=== PATIENT | male | born 1960 | race Caucasian/White ===

== ENCOUNTER 2022-05-15 07:59 | Outpatient (CLI) | payer BC, SELFPAY | END 2022-05-15 08:00 | disposition home or self-care (01) | LOC: ANHSURGERY 08:04 | PROVIDERS: PCP Family Medicine; Visit Provider Surgery | DX: Z01.812 Encounter for preprocedural laboratory examination (principal); K43.2 Incisional hernia without obstruction or gangrene | CPT/HCPCS: 36415; 86850; 86900; 86901 ==

== ENCOUNTER 2022-05-15 08:04 | Outpatient (CLI) | payer BC, SELFPAY ==
[2022-05-15 10:12] LABS: Basophils Percent Auto 0.7 % (0.2-1.2); Eosinophils Absolute Auto 0.1 K/mm3 (0-0.3); Eosinophils Percent Auto 1.8 % (0-4.4); Hematocrit 44.8 % (42.0-52.0); Hemoglobin 15.1 g/dL (14.0-18.0); Immature Granulocyte Absolute 0.01 K/mm3 (0.00-0.031); Immature Granulocyte Percent A 0.2 % (0-0.5); Lymphocytes Absolute Auto 2.32 K/mm3 (0.9-3.2); Lymphocytes Percent Auto 40.8 % (18.3-44.2); Mean Corpuscular HGB Conc 33.7 g/dl (32-36); Mean Corpuscular Hemoglobin 29.8 pg (26-34); Mean Corpuscular Volume 88.4 fl (80-100); Mean Platelet Volume 9.5 fl (7.4-10.4); Monocytes Absolute Auto 0.4 K/mm3 (0.1-0.6); Monocytes Percent Auto 6.3 % (2.6-8.5); Neutrophils Absolute Auto 2.9 K/mm3 (1.3-6.7); Neutrophils Percent Auto 50.2 % (45.5-73.1); Platelet Count Result 233 k/mm3 (150-375); Red Blood Count 5.07 M/mm3 (4.6-6.20); Red Cell Distribution Width 13.8 % (11.5-14.5); White Blood Count 5.7 K/mm3 (4.5-10.0)
[2022-05-15 10:15] LABS: Alanine Aminotransferase 33 U/L (6-50); Albumin Level 4.5 g/dL (3.5-5.1); Alkaline Phosphatase 68 U/L (38-126); Anion Gap 9 mmol/L (8-16); Aspartate Amino Transferase 32 U/L (17-59); Bilirubin,Total 1.4 mg/dL (0.2-1.3); Blood Urea Nitrogen 17 mg/dL (9-20); Calcium 9.4 mg/dL (8.4-10.2); Carbon Dioxide 27 mmol/L (22-30); Chloride 105 mmol/L (98-107); Cholesterol 219 mg/dL (0-200); Estimated Glomerular Filt Rate > 60; Glucose 100 mg/dL (65-110); HDL Direct 34 mg/dL; Potassium 4.3 mmol/L (3.4-5.0); Sodium 141 mmol/L (137-145); Triglycerides 210 mg/dL (<150)
[2022-05-15 10:25] LABS: Hemoglobin A1C 5.4 % (<5.7); LDL Cholesterol Direct 137 mg/dL
[2022-05-15 10:44] LABS: Prostate Specific Antigen 1.4 ng/mL (< OR = 4.0)
[2022-05-23 15:46] LABS: Testosterone Free 63.9 pg/mL (35.0-155.0); Testosterone Total 463 ng/dL (250-1100)
== END 2022-05-15 08:05 | disposition home or self-care (01) ==
PROVIDERS: PCP Family Medicine; Visit Provider Family Medicine
DX: R53.83 Other fatigue (principal); Z13.228 Encounter for screening for other metabolic disorders; E66.9 Obesity, unspecified; R73.01 Impaired fasting glucose; Z13.220 Encounter for screening for lipoid disorders; Z12.5 Encounter for screening for malignant neoplasm of prostate
CPT/HCPCS: 36415; 80053; 80061; 83036; 84153; 84402; 84403; 85025; 86850; 86900; 86901; G0103

== ENCOUNTER 2022-05-19 00:22 | Day surgery (SDC) | payer BC, SELFPAY ==
[2022-05-09 10:53] VITALS: BMI 35.8
--- NOTE | 2022-05-09 10:56 | PC.NURSE ---
Report to the Outpatient Waiting Room, entrance under the green pavilion located off [facility], at time 10:30 on date 05/19/22. Planned Procedure Time: 12:30. Time changes happen often and if your time is changed the preop area will call you the afternoon before. - You and your visitor will be asked to self-screen and do not enter if you have any COVID symptoms. - Only one visitor is requested with a max of two and NO children visitors are allowed at this time. - The patient visitor may be requested to leave or wait in car when not with patient due to distancing restrictions. - A mask is optional within the hospital at this time. Patients may have clear liquids (water, carbonated beverages, clear teas, apple juice) until 3 hours prior to surgery (9:30) with a maximum of 20 ounces. - No food from midnight until time of surgery Take the following medications with a SIP of water the morning of surgery: NONE DO NOT STOP ANY OF YOUR OTHER PRESCRIPTION MEDICATIONS PRIOR TO SURGERY EXCEPT THE FOLLOWING Medications to discontinue per physician: VITAMINS/SUPPLEMENTS Date to take last dose: 05/15/22 Please no make-up, nail citizen of [place], hairspray, perfume, deodorant, or body powder the day of surgery. No jewelry (including any body piercings) or valuables the day of surgery, leave them at home. Please take a shower or bath the night before, or the morning of, surgery with an antibacterial soap (HIBICLENS). Wear comfortable, loose fitting clothing. - Jewelry must be removed prior to entering the operating room. Rings and piercings that are not removed may be cut off. - The hospital will not accept responsibility for valuables. - Please leave all valuables, including medications, at home the day of surgery. If you are going home after surgery, a licensed school bus driver/mechanic must drive you home. - NO public transportation without another adult if you receive anesthesia. - We recommend that an adult stay with you for 24 hours following discharge. - We also recommend that you do not drive, make important decision, drink alcoholic beverages, or take any drugs that were not prescribed by your health care provider for at least 24 hours after your discharge time. Follow any additional instructions given to you from your surgeon. If you or anyone in your household have experienced Covid symptoms in the past week, please notify your surgeon or the nurse liaison at the phone number below for possible testing. Telephone instructions given to MANUEL TRUJILLO and asked if any additional questions and then verbalized understanding. Patient advised to call surgeon office or pre surgery nurse liaison [phone] if any additional questions.
[2022-05-19] VITALS (9 sets, daily range): BP systolic 106–152; BP diastolic 62–90; PULSE 46–58; RESP 12–16; TEMP 36.1–36.4; O2SAT 92–100
--- NOTE | 2022-05-19 07:21 | PM.IMHP ---
H&P: HPI History of Present Illness Date/Time: 05/19/22 07:21 Chief Complaint: periumbilical incisional hernia Narrative: Darrel is a 61 y/o male who presents to the office at the request of Dr. Ordonez for evaluation of an umbilical bulge. He states he first noticed this several years ago. He states he does have occasional pain at his umbilicus after heavy lifting. He states the bulge is not reducible. He denies any problems with BM's. Review of Systems Review of Systems: All systems reviewed & are unremarkable except as noted in HPI and below PMFSH Past Medical History Medical History Cochlear implant in place (~2010) Cochlear implant in place (~2013) FH: cholecystectomy (~2017) Surgical History Surgical History History of cochlear implant 2012 and 2015 Hx laparoscopic cholecystectomy 2017 Family History Family History Father Hypertension Heart disease Mother Hypertension Social History Social History Social History: Caffeine- coffee/soda Smoking status: Never smoker Alcohol intake: current Drinks per week: 4 Alcohol use details: BEER Substance use: never Substance use type: does not use Living arrangements: alone Spiritual care concerns: No Meds Home Medications and Allergies Home Medications Medication Instructions Recorded Confirmed Type cholecalciferol (vitamin D3) 125 125 mcg PO DAILY 05/09/22 05/09/22 History mcg (5,000 unit) tablet (Vitamin D3) coenzyme Q10 100 mg capsule 100 mg PO DAILY 05/09/22 05/09/22 History (CoQ-10) multivitamin 1 tablet PO DAILY 05/09/22 05/09/22 History omega 6-ldn-rlo-fish oil 1,000 mg 1 cap PO DAILY 05/09/22 05/09/22 History (120 mg-180 mg) capsule (Fish Oil) zinc acetate 50 mg (zinc) capsule 50 mg PO DAILY 05/09/22 05/09/22 History Allergies Allergy/AdvReac Type Severity Reaction Status Date / Time No Known Allergies Allergy Verified 05/09/22 10:54 Exam Const: General: cooperative, comfortable and no acute distress Resp: Auscultation: clear to auscultation bilaterally Cardio: Rate: regular rate Rhythm: regular rhythm GI: Inspection: normal to inspection and non-distended GI Palp: Yes abdominal tenderness, Yes Tenderness to palpation present (GI) and Yes Hernia present (supraumbilical incisional hernia measuring approx 3 cm) Assessment and Plan Assessment and plan (1) Incisional hernia: Qualifiers: Obstruction and gangrene presence: without obstruction or gangrene Qualified Code(s): K43.2 - Incisional hernia without obstruction or gangrene Code(s): K43.2 - Incisional hernia without obstruction or gangrene Status: Acute Assessment and Plan: will setup for robotic assisted repair c mesh
--- NOTE | 2022-05-19 10:35 | WPDHPUPDATE1 ---
History and Physical Update Update Date/Time: 05/19/22 10:35 History and Physical has been reviewed, including an updated exam of the patient. There are NO changes in the patient's condition. Risks, benefits, and alternatives have been discussed and questions answered. Patient agrees to proceed with procedure.
--- NOTE | 2022-05-19 10:50 | WPDANESEPPF ---
Anes - Initial Pre Proc Eval Procedure: Operation Date: 05/19/22 12:30 Proposed Procedures p Robotic Assisted Incisional Hernia Repair - Mary Alice Mckeon MD Date/Time: 05/19/22 10:50 Surgeon: Mary Alice Mckeon MD Pre Op Diagnosis: incisional hernia Patient Data Age: 61 Gender: M Height: 1.83 m Weight: 121.8 kg Last Vital Signs Temp 97.6 F 05/19/22 10:15 Pulse 58 L 05/19/22 10:15 Resp 16 05/19/22 10:15 BP 152/82 H 05/19/22 10:15 Pulse Ox 100 05/19/22 10:15 O2 Del Method Room Air 05/19/22 10:15 Allergies Allergy/AdvReac Type Severity Reaction Status Date / Time No Known Allergies Allergy Verified 05/19/22 10:29 Home Medications Medication Instructions Recorded Confirmed Type cholecalciferol (vitamin D3) 125 125 mcg PO DAILY 05/09/22 05/19/22 History mcg (5,000 unit) tablet (Vitamin D3) coenzyme Q10 100 mg capsule 100 mg PO DAILY 05/09/22 05/19/22 History (CoQ-10) multivitamin 1 tablet PO DAILY 05/09/22 05/19/22 History omega 7-clf-ccw-fish oil 1,000 mg 1 cap PO DAILY 05/09/22 05/19/22 History (120 mg-180 mg) capsule (Fish Oil) zinc acetate 50 mg (zinc) capsule 50 mg PO DAILY 05/09/22 05/19/22 History Patient hx anesthesia problems: none Family hx anesthesia problems: none Results Review: All pre-operative results and documents have been reviewed as part of the pre-operative evaluation. [facility] Past Medical History Medical History Cochlear implant in place (~2010) Cochlear implant in place (~2013) FH: cholecystectomy (~2017) Surgical History Surgical History History of cochlear implant 2012 and 2016 Hx laparoscopic cholecystectomy 2018 Family History Family History Father Hypertension Heart disease Mother Hypertension Social History Social History Social History: Caffeine- coffee/soda Smoking status: Never smoker Alcohol intake: current Drinks per week: 4 Alcohol use details: BEER Substance use: never Substance use type: does not use Living arrangements: alone Spiritual care concerns: No Anes - Eval Final PreProcedure Day of Procedure 05/19/22 10:50 Patient weight: obese Heart: regular rate and rhythm Lungs: clear to auscultation Airway: Mallampati scale class III Neurological: alert and oriented Last oral intake: >/= 8 hours ASA classification: III Emergent: no Anesthetic plan: proceed Anesthesia type and monitoring: general ETT and standard monitoring Results Review: All pre-operative results and documents have been reviewed as part of the pre-operative evaluation. Informed Consent: The patient's anesthetic plan and its attendant risks and benefits were discussed with the patient/family/POA. Questions were solicited and answers provided to the satisfaction of the patient/family/POA.
[2022-05-19] MEDS: LACTATED RINGERS 1,000 ML 30 ML IV CONT ×2 (11:00→13:42)
[2022-05-19] MEDS: ACETAMINOPHEN 500 MG TABLET 1000 MG PO (11:00)
[2022-05-19] MEDS: KETOROLAC 15 MG/ML VIAL (*BKC) IV PUSH (11:01)
[2022-05-19] MEDS: ceFAZolin 3 GM/D5W 100 ML 100 ML IVPB (11:17)
[2022-05-19] MEDS: BUPIVACAINE/EPINEPHRINE 0.5% 50 ML VIAL 30 ML INFILTRATE (11:25)
--- NOTE | 2022-05-19 13:36 | W.PM.PROC2 ---
Procedure Note - Detailed Date of Procedure 05/19/22 Pre-op Diagnosis recurrent incisional hernia measuring approximately 3.5 cm Post-op Diagnosis Same Procedure Performed robotic assisted transabdominal preperitoneal repair recurrent incisional hernia measuring approximately 3.5 cm with mesh Surgeon Mary Alice Mckeon MD Anesthesia General Indications 61-year-old male presenting with supraumbilical bulging progressively worsening over the last few years. The patient reports he had previous cholecystectomy and subsequent hernia repair in the area. Findings Supraumbilical recurrent incisional hernia measuring 3.5 cm Description of Procedure The patient was taken the operating room placed in the supine position. After adequate induction of general anesthesia, the patient was prepped and draped in normal sterile fashion. A time-out was then done to verify the patient's identity as well as the procedure being performed. I began by making a 5 mm incision in the left upper quadrant. Through this, a Veress needle was placed into the peritoneal cavity and CO2 gas was insufflated. After adequate pneumoperitoneum was achieved, a 5 mm trocar was placed through this incision. I then placed the laparoscope through this trocar site and under direct visualization I placed a 8 mm port in the left mid abdomen as well as an additional 8 mm port in the left lower abdomen. I then moved the camera to the lower port and replaced the 5 mm port with a 12 mm airport. The robot was then docked to the 3 port sites. I then went to the robotic console. I began by identifying the hernia. A moderate-sized incarcerated supraumbilical hernia was noted. I created a preperitoneal flap approximately 3 cm lateral to the hernia. This flap was carried widely superior and inferior to the defect. I then was able to reduce this hernia. The hernia was noted to contain a large amount of preperitoneal fat. Once reduced, I also reduced and dissected out the hernia sac. There was noted to be permanent suture from previous repair. I then carried the flap distally past the hernia. I then closed the approximately 3.5 cm defect with 0 strata fix suture. I then placed a 4.[address] mesh into the abdominal cavity. The positional stitch was placed in the middle of the mesh and brought up centering the mesh over the defect. Once this was done, I used 2 O Vicryl suture in an interrupted fashion to secure the mesh to the abdominal wall in all 4 cardinal directions. Once the mesh was sutured in, I was happy with our tension-free repair. The mesh was noted to have good overlap of the defect. I then removed the positioning device. I then closed the flap with 2 0 V lock. At this point, the robot was undocked and all ports were removed. I then closed the 12 mm port site with an 0 Vicryl [id number]-[id number] suture at the fascial level. All port sites were then closed with 4 O Monocryl subcuticular suture. The patient tolerated the procedure well, is extubated in the operating room postoperative, and will be transferred to the recovery room in stable condition. Implants 11 cm Ventralight mesh placed in the preperitoneal position Estimated Blood Loss 5 Drains No Packing No Pathology None sent Complications No immediate complications Condition Stable Disposition PACU [facility] Billing Surgery - Charge Forward: Surgery Billing
[2022-05-19] MEDS: oxyCODONE HCL (*CRX) 5 MG TAB IR PO (15:12)
== END 2022-05-19 16:14 | disposition home or self-care (01) ==
PROVIDERS: PCP Family Medicine; Visit Provider Surgery
PROC: (CPT 49615; principal; 2022-05-19 12:30)
DX: K43.2 Incisional hernia without obstruction or gangrene (principal); E66.9 Obesity, unspecified; Z68.36 Body mass index [BMI] 36.0-36.9, adult
CPT/HCPCS: 49615; S2900; A9270; C1781; J0690; J1100; J1885; J2250; J2405; J2704; J3010; J7030; J7120

== ENCOUNTER 2022-06-10 20:31 | Inpatient (IN) | payer BC, SELFPAY ==
--- NOTE | ~2022-06-10 | XR_ITS ---
Portable upright view of the abdomen Clinical history: NG tube placement Findings: NG tube is in satisfactory position. Multiple dilated small bowel loops are compatible with obstruction. No free air evident. No abnormal mass lesion or calcification is seen. Osseous structur es are intact. Impression: NG tube in satisfactory position. Small bowel obstruction. Reviewed, dictated and finalized at location . Impression: NG tube in satisfactory position. Small bowel obstruction.
--- NOTE | ~2022-06-10 | CT_ITS ---
CT of the Abdomen and Pelvis: Indication: Abdominal pain, recent surgery Technique: 2.5 mm axial scans were obtained through the abdomen and pelvis following intravenous adm inistration of 100 cc of Omnipaque 350. Dose reduction technique was used on this scan by utilizing a utomated exposure control and iterative reconstruction technique. The dose-length product (DLP) was 1 168.30 mGy-cm. Findings: Scans through the lung bases are unremarkable. There is an 8 mm hypodense structure in the inferior right hepatic lobe, indeterminate (axial image 7 6). The spleen, pancreas, adrenals and kidneys are within normal limits. Cholecystectomy clips are pr esent. No evidence of aortic aneurysm. No lymphadenopathy. There are multiple dilated loops of small bowel, with abrupt transition point anteriorly just right o f midline at the level of the umbilicus (axial image 109). Distal small bowel loops and large bowel a re decompressed. There is mild inflammatory change about the region of the transition point, with pos sible focal herniation or adherence of small bowel loops anteriorly at the site of the transition poi nt. Images through the pelvis were performed. Urinary bladder unremarkable. Prostate gland is mildly enla rged. Trace pelvic ascites present. Bilateral L5 pars interarticularis defects are present. Impression: Small bowel obstruction, with transition point as detailed above. Possible focal herniation or adhere nce of small bowel loops anteriorly at the site of the transition point. Trace pelvic ascites. 8 mm indeterminate hypodense structure in the right hepatic lobe. Reviewed, dictated and finalized at [facility]. Impression: Small bowel obstruction, with transition point as detailed above. Possible foca l herniation or adherence of small bowel loops anteriorly at the site of the tr ansition point. Trace pelvic ascites. 8 mm indeterminate hypodense structure in the right hepatic lobe.
[2022-06-10 20:38] VITALS: BP 131/87; PULSE 84; RESP 17; TEMP 36.4; O2SAT 100
[2022-06-10 20:58] LABS: Basophils Percent Auto 0.2 % (0.2-1.2); Eosinophils Absolute Auto 0.1 K/mm3 (0-0.3); Eosinophils Percent Auto 0.4 % (0-4.4); Hematocrit 50.7 % (42.0-52.0); Immature Granulocyte Absolute 0.03 K/mm3 (0.00-0.031); Immature Granulocyte Percent A 0.2 % (0-0.5); Lymphocytes Absolute Auto 1.89 K/mm3 (0.9-3.2); Lymphocytes Percent Auto 14.3 % (18.3-44.2); Mean Corpuscular HGB Conc 33.5 g/dl (32-36); Mean Corpuscular Hemoglobin 29.9 pg (26-34); Mean Corpuscular Volume 89.1 fl (80-100); Monocytes Absolute Auto 0.8 K/mm3 (0.1-0.6); Monocytes Percent Auto 5.8 % (2.6-8.5); Neutrophils Absolute Auto 10.5 K/mm3 (1.3-6.7); Neutrophils Percent Auto 79.1 % (45.5-73.1); Platelet Count Result 289 k/mm3 (150-375); Red Blood Count 5.69 M/mm3 (4.6-6.20); Red Cell Distribution Width 13.5 % (11.5-14.5); White Blood Count 13.2 K/mm3 (4.5-10.0)
[2022-06-10 21:12] LABS: Alanine Aminotransferase 62 U/L (6-50); Albumin Level 5.2 g/dL (3.5-5.1); Alkaline Phosphatase 98 U/L (38-126); Anion Gap 16 mmol/L (8-16); Aspartate Amino Transferase 54 U/L (17-59); Bilirubin,Total 3.6 mg/dL (0.2-1.3); Blood Urea Nitrogen 34 mg/dL (9-20); Calcium 10.2 mg/dL (8.4-10.2); Carbon Dioxide 22 mmol/L (22-30); Chloride 96 mmol/L (98-107); Estimated CRCL calculation 65 ml/min; Estimated Glomerular Filt Rate 51; Glucose 120 mg/dL (65-110); Lipase 90 U/L (23-300); Potassium 4.4 mmol/L (3.4-5.0); Sodium 134 mmol/L (137-145)
[2022-06-10 22:37] LABS: Appearance Urine Cloudy (Clear); Bacteria Urine None Seen /hpf; Bilirubin Urine 2+ (Negative); Blood Urine Trace (Negative); Calcium Oxalate Crystals Urine Present /hpf; Color Urine Dark Yellow (Yellow); Glucose Urine UA Negative (Negative); Hyaline Casts Urine Present /lpf; Ketones Urine Trace mg/dL (Negative); Leukocyte Esterase Ur Trace LEU/UL (Negative); Mucus Urine Present /lpf; Nitrate Urine Negative (Negative); Protein Urine 2+ mg/dL (Negative); RBC Urine 21-50 /hpf (0-2); Squamous Epithelial Cell Urine Occasional /hpf (Few)
[2022-06-10 22:43] LABS: Specific Grav Ur 1.036 (1.001-1.035)
[2022-06-10 22:46] LABS: Add Urine Microscopic? YES
[2022-06-10] MEDS: SODIUM CHLORIDE 0.9% IV 1,000 ML 999 ML IV CONT (23:59)
[2022-06-11] VITALS (16 sets, daily range): BP systolic 122–151; BP diastolic 59–90; PULSE 50–67; RESP 10–20; TEMP 35.9–37.4; O2SAT 67–98; BMI 34.4
[2022-06-11] MEDS: ONDANSETRON INJ 4 MG/2 ML VIAL IV PUSH
--- NOTE | 2022-06-11 01:39 | ED.GENADULT ---
HPI - General Adult General Chief complaint: Abdominal Pain Stated complaint: abd pain Time Seen by Provider: 06/10/22 23:37 History of Present Illness HPI narrative: Patient is a 59-year-old gentleman who presents the emergency department with chief complaint of abdominal discomfort. Patient reports that he had a hernia surgery done by Dr. Courtney on the the patient reports that since Thursday he started having some discomfort in his abdomen some fullness and reports that he had some nausea and vomiting patient reports that he had a bowel movement on Thursday reports has not had a bowel movement since the patient does report that is not passing gas patient denies fever Related Data Home Medications Medication Instructions Recorded Confirmed cholecalciferol (vitamin D3) 125 125 mcg PO DAILY 05/09/22 06/03/22 mcg (5,000 unit) tablet (Vitamin D3) coenzyme Q10 100 mg capsule 100 mg PO DAILY 05/09/22 06/03/22 (CoQ-10) multivitamin 1 tablet PO DAILY 05/09/22 06/03/22 omega 4-dph-qyv-fish oil 1,000 mg 1 cap PO DAILY 05/09/22 06/03/22 (120 mg-180 mg) capsule (Fish Oil) zinc acetate 50 mg (zinc) capsule 50 mg PO DAILY 05/09/22 06/03/22 Allergies Allergy/AdvReac Type Severity Reaction Status Date / Time No Known Allergies Allergy Verified 06/03/22 10:09 Review of Systems Review of Systems: A 10 system review of systems was completed on the patient and is negative except for what is stated in the HPI. Nursing and ancillary documentation was reviewed. PMFSH Past Medical History Medical History Cochlear implant in place (~2010) Cochlear implant in place (~2013) FH: cholecystectomy (~2017) Surgical History Surgical History History of cochlear implant 2012 and 2015 Hx laparoscopic cholecystectomy 2018 S/P hernia repair robotic assisted transabdominal preperitoneal repair recurrent incisional hernia measuring approximately 3.5 cm with mesh 05/19/22 Family History Family History Father Hypertension Heart disease Mother Hypertension Social History Social History Social History: Caffeine- coffee/soda Smoking status: Never smoker Alcohol intake: current Drinks per week: 4 Alcohol use details: BEER Substance use: never Substance use type: does not use Living arrangements: alone Spiritual care concerns: No Exam Narrative: GENERAL: Well-appearing, well-nourished, and in no acute distress. HEAD: Normocephalic, atraumatic. EYES: PERRLA and EOMI. ENT: Nares clear, no rhinorrhea or epistaxis. Mucous membranes moist. NECK: Supple. CHEST: Clear to auscultation. No respiratory distress. HEART: Regular rate and rhythm. No murmur heard. Normal peripheral pulses. ABDOMEN: Soft, diffuse mild tenderness to palpation, nondistended, normal active bowel sounds. EXTREMITIES: Normal range of motion. No edema. SKIN: Warm, dry, no rash. NEURO: No focal deficits. Alert and oriented x3. PSYCH: Normal mood and affect. Course Vital Signs Vital signs: Vital Signs Temperature 36.4 C 06/10/22 20:38 Pulse Rate 84 06/10/22 20:38 Respiratory Rate 17 06/10/22 20:38 Blood Pressure 131/87 06/10/22 20:38 Pulse Oximetry 100 06/10/22 20:38 Oxygen Delivery Room Air 06/10/22 20:38 Temperature 36.4 C 06/10/22 20:38 Pulse Rate 57 L 06/11/22 01:31 Respiratory Rate 16 06/11/22 01:31 Blood Pressure 124/68 06/11/22 01:31 Pulse Oximetry 98 06/11/22 01:31 Oxygen Delivery Room Air 06/10/22 20:38 Medical Decision Making [facility] Narrative Medical decision making narrative: Differential diagnosis includes small bowel obstruction, intra-abdominal infection, perforation Laboratory studies were obtained which showed a white bloo
[2022-06-11] MEDS: SODIUM CHLORIDE 0.9% IV 1,000 ML 125 ML IV CONT ×2 (03:26→18:19)
--- NOTE | 2022-06-11 04:22 | ADMGEN ---
This patient, Darrel Montenegro, was admitted to 2 Medical Room 259-01. Patient/family oriented to hospital policies and general routines including ID bracelet, bed and alarms, visiting hours, pain management, procedures, bathroom and other care routines, personal items, smoking policy, room service/diet, and visiting hours. Information on how to activate the Rapid Response Team has been discussed. Patient/Family are encouraged to report perceived risks to care and to ask questions if they do not understand what they are told or what they should do.
--- NOTE | 2022-06-11 10:01 | PM.IMHP ---
H&P: HPI History of Present Illness Date/Time: 06/11/22 10:01 Chief Complaint: Abdominal pain Narrative: The patient is a 61-year-old male presenting to the emergency department complaining of progressively worsening, crampy abdominal pain. The patient reports that the pain has been progressively worsening over the last 3-4 days. The patient reports that the pain is diffuse in nature and crampy. The patient reports he had a normal bowel movement on Thursday, however has not really had any bowel function since. The patient reports he has been progressively more nauseous and has had multiple episodes of emesis over the last day or so. The patient reports poor appetite with the episode. Review of Systems Constitutional: Constitutional: Reports as per HPI, Reports anorexia, Denies chills, Reports fatigue, Denies fever(s), Denies increased appetite, Reports lethargy, Reports malaise, Denies night sweats, Reports poor appetite, Denies snoring, Reports weakness, Denies weight gain and Denies weight loss ENT: Reports system reviewed and no additional complaints, except as documented Cardiovascular: Cardiovascular: Reports no additional cardiovascular complaints Respiratory: Respiratory: Reports no additional respiratory complaints Gastrointestinal: Gastrointestinal: Reports as per HPI, Reports abdominal pain, Reports belching, Reports bloating, Reports change in bowel habits, Reports constipation, Reports GI cramping, Reports early satiety, Reports nausea, Reports vomiting and Denies hematemesis Genitourinary: Genitourinary: Reports no additional male genitourinary complaints Musculoskeletal: Musculoskeletal: Reports no additional musculoskeletal complaints Integumentary/Breasts: Skin/Breast: Reports system reviewed and no additional complaints, except as docu Neurologic: Reports system reviewed and no additional complaints, except as documented Psychiatric: Psychiatric: Reports no additional psychiatric complaints Endocrine: Endocrine: Reports no additional endocrine complaints Hematologic/Lymphatic: Hematologic/Lymphatic: Reports no additional hematologic/lymphatic complaints Allergic/Immunologic: Allergic/Immunologic: Reports no additional allergic/immunologic complaints PMFSH Past Medical History Medical History Cochlear implant in place (~2010) Cochlear implant in place (~2013) FH: cholecystectomy (~2018) Surgical History Surgical History History of cochlear implant 2012 and 2015 Hx laparoscopic cholecystectomy 2018 S/P hernia repair robotic assisted transabdominal preperitoneal repair recurrent incisional hernia measuring approximately 3.5 cm with mesh 05/19/22 Family History Family History Father Hypertension Heart disease Mother Hypertension Social History Social History Social History: Caffeine- coffee/soda Smoking status: Never smoker Alcohol intake: current Drinks per week: 3 Alcohol use details: BEER Substance use: never Substance use type: does not use Lack of Transportation: No Lack of Food: Never True Current Housing: I Have Housing Concerned About Future Housing: No Difficulty Paying Gas/Electric Bills: No Difficulty Paying for Meds: No Currently Unemployed: No Education: Bachelor's Degree Difficulty w/ Childcare or Family Care: No Living arrangements: alone Spiritual care concerns: No Meds Home Medications and Allergies Home Medications Medication Instructions Recorded Confirmed Type cholecalciferol (vitamin D3) 125 125 mcg PO DAILY 05/09/22 06/11/22 History mcg (5,000 unit) tablet (Vitamin D3) coenzyme Q10 100 mg capsule 100 mg PO DAILY 05/09/22 06/11/22 History (CoQ-10) multivitamin 1 tablet PO DAILY 05/09/22
--- NOTE | 2022-06-11 10:13 | WPDHPUPDATE1 ---
History and Physical Update Update Date/Time: 06/11/22 10:13 History and Physical has been reviewed, including an updated exam of the patient. There are NO changes in the patient's condition. Risks, benefits, and alternatives have been discussed and questions answered. Patient agrees to proceed with procedure. plan for diagnostic laparoscopy, possible bowel resection
--- NOTE | 2022-06-11 14:02 | WPDANESEPPF ---
Anes - Initial Pre Proc Eval Procedure: Operation Date: 06/11/22 15:00 Proposed Procedures p Exploratory Laparoscopy - Mary Alice Mckeon MD Date/Time: 06/11/22 14:02 Surgeon: Maximilian French DO Pre Op Diagnosis: Small Bowel Obstruction Patient Data Age: 61 Gender: M Height: 1.83 m Weight: 115.3 kg Last Vital Signs Temp 37.1 C 06/11/22 13:59 Pulse 62 06/11/22 13:59 Resp 16 06/11/22 13:59 BP 132/79 06/11/22 13:59 Pulse Ox 96 06/11/22 13:59 O2 Del Method Room Air 06/11/22 13:59 Allergies Allergy/AdvReac Type Severity Reaction Status Date / Time No Known Allergies Allergy Verified 06/03/22 10:09 Home Medications Medication Instructions Recorded Confirmed Type cholecalciferol (vitamin D3) 125 125 mcg PO DAILY 05/09/22 06/11/22 History mcg (5,000 unit) tablet (Vitamin D3) coenzyme Q10 100 mg capsule 100 mg PO DAILY 05/09/22 06/11/22 History (CoQ-10) multivitamin 1 tablet PO DAILY 05/09/22 06/11/22 History omega 9-ldy-gel-fish oil 1,000 mg 2 cap PO DAILY 05/09/22 06/11/22 History (120 mg-180 mg) capsule (Fish Oil) zinc acetate 50 mg (zinc) capsule 100 mg PO DAILY 05/09/22 06/11/22 History docusate sodium 100 mg capsule 100 mg PO BID #30 caps 05/19/22 06/11/22 Rx (Colace) Laboratory Tests 06/10/22 06/10/22 06/10/22 20:46 20:46 21:13 WBC 13.2 K/mm3 H K/mm3 (4.5-10.0) RBC 5.69 M/mm3 M/mm3 (4.6-6.20) Hgb 17.0 g/dL g/dL (14.0-18.0) Hct 50.7 % % (42.0-52.0) MCV 89.1 fl fl (80-100) MCH 29.9 pg pg (26-34) MCHC 33.5 g/dl g/dl (32-36) RDW 13.5 % % (11.5-14.5) Plt Count 289 k/mm3 k/mm3 (150-375) MPV 9.0 fl fl (7.4-10.4) Immature Gran % (Auto) 0.2 % % (0-0.5) Neut % (Auto) 79.1 % H % (45.5-73.1) Lymph % (Auto) 14.3 % L % (18.3-44.2) Glynn % (Auto) 5.8 % % (2.6-8.5) Eos % (Auto) 0.4 % % (0-4.4) Baso % (Auto) 0.2 % % (0.2-1.2) Lymph # (Auto) 1.89 K/mm3 K/mm3 (0.9-3.2) Glynn # (Auto) 0.8 K/mm3 H K/mm3 (0.1-0.6) Eos # (Auto) 0.1 K/mm3 K/mm3 (0-0.3) Baso # (Auto) 0.0 K/mm3 K/mm3 (0.0-0.1) Abs Immat Gran (auto) 0.03 K/mm3 K/mm3 (0.00-0.031) Absolute Neuts (auto) 10.5 K/mm3 H K/mm3 (1.3-6.7) Absolute Nucleated RBC 0.0 K/mm3 K/mm3 (0.0-0.012) Nucleated RBC % 0.0 % % (0.0-0.2) Sodium 134 mmol/L L mmol/L (137-145) Potassium 4.4 mmol/L mmol/L (3.4-5.0) Chloride 96 mmol/L L mmol/L (98-107) Carbon Dioxide 22 mmol/L mmol/L (22-30) Anion Gap 16 mmol/L mmol/L (8-16) BUN 34 mg/dL H D mg/dL (9-20) Creatinine 1.40 mg/dL H mg/dL (0.7-1.3) Estim Creat Clear Calc 65 ml/min ml/min Estimated GFR 51 L (59 - ) Glucose 120 mg/dL H mg/dL (65-110) Calcium 10.2 mg/dL mg/dL (8.4-10.2) Total Bilirubin 3.6 mg/dL H mg/dL (0.2-1.3) AST 54 U/L U/L (17-59) ALT 62 U/L H U/L (6-50) Alkaline Phosphatase 98 U/L U/L (38-126) Total Protein 9.0 g/dL H g/dL (6.3-8.2) Albumin 5.2 g/dL H g/dL (3.5-5.1) Lipase 90 U/L U/L (23-300) Urine Color Dark yellow (Yellow) Urine Appearance Cloudy H (Clear) Urine pH 5.0 (5.0-9.0) Ur Specific [place] 1.036 H (1.001-1.035) Urine Protein 2+ mg/dL H mg/dL (Negative) Urine Glucose (UA) Negative mg/dL mg/dL (Negative) Urine Ketones Trace mg/dL mg/dL (Negative) Ur Blood (Man) Trace (Negative) Urine Nitrate Negative (Negative) Urine Bilirubin 2+ H (Negative) Urine Urobilinogen 1.0 mg/dL mg/dL (<2.0) Leukocyte Esterase Rfl Trace DIANA/UL H DIANA/UL
--- NOTE | 2022-06-11 14:12 | PCCCNOTE ---
On 06/11/22, the student, [Herminia Armstrong ], provided care and completed [facility] documentation on this patient. I have reviewed the student's documentation and agree with the findings.
[2022-06-11] MEDS: LACTATED RINGERS 1,000 ML 30 ML IV CONT ×2 (14:13→15:50)
[2022-06-11] MEDS: ceFAZolin 2 GM/D5W 50 ML 2 GM/50 ML BAG IVPB (14:30)
[2022-06-11] MEDS: BUPIVACAINE/EPINEPHRINE 0.5% 50 ML VIAL INFILTRATE (14:58)
--- NOTE | 2022-06-11 15:42 | W.PM.PROC2 ---
Procedure Note - Detailed Date of Procedure 06/11/22 Pre-op Diagnosis Small Bowel Obstruction Post-op Diagnosis Other (Small bowel herniation through peritoneal flap dehiscence) Procedure Performed exploratory laparoscopy, reduction of herniated small bowel, repair of peritoneal flap dehiscence with absorbable tacks and omental patch Surgeon Mary Ailce Mckeon MD Anesthesia General Indications 61 year old male re-presented to the hospital with small-bowel obstruction after recurrent incisional hernia repair. Imaging consistent with herniation of small bowel through peritoneal defect Findings central peritoneal flap dehiscence measuring approximately 1 and half a cm Description of Procedure The patient was taken to the operating room placed in the supine position. After adequate induction of general anesthesia, the patient was prepped and draped in the normal sterile fashion. A time-out was then done to verify the patient's identity, as well as the procedure being performed. I began by localizing the previous port site in the left upper quadrant. I then made a 5 mm incision through this port site and a Veress needle was placed into the peritoneal cavity. CO2 gas was then insufflated through the Veress needle. After adequate pneumoperitoneum was achieved, the Veress needle was removed and placed a 5 mm Optiview under direct visualization into the peritoneal cavity. I then examined the abdominal cavity. There was noted to be some omental adhesions to the abdominal wall. There was noted to be a loop of small intestine herniated through a peritoneal defect. I then localized the area of the previously placed 5 mm left mid abdominal wall port site. An incision was made and under direct visualization a 5 mm port was placed into this site. I then took down the omental adhesions with the LigaSure device under direct visualization. I then used a nontraumatic grasper and gently reduced the loop of small intestine that was herniating into this peritoneal defect. I was able to reduce the small intestine back into the peritoneal cavity. Upon careful examination of the small intestine, it was noted to be friable and free of pathology. I then examined the defect in the peritoneum. The location of the defect was a central dehiscence of the previously made peritoneal flap. This defect was noted to measure approximately 1.5 cm. There was noted to be room around the defect to allow herniation. Given these findings, the decision was made to use a absorbable Tacker to tack the edges of the defect to the mesh. This was done with the absorbable Tacker under direct visualization. Once the edges were completely tacked circumferentially around the defect, placed an omental patch over the exposed mesh. The omentum was tacked to the mesh again using the absorbable Tacker. We then desufflated the abdomen, watching the repair come back into contact with the abdominal contents. No further area of possible future herniation was noted. Both port sites were then removed. Both port sites were closed with 4-0 Monocryl subcuticular suture and Dermabond was placed on these wounds. The patient tolerated the procedure well and will be transferred to the recovery room in stable condition. Estimated Blood Loss 10 Urine Output 0 Drains No Packing No Pathology None sent Complications No immediate complications Condition Stable Disposition PACU [facility] Billing Surgery - Charge Forward: Surgery Billing
[2022-06-11] MEDS: MORPHINE SULFATE (*CRX) 2 MG/ML INJ IV PUSH ×2 (18:16→22:30)
[2022-06-12] VITALS (7 sets, daily range): BP systolic 112–131; BP diastolic 62–70; PULSE 58–62; RESP 17–20; TEMP 32.7–37.2; O2SAT 91–97
[2022-06-12] MEDS: SODIUM CHLORIDE 0.9% IV 1,000 ML 125 ML IV CONT ×4 (00:30→23:36)
[2022-06-12 05:17] LABS: Hemoglobin 13.6 g/dL (14.0-18.0); Mean Corpuscular HGB Conc 33.2 g/dl (32-36); Mean Corpuscular Hemoglobin 29.7 pg (26-34); Mean Corpuscular Volume 89.5 fl (80-100); Mean Platelet Volume 8.9 fl (7.4-10.4); Platelet Count Result 231 k/mm3 (150-375); Red Blood Count 4.58 M/mm3 (4.6-6.20); Red Cell Distribution Width 13.2 % (11.5-14.5); White Blood Count 5.5 K/mm3 (4.5-10.0)
[2022-06-12 05:28] LABS: Alanine Aminotransferase 56 U/L (6-50); Albumin Level 3.8 g/dL (3.5-5.1); Alkaline Phosphatase 71 U/L (38-126); Anion Gap 6 mmol/L (8-16); Aspartate Amino Transferase 42 U/L (17-59); Bilirubin,Total 2.9 mg/dL (0.2-1.3); Blood Urea Nitrogen 29 mg/dL (9-20); Calcium 8.4 mg/dL (8.4-10.2); Carbon Dioxide 27 mmol/L (22-30); Chloride 101 mmol/L (98-107); Estimated CRCL calculation 75 ml/min; Estimated Glomerular Filt Rate > 60; Glucose 109 mg/dL (65-110); Potassium 4.2 mmol/L (3.4-5.0); Sodium 134 mmol/L (137-145)
[2022-06-12] MEDS: ENOXAPARIN 40 MG/0.4 ML SYRINGE SUB-Q (08:12)
--- NOTE | 2022-06-12 09:44 | WPDANESPN ---
Anes - Prog Note Post-Op Date/Time: 06/12/22 09:44 Cardiovascular status: normal Respiratory status: normal Airway patency: baseline Mental status: baseline Post-Op hydration status: normal Vital Signs: Last Vital Signs Temp 37.2 C 06/12/22 08:37 Pulse 59 L 06/12/22 08:37 Resp 18 06/12/22 08:37 BP 121/68 06/12/22 08:37 Pulse Ox 93 06/12/22 08:37 O2 Del Method Room Air 06/12/22 08:00 O2 Flow Rate 8 06/11/22 16:40 Pain Score (VAS): 05/23 I/O: Intake & Output 06/11/22 06/12/22 06/12/22 23:59 07:59 15:59 Intake Total 500 1000 1000 Output Total 600 0 Balance -100 1000 1000 Laboratory Tests 06/12/22 05:11 06/12/22 05:10 06/12/22 06/12/22 05:10 05:11 WBC 5.5 RBC 4.58 L Hgb 13.6 L D Hct 41.0 L MCV 89.5 MCH 29.7 MCHC 33.2 RDW 13.2 Plt Count 231 MPV 8.9 Sodium 134 L Potassium 4.2 Chloride 101 Carbon Dioxide 27 Anion Gap 6 L BUN 29 H Creatinine 1.20 Estim Creat Clear Calc 75 Estimated GFR > 60 Glucose 109 Calcium 8.4 Total Bilirubin 2.9 H AST 42 ALT 56 H Alkaline Phosphatase 71 Total Protein 7.0 Albumin 3.8 Microbiology 06/10/22 21:13 Urine Clean Catch Urine Culture - Final Post-procedural complaints: none Patient Feedback: Patient satisfied with anesthetic care.
--- NOTE | 2022-06-12 10:16 | PM.PNGS ---
Progress Note: A&P Assessment and Plan (1) Small bowel obstruction: Code(s): K56.609 - Unspecified intestinal obstruction, unspecified as to partial versus complete obstruction Status: Acute Assessment and Plan: doing well, will clamp NG and poss dc later today, start clears if NG out, encourage OOB/IS Subjective Subjective Date/Time Seen: 06/12/22 10:16 feels better, pain, N/V improved Review of Systems Review of Systems: All systems reviewed & are unremarkable except as noted in HPI and below Exam Const: General: cooperative, comfortable and no acute distress Resp: Auscultation: clear to auscultation bilaterally Cardio: Rate: regular rate Rhythm: regular rhythm GI: Inspection: normal to inspection, distended and incision GI Palp: Yes abdominal tenderness, Yes Soft to palpation, Yes Tenderness to palpation present (GI), No Guarding due to palpation present (GI) and No Rigid due to palpation Objective Data Vital Signs Vital Signs: Vital Signs - 24 hr 06/11/22 13:59 06/11/22 15:55 06/11/22 16:10 Temperature 37.1 C 36.9 C Pulse Rate 62 55 L 52 L Respiratory Rate 16 18 19 Blood Pressure 132/79 144/82 H 145/85 H Pulse Oximetry 96 96 95 Oxygen Delivery Room Air Simple Face Mask Simple Face Mask Oxygen Flow Rate 8 8 06/11/22 16:25 06/11/22 16:40 06/11/22 16:55 Temperature Pulse Rate 60 60 50 L Respiratory Rate 10 L 16 13 Blood Pressure 149/83 H 144/85 H 151/81 H Pulse Oximetry 98 98 92 Oxygen Delivery Simple Face Mask Simple Face Mask Room Air Oxygen Flow Rate 8 8 06/11/22 17:10 06/11/22 17:25 06/11/22 17:35 Temperature 36.4 C L Pulse Rate 60 56 L 59 L Respiratory Rate 16 15 18 Blood Pressure 137/86 137/90 141/84 H Pulse Oximetry 94 93 92 Oxygen Delivery Room Air Room Air Oxygen Flow Rate 06/11/22 17:50 06/11/22 18:20 06/11/22 19:20 Temperature 36.3 C L 36.3 C L 36.7 C Pulse Rate 61 58 L 67 Respiratory Rate 20 18 18 Blood Pressure 138/74 135/72 134/65 Pulse Oximetry 93 92 67 L Oxygen Delivery Oxygen Flow Rate 06/11/22 20:00 06/11/22 23:18 06/12/22 03:20 Temperature 37.4 C 32.7 C L Pulse Rate 66 60 Respiratory Rate 18 18 Blood Pressure 129/59 L 131/66 Pulse Oximetry 95 91 Oxygen Delivery Room Air Oxygen Flow Rate 06/12/22 06:05 06/12/22 08:37 06/12/22 08:00 Temperature 36.9 C 37.2 C Pulse Rate 59 L 59 L Respiratory Rate 18 18 Blood Pressure 121/68 Pulse Oximetry 93 93 Oxygen Delivery Room Air Oxygen Flow Rate Intake/Output Intake/Output: Intake & Output 06/09/22 06/10/22 06/11/22 06/12/22 23:59 23:59 23:59 23:59 Intake Total 3550 1999 Output Total 1000 0 Balance 2550 1999 Meds/Results Medications: Active Medications Generic Name Dose Route Start Last Admin Trade Name Freq PRN Reason Stop Dose Admin Diphenhydramine HCl 25 mg 06/11/22 17:35 Diphenhydramine Hcl Inj 50 Mg/Ml Vial IV PUSH Q6H PRN Itching Enoxaparin Sodium 40 mg 06/12/22 09:00 06/12/22 08:12 Enoxaparin 40 Mg/0.4 Ml Syringe SUB-Q 40 mg DAILY LUISITO Administration Sodium Chloride 1,000 mls @ 125 mls/hr 06/11/22 01:45 06/12/22 08:11 Normal Saline Iv IV CONT 125 mls/hr .Q8H LUISITO Administration Morphine Sulfate 4 mg 06/11/22 01:44 Morphine Sulfate (*Crx) 4 Mg/Ml Inj IV PUSH Q2H PRN Pain Rated 7-10 Morphine Sulfate 2 mg 06/11/22 17:35 06/11/22 22:30 Morphine Sulfate (*Crx) 2 Mg/Ml Inj IV PUSH 2 mg Q2H PRN Administration Pain Rated 4-6 Morphine Sulfate 4 mg 06/11/22 17:35 Morphine Sulfate (*Crx) 4 Mg/Ml Inj IV PUSH Q2H PRN Pain Rated 7-10 Naloxone HCl 0.1 mg 06/11/22 17:35 Naloxone Hcl 0.4 Mg/Ml Vial IV PUSH Q2M PRN Opiate Reversal Ondansetron HCl 4 mg 06/11/22 17:35 Ondansetron Inj 4 Mg/2 Ml Vial IV PUSH Q4H PRN Nausea And Vomiting Radiology Results: ITS Impressions Abdomen/Pelvis CT 06/11/22 05:5
--- NOTE | 2022-06-12 13:52 | PC.NURSE ---
On 06/12/22, the student, [Val Baer], provided care and completed [facility] documentation on this patient. I have reviewed the student's documentation and agree with the findings.
[2022-06-13] MEDS: MORPHINE SULFATE (*CRX) 2 MG/ML INJ IV PUSH (02:45)
[2022-06-13 04:12] VITALS: BP 124/67; PULSE 57; RESP 20; TEMP 37; O2SAT 95
[2022-06-13] MEDS: SODIUM CHLORIDE 0.9% IV 1,000 ML 125 ML IV CONT ×2 (07:27→21:06)
[2022-06-13] MEDS: ENOXAPARIN 40 MG/0.4 ML SYRINGE SUB-Q (08:46)
--- NOTE | 2022-06-13 10:32 | PC.NURSE ---
On 06/13/22, the student, [Val Baer], provided care and completed [facility] documentation on this patient. I have reviewed the student's documentation and agree with the findings.
--- NOTE | 2022-06-13 11:15 | PM.PNGS ---
Progress Note: A&P Assessment and Plan (1) Small bowel obstruction: Code(s): K56.609 - Unspecified intestinal obstruction, unspecified as to partial versus complete obstruction Status: Acute Assessment and Plan: slowly resolving, cont clears for now, encourage OOB/IS Subjective Subjective Date/Time Seen: 06/13/22 11:15 feels ok, +bowel fxn, some emesis this am Review of Systems Review of Systems: All systems reviewed & are unremarkable except as noted in HPI and below Exam Const: General: cooperative, comfortable and no acute distress Resp: Auscultation: clear to auscultation bilaterally Cardio: Rate: regular rate Rhythm: regular rhythm GI: Inspection: distended and incision GI Palp: Yes abdominal tenderness, Yes Soft to palpation, Yes Tenderness to palpation present (GI), No Guarding due to palpation present (GI) and No Rigid due to palpation Objective Data Vital Signs Vital Signs: Vital Signs - 24 hr 06/12/22 12:34 06/12/22 16:40 06/12/22 19:20 Temperature 36.8 C 36.6 C 36.9 C Pulse Rate 58 L 62 58 L Respiratory Rate 17 17 20 Blood Pressure 121/70 112/62 122/70 Pulse Oximetry 95 97 94 Oxygen Delivery 06/12/22 20:00 06/13/22 04:12 Temperature 37.0 C Pulse Rate 57 L Respiratory Rate 20 Blood Pressure 124/67 Pulse Oximetry 95 Oxygen Delivery Room Air Intake/Output Intake/Output: Intake & Output 06/10/22 06/11/22 06/12/22 06/13/22 23:59 23:59 23:59 23:59 Intake Total 3550 5760 1050 Output Total 1000 0 Balance 2550 5760 1050 Meds/Results Medications: Active Medications Generic Name Dose Route Start Last Admin Trade Name Freq PRN Reason Stop Dose Admin Diphenhydramine HCl 25 mg 06/11/22 17:35 Diphenhydramine Hcl Inj 50 Mg/Ml Vial IV PUSH Q6H PRN Itching Enoxaparin Sodium 40 mg 06/12/22 09:00 06/13/22 08:46 Enoxaparin 40 Mg/0.4 Ml Syringe SUB-Q 40 mg DAILY LUISITO Administration Sodium Chloride 1,000 mls @ 125 mls/hr 06/11/22 01:45 06/13/22 07:27 Normal Saline Iv IV CONT 125 mls/hr .Q8H LUISITO Administration Morphine Sulfate 4 mg 06/11/22 01:44 Morphine Sulfate (*Crx) 4 Mg/Ml Inj IV PUSH Q2H PRN Pain Rated 7-10 Morphine Sulfate 2 mg 06/11/22 17:35 06/13/22 02:45 Morphine Sulfate (*Crx) 2 Mg/Ml Inj IV PUSH 2 mg Q2H PRN Administration Pain Rated 4-6 Morphine Sulfate 4 mg 06/11/22 17:35 Morphine Sulfate (*Crx) 4 Mg/Ml Inj IV PUSH Q2H PRN Pain Rated 7-10 Naloxone HCl 0.1 mg 06/11/22 17:35 Naloxone Hcl 0.4 Mg/Ml Vial IV PUSH Q2M PRN Opiate Reversal Ondansetron HCl 4 mg 06/11/22 17:35 Ondansetron Inj 4 Mg/2 Ml Vial IV PUSH Q4H PRN Nausea And Vomiting Radiology Results: ITS Impressions Abdomen/Pelvis CT 06/11/22 05:52 Impression: Small bowel obstruction, with transition point as detailed above. Possible focal herniation or adherence of small bowel loops anteriorly at the site of the transition point. Trace pelvic ascites. 8 mm indeterminate hypodense structure in the right hepatic lobe. Abdomen X-Ray 06/11/22 06:22 Impression: NG tube in satisfactory position. Small bowel obstruction.
[2022-06-13 13:43] VITALS: BP 132/77; PULSE 67; RESP 18; TEMP 36.7; O2SAT 98
--- NOTE | 2022-06-13 13:46 | PC.NURSE ---
On 06/13/22, the student, [Lamine Ramírez], provided care and completed [facility] documentation on this patient. I have reviewed the student's documentation and agree with the findings.
[2022-06-13 20:00] VITALS: PULSE 60; RESP 20; O2SAT 98
[2022-06-13 20:30] VITALS: BP 121/72; PULSE 60; RESP 20; TEMP 36.9; O2SAT 98
[2022-06-14 05:00] VITALS: BP 125/67; PULSE 61; RESP 20; TEMP 37; O2SAT 96
[2022-06-14] MEDS: SODIUM CHLORIDE 0.9% IV 1,000 ML 125 ML IV CONT (06:30)
[2022-06-14 08:51] VITALS: PULSE 62; O2SAT 95
[2022-06-14] MEDS: ENOXAPARIN 40 MG/0.4 ML SYRINGE SUB-Q (09:11)
[2022-06-14 09:16] VITALS: BP 130/65; PULSE 64; RESP 18; TEMP 36.6; O2SAT 95
--- NOTE | 2022-06-14 12:42 | PM.DS ---
DS: Admitting Diagnosis Discharge Date 06/14/2022 Admitting Diagnosis Small-bowel obstruction, status post recurrent incisional hernia repair DS: Discharge Diagnosis Discharge Diagnosis (1) Small bowel obstruction: Code(s): K56.609 - Unspecified intestinal obstruction, unspecified as to partial versus complete obstruction Status: Acute (2) H/O abdominal surgery: Code(s): Z98.890 - Other specified postprocedural states Status: Acute DS: Summary Hospital Course Reason for hospitalization: Small-bowel obstruction Hospital Course: This is a 61-year-old man who presented to the emergency department 06/11/2022 with abdominal pain with nausea and vomiting. He had recently undergone robotic assisted laparoscopic recurrent incisional hernia repair with mesh on 05/19/2022. He had been doing well postoperatively until just couple days before presenting to the emergency department. CT in the emergency department showed a high-grade small bowel obstruction near the site of the recent hernia repair. He was admitted for further treatment and NG tube was placed. He then underwent laparoscopic release of small bowel obstruction on 06/11/[address] Mckeon. He had signs of a postoperative ileus and diet was slowly advanced as tolerated. His NG tube was removed on 06/12 and he was started on clear liquids. He did have an episode emesis on 06/13, therefore his diet was not advanced initially. He was then able to advance his diet on 06/14/2022. His bowels were moving and he denied any further nausea. He was up ambulating and pain was well controlled. He was then discharged on 06/14/2022. Status at Discharge Functional status at discharge: independent ambulation Overall status at discharge: patient is progressing back to baseline Time Spent with Patient Time attestation: Total time spent providing and/or coordinating discharge services: Time spent: Less than 30 minutes Exam Const: General: no acute distress Orientation/consciousness: patient oriented x3 Resp: Effort & Inspection: normal respiratory effort Auscultation: clear to auscultation bilaterally Cardio: Rate: regular rate Rhythm: regular rhythm Heart sounds: S1 normal heart sound present and S2 normal heart sound present GI: Inspection: non-distended and incision (Intact with glue) GI Palp: Yes Soft to palpation and Yes Tenderness to palpation present (GI) (Incisional) Auscultation: normal bowel sounds Discharge Plan Discharge Attending physician on discharge: Mary Alice Mckeon Discharging Clinician: Maximilian French Patient Disposition: Home, Self-Care Activity: no shower and no straining Diet: as tolerated Wound Care Instructions: incision open to air Patient Instructions: Antibiotic Form Stand Alone Forms: General Discharge Information Follow-up/Referrals: Mary Alice Mckeon MD [Physician] - 2 Weeks Discharge Medications: Continued multivitamin Tablet 1 tablet PO DAILY zinc acetate 50 mg (zinc) Capsule 100 mg PO DAILY coenzyme Q10 [CoQ-10] 100 mg Capsule 100 mg PO DAILY cholecalciferol (vitamin D3) [Vitamin D3] 125 mcg (5,000 unit) Tablet 125 mcg PO DAILY omega 7-[id number]-[id number]-fish oil [Fish Oil] 1,000 mg (120 mg-180 mg) Capsule 2 cap PO DAILY docusate sodium [Colace] 100 mg capsule 100 mg PO BID Qty: 30 0RF Date of admission: 06/11/22 09:56 Primary Care Provider: Paras Ordonez Admitting Provider: Maximilian French Attending physician on admission: Maximilian French Condition: Improved
== END 2022-06-14 15:35 | disposition home or self-care (01) | DRG 336 ==
LOC: ANHED 06-11 01:44 → ANH2MED 06-11 03:56
PROVIDERS: Surgery; Admitting Provider Surgery; Emergency Provider Emergency Medicine; PCP Family Medicine; Visit Provider Surgery
PROC: 0DTF4ZZ Resection of Right Large Intestine, Percutaneous Endoscopic Approach (ICD-10-PCS; CPT 44204; principal; 2022-06-11 15:00)
DX: K56.609 Unspecified intestinal obstruction, unspecified as to partial versus complete obstruction (principal); T81.32XA Disruption of internal operation (surgical) wound, not elsewhere classified, initial encounter; Z98.890 Other specified postprocedural states
CPT/HCPCS: 36415; 74177; 80053; 81001; 83690; 85025; 85027; 87086; 96361; 96374; 96375; 99285; G0378; J0330; J0690; J1100; J1170; J1650; J2250; J2270; J2405; J2704; J2710; J3010; J7030; J7120; Q9967

== ENCOUNTER 2024-02-29 09:26 | Outpatient (CLI) | payer BC, SELFPAY ==
[2024-02-29 19:19] LABS: Basophils Absolute Auto 0.1 K/mm3 (0.0-0.1); Basophils Percent Auto 0.8 % (0.2-1.2); Eosinophils Absolute Auto 0.1 K/mm3 (0-0.3); Eosinophils Percent Auto 1.7 % (0-4.4); Hematocrit 50.1 % (42.0-52.0); Hemoglobin 16.3 g/dL (14.0-18.0); Immature Granulocyte Absolute 0.02 K/mm3 (0.00-0.031); Immature Granulocyte Percent A 0.3 % (0-0.5); Lymphocytes Absolute Auto 2.61 K/mm3 (0.9-3.2); Lymphocytes Percent Auto 39.5 % (18.3-44.2); Mean Corpuscular HGB Conc 32.5 g/dl (32-36); Mean Corpuscular Volume 92.1 fl (80-100); Mean Platelet Volume 9.6 fl (7.4-10.4); Monocytes Absolute Auto 0.5 K/mm3 (0.1-0.6); Neutrophils Absolute Auto 3.4 K/mm3 (1.3-6.7); Neutrophils Percent Auto 50.7 % (45.5-73.1); Platelet Count Result 232 k/mm3 (150-375); Red Blood Count 5.44 M/mm3 (4.6-6.20); Red Cell Distribution Width 13.5 % (11.5-14.5); White Blood Count 6.6 K/mm3 (4.5-10.0)
[2024-02-29 19:20] LABS: Alanine Aminotransferase 24 U/L (6-50); Albumin Level 4.7 g/dL (3.5-5.1); Alkaline Phosphatase 68 U/L (38-126); Anion Gap 7 mmol/L (4-12); Aspartate Amino Transferase 51 U/L (17-59); Bilirubin,Total 1.7 mg/dL (0.2-1.3); Blood Urea Nitrogen 14 mg/dL (9-20); Calcium 9.9 mg/dL (8.4-10.2); Carbon Dioxide 29 mmol/L (22-30); Chloride 104 mmol/L (98-107); Cholesterol 243 mg/dL (0-200); Estimated Glomerular Filt Rate > 60; Glucose 89 mg/dL (65-110); HDL Direct 41 mg/dL; Potassium 4.8 mmol/L (3.4-5.0); Sodium 140 mmol/L (137-145); Triglycerides 277 mg/dL (<150)
[2024-02-29 19:31] LABS: LDL Cholesterol Direct 151 mg/dL
[2024-02-29 19:52] LABS: Prostate Specific Antigen 1.7 ng/mL (< OR = 4.0)
[2024-02-29 20:13] LABS: Vitamin D 25 Hydroxy 41.6 ng/mL
--- OUTSIDE RECORDS SUMMARY | 2024-03-07 05:27 | XMS_ITS | Encounter Summary ---
Author Organization [employer] Address [address] [place] [address] Care Team Providers Care Shape Carver Name Role Phone Amrit Giang MD Primary Care Provider [phone] Reason for Visit * Auth/Cert Specialty Diagnoses / Procedures Referred By Contzaid t Referred To Contact Gastroenterology Diagnoses Colon cancer screening Colon cancer screening [Z12.11] Procedures COLONOSCOPY [facility] [address] [place] [address] Referral ID Status Reason Start Date Expiration Date Visits Re quested Visits Authorized [id number] 1 1 Encounter Details Date Type Department Care Team (Latest Contact Info) Description 11/20/2016 11:21 AM CDT - 11/20/2016 4:22 PM CDT Hospital Encounter [facility] [address] [place] [address] Cristian Lara MD NO ADDRESS ON FILE Colon cancer screening Discharge Disposition: Home or Self Care Social History Tobacco Use Types Packs/Day Years Used Date Smoking Tobacco: Never Smokeless Tobacco: Never Alcohol Use Standard Drinks/Week Comments Yes 1.7 (1 standard drink = 0.6 oz p ure alcohol) Sex and Gender Information Value Date Recorded Sex Assigned at Not on file Gender Identity Not on file Sexual Orientation Not on file documented as of this encounter Last Filed Vital Signs Vital Sign Reading Time Taken Comments Blood Pressure 101/70 11/20/2016 2:48 PM CDT Pulse 56 11/20/2016 2:48 PM CDT Temperature 36.3 ??C (97.3 ??F) 11/20/2016 2:30 PM CD T Respiratory Rate 16 11/20/2016 2:48 PM CDT Oxygen Saturation 98% 11/20/2016 2:48 PM CDT Inhaled Oxygen Concentration - - Weight 119.3 kg (263 lb) 11/20/2016 1:03 PM CDT Height 182.9 cm (6') 11/20/2016 1:03 PM CDT Body Mass Index 35.67 11/20/2016 1:03 PM CDT documented in this encounter Discharge Instructions * Discharge Instructions* Lu Patterson RN - 11/20/2016 2:32 PM CDT If you should experience: Severe abdominal pain, chest pain, fever, chills, shortness of breath, inability to swallow, abnormal bleeding or any other concerns following your procedure. Call your physician or come to the Emergency Department. Please follow these instructions: 1. During your procedure you may have received sedation. You should rest at home for the remainder of the day. You should NOT drive or perform any activities that require a completely alert mind during this recovery period. Alcohol should NOT be used for at least 24 hours. 2. Following your colonoscopy you may expect your bowel habits to return to normal in 2-3 days. Once you are fully alert you may have a light meal and can progress to your usual diet, unless otherwise instructed by your physician. 3. This includes your current and historical medications prescribed by your physician (s). Continue your current medications and any newly prescribed during this visit. If you have questions, please call the physician who prescribed the medication. documented in this encounter Medications at Time of Discharge Medication Sig Dispensed Refills Start Date End Date Znyzk-1-QHN-EPA-Fish Oil 300-1,000 mg Capsule Take 2 Caps by mouth daily. 30 Cap 3 04/13/2012 UBIDECARENONE (COQ-10 ORAL) Take by mouth daily. MULTIVITAMIN W-MINERALS/LUTEIN (CENTRUM SILVER ORAL) Take by mouth daily. documented as of this encounter H&P Notes * Cristian Lara MD - 11/20/2016 1:31 PM CDT PRE PROCEDURE EVALUATION - Colonoscopy DATE: 11/20/2016 HPI: This is a 55 y.o. male patient scheduled for Colonoscopy for screen.,initial Patient Active Problem List Diagnosis Date Noted ??? Hyperlipidemia 04/13/2012 Overview Note: Last lipids: total 240, TG 318, HDL 41, and LDL 135 - '08 ??? Obese 04/13/2012 Past Medical History: Diagnosis Date ??? Acute cholecystitis 01/20/2013 ??? Cancer skin ??? Hearing loss, sensorineural right cocjlear implant 09/2011 ??? Hemorrhoids since college ??? Hyperlipidemia 04/13/2012 Last lipids: total 240, TG 318, HDL 41, and LDL 135 - '08 ??? IBS (irritable bowel syndrome) ??? 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 Obese 04/13/2012 ??? Obstructive sleep apnea (adult) (pediatric) uses a mouthpiece Past Surgical History: Procedure Laterality Date ??? HX EAR SURGERY Right 09/2011 coclear implant ??? HX MALIGNANT SKIN LESION EXCISION Right 2006 ear lobe ??? HX TONSILLECTOMY high school ??? NM LAP,CHOLECYSTECTOMY 01/21/2013 CHOLECYSTECTOMY LAPAROSCOPIC performed by Corina Medina MD at [facility] OR [facility] ??? NM REPAIR UMBILICAL ROBEL,5+Y/O,REDUC 01/21/2013 HERNIA UMBILICAL REPAIR performed by Corina Medina MD at [facility] OR [facility] Prescriptions Prior to Admission Medication Sig Dispense Refill Last Dose ??? Jvhpe-0-JZB-EPA-Fish Oil 300-1,000 mg Capsule Take 2 Caps by mouth daily. 30 Cap 3 Past Week atUnknown time ??? UBIDECARENONE (COQ-10 ORAL) Take by mouth daily. Past Week at Unknown time ??? MULTIVITAMIN W-MINERALS/LUTEIN (CENTRUM SILVER ORAL) Take by mouth daily. Past Week at Unknown time No Known Allergies Social History Substance Use Topics ??? Smoking status: Never Smoker ??? Smokeless tobacco: Never Used ??? Alcohol use 1.0 oz/week 2 Cans of beer per week Family History Problem Relation Age of Onset ??? Heart Disease Father [place] ??? High Cholesterol Father ??? High Cholesterol Mother ??? Other Mother djd, bilateral TKR ??? Healthy Sister ??? Cancer Maternal Grandmother ??? Dementia Maternal Grandmother ??? Respiratory Disease Maternal Grandfather ??? Other Paternal Grandfather ??? Breast Cancer Paternal Grandfather ??? Healthy Sister ??? Other Sister ??? Colon Cancer Neg Hx ??? Lung Cancer Neg Hx ??? Melanoma Neg Hx ??? Ovarian Cancer Neg Hx Head: Normal Lungs:Clear Airway: Normal Heart:Regular rythem Abdomen: Soft Neurologic: unremarkable ASA Classification: per anesthesia eval Informed Consent: The patient was informed of the indications for the procedure, the risks/benefits and the alternatives, and agreed to proceed. In particular, the patient was informed of the risk of perforation/(1:1000), medication side effect, infection, a missed lesion, or incomplete examination. In the case of dilatation, the patient was informed of the risk of perforation (1 to 5%). There was nothing onhistory or physical examination precluding the procedure. IMPRESSION & PLAN: Indications for procedure as noted in HPI. Will proceed with the above mentioned procedure(s) as scheduled. Cristian Lara MD documented in this encounter Procedure Notes * Cristian Lara MD - 11/21/2016 1:21 AM CDTAssociated Order(s): GI REPORT [place], [place] [address] Gastroenterology CSN: [id number] DATE OF SERVICE: 11/20/2016 COLONOSCOPY REPORT DATE OF SERVICE 11/20/2016 Darrel is a 55-year-old male patient of Dr. José Miguel Giang, who undergoes his initial screening colonoscopy. His bowel motions are regular. He denies passing blood. Family history is negative for colonic neoplasm. PROCEDURE The patient on the left side, sedation was provided by Anesthesia. The Olympus colonoscope was introduced in the rectum and advanced ultimately to the level of cecum. The patient had a quite redundant colon requiring us to turn him on to his back and ultimately I am able to advance such that the cecum was identified by the ileocecal valve and appendiceal orifice. Preparation was satisfactory. In the proximal ascending colon, there is a 5 mm sessile polyp removed by cold snare polypectomy, retrieved with biopsy forceps. Remainder of the ascending, transverse, descending, sigmoid, and rectum shows normal mucosa. A minute rectal polyp was removed with cold biopsy forceps. Retroflex view ofthe perianal area shows prominent hemorrhoids. Overall, the patient tolerated the procedure well. DIAGNOSES 1. Small right colon polyp. 2. Minute rectal polyp. 3. Hemorrhoids. RECOMMENDATION The patient reassured. JSF:MEDByron DID: [id number] Dictated by: Cristian Lara MD * Cristian Lara MD - 11/20/2016 2:30 PM CDTAssociated Order(s): GI REPORT [facility] Endoscopy Patient Name: Darrel Montenegro Procedure Date No Time: 11/20/2016 Date of : 1960 Admit Type: Outpatient Attending MD: Cristian Lara MD Procedure: Images Only-Procedure Report in [facility] Providers: Cristian Lara MD Referring MD: Amrit Giang MD Procedure: The Colonoscope was introduced through the anus and advanced to. Submitted Cristian Lara MD Number of Addenda: [phone] ; [place] [address] documented in this encounter OR Notes * Queenie-OP - Nguyen Thibodeaux RN - 11/20/2016 12:55 PM CDT Routine Pre-Anesthesia Protocol for GI Lab Procedures [facility] ORDERS ARE ENTERED ???PER PROTOCOL?? NURSING ORDERS: Monitoring: o Obtain and record vital signs. o Continuous vital signs (Non-invasive blood pressure, pulse oximetry and ECG) for all inpatients and all patients currently taking beta-blockers. o Place #20 gauge IV in non-dominant, non-operative or otherwise excluded upper extremity o Contact responsible anesthesiologist if recommending use of a #22 gauge IV o See medication section for local Anesthetic for use to initiate IV Laboratory Orders: Screening Protocol o Urine bHCG (serum if necessary) for females of menses, or age greater than 12 years. ?? Point of Care Testing: FOR PATIENTS WITH A HISTORY OF DIABETES, RECEIVING INSULIN, OR EXHIBITINGSIGNS AND SYMPTOMS OF HYPOGLYCEMIA. o POC glucose on initial assessment o POC glucose every 4 hours if NPO o POC glucose within 30 minutes of discharge or transfer to another unit (the time based intra-procedure POC check may be deferred during short procedures at the discretion of the provider) o POC for any patient exhibiting signs and symptoms of hypoglycemia o If POC Glucose results are critical, do not delay treatment. If appropriate, may confirm POC with: Nursing Only [id number] (this lab can be obtained at no cost to the patient when confirming a criticalhigh or critical low POC glucose Medication Orders o Local Anesthetic for use to initiate IV line Lidocaine 2% 0.3ml intradermal ONE TIME to numb are IV catheter insertion PRN IV Fluid: Adult patients (age 18 years or greater) o Lactated Ringers solution to infuse at 125 mL/hour, may discontinue upon discharge from procedurearea. o Patient specific modification as indicated: - If patient is found to have serum creatinine > 2 or history of renal failure, RN may change fluid to NS at 10ml/hr Contact provider to consider dextrose containing fluids for: o NPO patients who have received PO or injectable antihyperglycemic agents and glucose is less [id number] mg/dl o NPO patients who have NOT received PO or injectable antiHYPERglycemic agents and POC glucose is less than 70 mg/dL. o When receiving report on an inpatient, confirm if patient is receiving dextrose containing fluidsto prevent hypoglycemia. Communicate with the anesthesiologist and request glucose containing fluids be continued or added to intraoperative fluids. o Any time a patient???s enteral or parenteral nutrition is interrupted for longer than four hours and POC glucose or serum glucose is less than 100 mg/dL contact provider for dextrose containing fluids o Notify provider for any POC glucose or serum glucose less than 70 mg/dL RESCUE MEDICATION ORDERS - entered by the Pharmacist procurement forester o Meter Glucose less than 70, patient CONSCIOUS, able to swallow and allowed oral intake: ??? Give carbohydrates orally, choose one: - Give 15 gram food choice such as: Regular soda (6 oz), Apple juice (4 oz), Sugar, 1 tablespoon (4packets or 5 cubes), or 1 container regular Jello. - Reminder: avoid mixing sugar into a drink such as soda or juice, as this will constitute 30 gramsof carbs with the sugar and drink. ??? Recheck POC Glucose: - Recheck POC Glucose every 15 minutes and re-treat with 15 grams of carbohydrates until blood glucose is 70 mg/dL or greater. Once POC glucose result is 70 mg/dL or greater after hypoglycemic episode, POC glucose to be checked every 30 minutes for 3 consecutive occurrences with results of 70 mg/dL or greater, then resume previous POC Glucose check orders. o Meter Glucose less than 70, IV Access, patient UNCONSCIOUS, unable to swallow and/or NPO ??? Give dextrose IV: - Dextrose 50%, give 12.5grams IV push ONE TIME ??? Recheck POC Glucose: - Recheck POC Glucose and re-treat every 15 minutes with 12.5 g of Dextrose 50%. Once POC Glucose 70 mg/dL or greater after hypoglycemic episode, POC glucose to be checked every 30 minutes for 3 occurrences, then resume previous POC Glucose check orders o Meter Glucose less than 70, NO IV Accessible, patient UNCONSCIOUS, unable to swallow and/or NPO ??? Give glucagon IM - Glucagon (GLUCAGEN) 1 mg IM ONE TIME - Recheck POC Glucose: o Recheck blood glucose 15 minutes after administration of glucagon and re-treat accordingly. Afteradministration of glucagon is complete insert peripheral IV and notify physician. o Once POC Glucose result is 70 mg/dL or greater after hypoglycemic episode, POC glucose to be checked every 30 minutes for 3 consecutive occurrences with results 70 mg/dL or greater, then resume previous POC orders After Hypoglycemic Symptoms Subside and NOT NPO, Give a Snack o SNACK CHOICES: Should include 1 carb and 1 fat servin saltine crackers and 2 teaspoons peanutbutter; or 1 slice of bread and 2 teaspoons peanut butter; or 1 oz cheese and 6 saltine crackers; or 1 cup 2% milk and 6 saltine crackers. Initiating Department(s): 12/2008 OR; Anesthesia; Nursing; GI Lab Reviewed: 02/14/2012, 09/2014 Revised: 02/14/2012, 10/2014 Approved by: Medical Executive Committee, Nursing and Pharmacy and Therapeutics Date: 05/2016 documented in this encounter Plan of Treatment Not on file documented as of this encounter Procedures Procedure Name Priority Date/Time Associated Diagnosis Comments GI REPORT 11/21/2016 8:57 PM CDT PATHOLOGY Pathology 11/20/2016 2:23 PM CDT Colon cancer screening COLONOSCOPY 11/20/2016 1:46 PM CDT Colon cancer screening documented in this encounter Results * GI REPORT (11/21/2016 8:57 PM CDT) Narrative Procedure Note Cristian Lara MD - 11/21/2016 1:21 AM CDT [place], [place] [address] Gastroenterology CSN: [id number] DATE OF SERVICE: 11/20/2016 COLONOSCOPY REPORT DATE OF SERVICE 11/20/2016 Darrel is a 55-year-old male patient of Dr. José Miguel Giang, who undergoeshis initial screening colonoscopy. His bowel motions are regular. Hedenies passing blood. Family history is negative for colonic neoplasm. PROCEDURE The patient on the left side, sedation was provided by Anesthesia. TheOlympus colonoscope was introduced in the rectum and advanced ultimatelyto the level of cecum. The patient had a quite redundant colon requiringus to turn him on to his back and ultimately I am able to advance suchthat the cecum was identified by the ileocecal valve and appendicealorifice. Preparation was satisfactory. In the proximal ascending colon, there is a 5 mm sessile polyp removed bycold snare polypectomy, retrieved with biopsy forceps. Remainder of theascending, transverse, descending, sigmoid, and rectum shows normalmucosa. A minute rectal polyp was removed with cold biopsy forceps.Retroflex view of the perianal area shows prominent hemorrhoids. Overall,the patient tolerated the procedure well. DIAGNOSES 1. Small right colon polyp. 2. Minute rectal polyp. 3. Hemorrhoids. RECOMMENDATION The patient reassured. ANTHONYF:ROM DID:[id number] Dictated by: Cristian Lara MD Transcriptions Cristian Lara MD - 11/20/2016 2:30 PM CDT [facility] Endoscopy Patient Name: Darrel Montenegro Procedure Date No Time: 11/20/2016 Date of : 1960 Admit Type: Outpatient Attending MD: Cristian Lara MD Procedure: Images Only-Procedure Report in [facility] Providers: Cristian Lara MD Referring MD: Amrit Giang MD Procedure: The Colonoscope was introduced through the anus and advanced to. Submitted Cristian Lara MD Number of Addenda: [phone]; [place] [address] Cristian Lraa MD GI [facility] * PATHOLOGY (11/20/2016 2:23 PM CDT) CASE REPORT Surgical Pathology Report ? Case: [id number] ? Authorizing Provider: ??Cristian Lara MD ?Collected: ? 11/20/2016 02:23 PM ? Ordering Location: ? [facility] [address] ??Received: ?11/20/2016 03:31 PM ? Pathologist: ? Emiliana Woods MD ? Specimens: ?? A) - Colon, cecal polyp ? B) - Colon, rectal polyp ? 11/21/2016 3:58 PM CDT [facility] FINAL DIAGNOSIS Cecum, polyp, biopsy: - Tubular adenoma. Rectum, polyp, biopsy: - Minute fragment of colonic mucosa. - No evidence of polyp or submucosal lesion. 11/21/2016 3:58 PM T [facility] IMEN DESCRIPTION (1) Colon cecal polyp; (2) rectal polyp. 11/21/2016 3:58 PM CDT [facility] OPERATIVE PROCEDURE Colonoscopy. 11/21/2016 3:58 PM CDT [facility] CLINICAL DIAGNOSIS Colon cancer screening (Z12.11). 11/21/2016 3:58 PM CDT [facility] GROSS DESCRIPTION The specimens are received in two containers, each labeled Darrel Montenegro. Received in the first container labeled colon cecal polyp are two pieces of erickson tissue measuring 0.1 and 0.2 cm in greatest dimension. Both are submitted in cassette A1. Received in the second container labeled rectal polyp is a 0.2-cm piece of polypoid, erickson-pink tissue which is submitted in toto labeled B1. RUBI/ines LUCERO/sergey 11/21/2016 3:58 PM CDT [facility] MICROSCOPIC DESCRIPTION The cecal polyp is a tubular adenoma with no high-grade dysplasia. Sections of the rectal polyp reveal a minute fragment of colonic mucosa with no evidence of polyp or submucosal lesion. Multiple deeper levels were examined and show the same. 11/21/2016 3:58 PM CDT [facility] COMMENT Special stain and/or immunohistochemical results are interpreted with controls that demonstrate appropriate staining reactions. Note on use of immunocytochemistry reagents: This test was developed and its performance characteristic determined by [facility], Department of Laboratory Medicine. It has not been cleared or approved by the U.S. Food and Drug Administration. The FDA has determined that such clearance or approval is not necessary. The test is used for clinical purpose. It should not be regarded as investigational or for research. This laboratory is certified to perform high complexity testing. Case types starting with WS, WF, WB and WH are performed by [address], [address]. All other case types are performed by [facility] [address] [facility] [address]. 11/21/2016 3:58 PM CDT [facility] Tissue SPECIMEN FROM COLON / Unknown 11/20/2016 2:23 PM CDT 11/20/2016 3:31 PM CDT Tissue specimen (specimen) SPECIMEN FROM COLON / Unknown 11/20/2016 3:52 PM CDT 11/20/2016 4:22 PM CDT Cristian Lara MD PATHOLOGY/CYTOLOGY [facility] CLIA# [id number] [address] [facility] [address] documented in this encounter Visit Diagnoses Diagnosis Colon cancer screening Special screening for malignant neoplasms, colon documented in this encounter Administered Medications Inactive Administered Medications - up to 3 most recent administrations Medication Order MAR Action Action Date Dose Rate Site lactated Ringers solution IV, at 125 mL/hr, PRE-PROCEDURE CONTINUOUS, Starting on Nikky 11/20/16 at 1300, Until Nikky 11/20/16 at 1827, Routine, Pre-Procedure New Bag 11/20/2016 1:07 PM CDT 125 mL/hr documented in this encounter Active and Recently Administered Medications Times are shown in CDT. Continuous Medication Order 11/18/2016 11/19/2016 11/20/2016 lactated Ringers solution IV, at 125 mL/hr, PRE-PROCEDURE CONTINUOUS, Starting on Nikky 11/20/16 at 1300, Until Nikky 11/20/16 at 1827, Routine, Pre-Procedure 1307 (New Bag - Prov ider: Nguyen Thibodeaux RN)1426 (Fluid Volume - Provider: ABDULLAHI Momin) documented in this encounter Care Teams Shape Carver Relationship Specialty Start Date End Date Amrit Giang MD PCP - General Family Practice 04/13/12 documented as of this encounter
--- OUTSIDE RECORDS SUMMARY | 2024-03-07 05:27 | XMS_ITS | Clinical Summary ---
Author Organization [facility] e Address [address] [place] [address] Care Team Providers Care [employer] English Teacher Name Role Phone Amrit Giang MD Primary Care Provider [phone] Allergies No known active allergies Medications Medication Sig Dispensed Refills Start Date End Date Status UBIDECARENONE (COQ-10 ORAL) Take by mouth daily. Active MULTIVITAMIN W-MINERALS/LUTEIN (CENTRUM SILVER ORAL) Take by mouth daily. Active Urdiu-6-ZCM-EPA-Fish Oil 300-1,000 mg Capsule Take 2 Caps by mouth daily. 30 Cap 3 04/13/2012 Active Active Problems Problem Noted Date Diagnosed Date Hyperlipidemia 04/13/2012 Overview (01/20/2013): Last lipids: total 240, TG 318, HDL 41, and LDL 135 - '08 Obese 04/13/2012 Resolved Problems Problem Noted Date Diagnosed Date Resolved Date Acute cholecystitis 01/20/2013 10/25/19 15 Immunizations Name Administration Dates Next Due (ADACEL/BOOSTRIX)(10 YR UP) TDAP VACCINE, 0.5ML, IM 04/13/2012 Family History Medical History Relation Name Comments Heart Disease Father [place] High Cholesterol Father Respiratory Disease Maternal Grandfather Cancer Maternal Grandmother Dementia Maternal Grandmother High Cholesterol Mother Other Mother djd, bilateral TKR Breast Cancer Paternal Grandfather Other Paternal Grandfather Healthy Sister 1 Healthy Sister 2 Other Sister 2 Colon Cancer Neg Hx Lung Cancer Neg Hx Melanoma Neg Hx Ovarian Cancer Neg Hx Relation Name Status Comments Father Alive Maternal Grandfather Maternal Grandmother Mother Alive Paternal Grandfather Paternal Grandmother Sister 1 Alive Sister 2 Alive Social History Tobacco Use Types Packs/Day Years Used Date Smoking Tobacco: Never Smokeless Tobacco: Never Tobacco Cessation:Counseling Given: Yes Alcohol Use Standard Drinks/Week Comments Yes 1.7 (1 standard drink = 0.6 oz p ure alcohol) Sex and Gender Information Value Date Recorded Sex Assigned at Not on file Gender Identity Not on file Sexual Orientation Not on file Last Filed Vital Signs Vital Sign Reading Time Taken Comments Blood Pressure 136/80 09/10/2017 6:10 PM CDT Pulse 76 09/10/2017 5:48 PM CDT Temperature 36.9 ??C (98.5 ??F) 09/10/2017 5:48 PM CD T Respiratory Rate 18 09/10/2017 5:48 PM CDT Oxygen Saturation 96% 03/19/2017 6:55 PM METER MAINTENANCE PERSON Inhaled Oxygen Concentration - - Weight 119.2 kg (262 lb 12.8 oz) 09/10/2017 5:48 PM CDT Height 182.9 cm (6') 09/10/2017 5:48 PM CDT Body Mass Index 35.64 09/10/2017 5:48 PM CDT Plan of Treatment Health Maintenance Due Date Last Done Comments FIT-DNA Q 3 years 12/25/2004 FIT/FOBT Q 1 year 12/25/2004 Flex Sig/CT Colonography Q 5 years 12/25/2004 ZOSTER VACCINE (1 of 2) 12/25/2009 DTAP/TDAP/TD VACCINES (2 - T d or Tdap) 04/13/2022 04/13/2012 INFLUENZA VACCINE (#1) 2023 COLORECTAL SCREENING 11/20/2026 11/20/2016 Colorectal Cancer Screening 11/20/2026 RSV VACCINE (60+ or ) (1 - 1-dose 75+ series) 12/25/2034 PNEUMOCOCCAL VACCINE 0-64 YEARS Aged Out No longer eligible based on patient's age to complete this topic Advance Directives For more information, please contact: [phone] * Full Code (Latest Code Status on File) Date Activated Date Inactivated Comments 11/20/2016 12:56 PM 11/20/2016 6:22 PM * Full Code Date Activated Date Inactivated Comments 01/21/2013 3:29 PM 01/22/2013 1:29 PM * Full Code Date Activated Date Inactivated Comments 01/21/2013 2:01 PM 01/21/2013 3:29 PM * Full Code Date Activated Date Inactivated Comments 01/20/2013 4:08 PM 01/21/2013 2:01 PM Care Teams [employer] English Teacher Relationship Specialty Start Date End Date Amrit Giang MD PCP - General Family Practice 04/13/12
--- OUTSIDE RECORDS SUMMARY | 2024-03-07 05:27 | XMS_ITS | Encounter Summary ---
Author Organization [facility] Address [address] [place] [address] Care Team Providers Care Brake Adjuster Name Role Phone Amrit Giang MD Primary Care Provider [phone] Reason for Visit * Reason Onset Date Comments Results 01/21/2013 Encounter Details Date Type Department Care Team (Late st Contact Info) Description 01/21/2013 Telephone [facility] [address] [facility] [address] [place] [address] Amrit Giang MD [address] [facility] [address] [place] [address] Results Social History Tobacco Use Types Packs/Day Years Used Date Smoking Tobacco: Never Smokeless Tobacco: Never Alcohol Use Standard Drinks/Week Comments Yes 1.7 (1 standard drink = 0.6 oz p ure alcohol) Sex and Gender Information Value Date Recorded Sex Assigned at Not on file Gender Identity Not on file Sexual Orientation Not on file documented as of this encounter Miscellaneous Notes * Telephone Encounter - Cece Shankar - 01/21/2013 4:20 PM CST The patient was hospitalized at [facility]. R SCOOTER MECHANIC * Telephone Encounter - Cece Shankar - 01/21/2013 4:19 PM CST Message copied by CECE SHANKAR on ThuJan 21, 2013 4:19 PM ------ Message from: TANJA CALABRESE Created: ThuJan 19, 2013 10:15 AM Please call patient and notify him/her that their lab results are back and overall are reassuring. His electrolytes and kidney function were normal. His white blood cell count is normal. His urine is normal. His pancreas enzymes are normal. However, one of his inflammatory markers and his total bilirubin is elevated. Your total bilirubin is elevated. Bilirubin is the by-product that is produced from red blood cell breakdown, which is normal. Elevated levels can occur from excess production or impaired uptake of bilirubin. Some possible causes of this being elevated include an acute infection, gallstones, liver disease, hepatitis, or hereditary conditions such as Gilbert's disease or Carine Prieto syndrome. To determine the cause of your elevated bilirubin, I recommend proceeding with the CT scan as scheduled.. Thanks. HARMONY ------ R SCOOTER MECHANIC documented in this encounter Plan of Treatment Not on file documented as of this encounter Visit Diagnoses Not on filedocumented in this encounter Care Teams Brake Adjuster Relationship Specialty Start Date End Date Amrit Giang MD PCP - General Family Practice 04/13/12 documented as of this encounter
--- OUTSIDE RECORDS SUMMARY | 2024-03-07 05:27 | XMS_ITS | Clinical Summary ---
Author Organization [facility] Address [address] [place] [address]. [place], [place] [id number] [place] [address] Care Team Providers Care Boat Tester Name Role Phone Paras Ordonez DO Primary Care Provider [phone] Social History Tobacco Use Types Packs/Day Years Used Date Smoking Tobacco: Never Assessed Sex and Gender Information Value Date Recorded Sex Assigned at Not on file Legal Sex Male 9:31 AM SENIOR ASSET MANAGER Gender Identity Not on file Sexual Orientation Not on file Plan of Treatment Upcoming Encounters Date Type Department Care Team (Late st Contact Info) Description 03/07/2024 11:15 AM SENIOR ASSET MANAGER Appointment [facility] [address] [place] [address] Paras Ordonez DO [address] [facility] [address] [place] [address] Health Maintenance Due Date Last Done Comments Colorectal Cancer Screening Colonoscopy (10 Years) 1960 Annual Physical 12/25/1962 Hepatitis C 12/25/1977 DTaP, Tdap and Td Vaccines ( 1 - Tdap) 12/25/1978 Zoster Vaccines (1 of 2) 12/25/2009 COVID-19 Vaccine ( - 2023-2 5 season) 2023 Influenza Adult (#1) 2023 RSV Immunization or 60+ Years (1 - 1-dose 75+ series) 12/25/2034 Meningococcal Vaccine Aged Out No johnna audie eligible based on patient's age to complete this topic Pneumococcal Vaccine: Pediat rics (0 to 5 Years) and At-Risk Patients (6 to 64 Years) Aged Out No longer eligible b ased on patient's age to complete this topic RSV Immunizations Under 20 Months Aged Out No longer eligible based on patient's age to complete this topic Care Teams Boat Tester Relationship Specialty Start Date End Date Paras Ordonez DO [address] [facility] [address] [place], [place] [id number] PCP - General FAMILY PRACTICE 03/03/24
--- OUTSIDE RECORDS SUMMARY | 2024-03-07 05:27 | XMS_ITS | Encounter Summary ---
Author Organization [facility] Address [address] [place] [address] Care Team Providers Care Senior Ui Software Engineer Name Role Phone Amrit Giang MD Primary Care Provider [phone] Reason for Visit * Reason Comments Post-op Visit g b Encounter Details Date Type Department Care Team (Late st Contact Info) Description 02/17/2013 10:45 AM COLORED LIQUID PLASTIC APPLIER Office Visit [facility] [place] [address] [facility] [address] [place] [address] [place] [address] [facility] [address] [place] [address] Postop check (Primary Dx) Social History Tobacco Use Types Packs/Day Years [...] Sign Reading Time Taken Comments Blood Pressure 126/81 02/17/2013 10:54 AM COLORED LIQUID PLASTIC APPLIER Pulse 54 02/17/2013 10:54 AM COLORED LIQUID PLASTIC APPLIER Temperature - - Respiratory Rate - - Oxygen Saturation - - Inhaled Oxygen Concentration - - Weight 117.9 kg (260 lb) 02/17/2013 10:54 AM COLORED LIQUID PLASTIC APPLIER Height 182.9 cm (6') 02/17/2013 10:54 AM COLORED LIQUID PLASTIC APPLIER Body Mass Index 35.26 02/17/2013 10:54 AM COLORED LIQUID PLASTIC APPLIER documented in this encounter Progress Notes * Corina Medina MD - 02/17/2013 11:38 AM CST Patient: Darrel Montenegro / 52 y.o. / male : 1960 Darrel is here for their follow up visit after lap sarah for gangrenous cholecystitis. Doing well.No F/C. No N/V. No D/C. BP 126/81 Pulse 54 Ht 6' (1.829 m) Wt 260 lb (117.935 kg) BMI 35.25 kg/m2 General appearance: Well developed, well nourished male in no acute distress. Incisions healing well. No evidence of infection. Plan: RTO PRN Signed: Corina Medina MD 02/17/2013, 11:38 AM RED LIQUID PLASTIC APPLIER documented in this encounter Plan of Treatment Not on file documented as of this encounter Visit Diagnoses Diagnosis Postop check- Primary Follow-up examination, following unspecified surgery documented in this encounter Care Teams Senior Ui Software Engineer Relationship Specialty Start Date End Date Amrit Giang MD PCP - General Family Practice 04/13/12 documented as of this encounter
--- OUTSIDE RECORDS SUMMARY | 2024-03-07 05:27 | XMS_ITS | Encounter Summary ---
Author Organization [facility] Address [address] [place] [address] Care Team Providers Care International Sales Manager Name Role Phone Amrit Giang MD Primary Care Provider [phone] Reason for Visit * Auth/Cert Specialty Diagnoses / Procedures Referred By Contac t Referred To Contact Gastroenterology Diagnoses Colon cancer screening Colon cancer screening [Z12.11] Procedures COLONOSCOPY [facility] [address] [place] [address] Referral ID Status Reason Start Date Expiration Date Visits Re quested Visits Authorized [id number] 1 1 Encounter Details Date Type Department Care Team (Late st Contact Info) Description 11/20/2016 12:45 PM CDT - 11/20/2016 1:15 PM CDT Surgery [facility] [address] [employer] [address] [place] [address] Cristian Lara MD NO ADDRESS ON FILE COLONOSCOPY Surgery Details Date/Time Status Location OR Service Patient Class Case Class Case Type Trauma Case? 11/20/2016 12:[address] [facility] GI 06 Gastroenterology Outpatient Elective No Panel 1 Procedure LRB Anes Op Region Wound Class Comments COLONOSCOPY N/A General Anus AMRIT GIANG [[id number]] Surgeon Surgeon Role Service Panel Cristian Lara MD Primary Gastroenterology 1 documented in this encounter Social History Tobacco Use Types Packs/Day Years [...] Sign Reading Time Taken Comments Blood Pressure 165/85 11/20/2016 1:03 PM CDT Pulse 59 11/20/2016 1:03 PM CDT Temperature 36.3 ??C (97.3 ??F) 11/20/2016 1:03 PM CD T Respiratory Rate 18 11/20/2016 1:03 PM CDT Oxygen Saturation 99% 11/20/2016 1:03 PM CDT Inhaled Oxygen Concentration - - [...] Sig Dispensed Refills Start Date End Date Ttlue-9-ZHF-EPA-Fish Oil 300-1,000 mg Capsule Take 2 Caps [...] ??? 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 Obese 04/13/2012 ??? Obstructive sleep apnea (adult) (pediatric) uses a mouthpiece Past Surgical History: Procedure Laterality Date ??? HX EAR SURGERY Right 09/2011 coclear implant ??? HX MALIGNANT SKIN LESION EXCISION Right 2006 ear lobe ??? HX TONSILLECTOMY high school ??? [place] LAP,CHOLECYSTECTOMY 01/21/2013 CHOLECYSTECTOMY LAPAROSCOPIC performed by Corina Medina MD at [facility] OR [facility] ??? WA REPAIR UMBILICAL ROBEL,5+Y/O,REDUC 01/21/2013 HERNIA UMBILICAL REPAIR performed by Corina Medina MD at [facility] OR [facility] Prescriptions Prior to Admission Medication Sig Dispense Refill Last Dose ??? Xgavh-4-DCP-EPA-Fish Oil 300-1,000 mg Capsule Take 2 Caps [...] Age of Onset ??? Heart Disease Father [place] ??? High Cholesterol Father ??? High Cholesterol [...] 11/21/2016 1:21 AM CDTAssociated Order(s): GI REPORT [place], [place] [address] Gastroenterology CSN: [id number] DATE OF SERVICE: 11/20/2016 COLONOSCOPY REPORT DATE [...] polyp. 3. Hemorrhoids. RECOMMENDATION The patient reassured. JSF:MEDQ DID: [id number] Dictated by: Cristian Lara MD * Cristian Lara MD - 11/20/2016 2:30 PM CDTAssociated Order(s): GI REPORT [facility] Endoscopy Patient Name: Darrel Montenegro Procedure Date No Time: 11/20/2016 Date of : 1960 Admit Type: Outpatient Attending MD: Cristian Lara MD Procedure: Images Only-Procedure Report in [facility] Providers: Cristian Lara MD Referring MD: Amrit Giang MD Procedure: The Colonoscope was introduced through the anus and advanced to. Submitted Cristian Lara MD Number of Addenda: [address]; [place] [address] documented in this encounter OR Notes * Queenie-OP - Nguyen Thibodeaux RN - 11/20/2016 12:55 PM CDT Routine Pre-Anesthesia Protocol for GI Lab Procedures [facility] ORDERS ARE ENTERED ???PER PROTOCOL?? NURSING [...] appropriate, may confirm POC with: Nursing Only [id number] (this lab can be obtained at no [...] injectable antihyperglycemic agents and glucose is less [id number] mg/dl o NPO patients who have NOT [...] MEDICATION ORDERS - entered by the Pharmacist driver education instructor o Meter Glucose less than 70, patient [...] Lara MD - 11/21/2016 1:21 AM CDT [place], [place] [address] Gastroenterology CSN: [id number] DATE OF SERVICE: 11/20/2016 COLONOSCOPY REPORT DATE [...] polyp. 3. Hemorrhoids. RECOMMENDATION The patient reassured. JSF:MEDQ DID:[id number] Dictated by: Cristian Lara MD Transcriptions Cristian Lara MD - 11/20/2016 2:30 PM CDT [facility] Endoscopy Patient Name: Darrel Montenegro Procedure Date No Time: 11/20/2016 Date of : 1960 Admit Type: Outpatient Attending MD: Cristian Lara MD Procedure: Images Only-Procedure Report in [facility] Providers: Cristian Lara MD Referring MD: Amrit Giang MD Procedure: The Colonoscope was introduced through the anus and advanced to. Submitted Cristian Lara MD Number of Addenda: [address]; [place] [address] Cristian Lara MD GI PROCEDURE [facility] * PATHOLOGY (11/20/2016 2:23 PM CDT) CASE REPORT Surgical Pathology Report ? Case: [id number] ? Authorizing Provider: ??Cristian Lara MD ?Collected: ? 11/20/2016 02:23 PM ? Ordering Location: ? [facility] GI Lab [address] ??Received: ?11/20/2016 03:31 PM ? Pathologist: ? Emiliana Woods MD ? Specimens: ?? A) - Colon, cecal polyp ? B) - Colon, rectal polyp ? 11/21/2016 3:58 PM [facility] FINAL DIAGNOSIS Cecum, polyp, biopsy: - Tubular adenoma. Rectum, polyp, biopsy: - Minute fragment of colonic mucosa. - No evidence of polyp or submucosal lesion. 11/21/2016 3:58 PM [facility] IMEN DESCRIPTION (1) Colon cecal polyp; (2) rectal polyp. 11/21/2016 3:58 PM [facility] OPERATIVE PROCEDURE Colonoscopy. 11/21/2016 3:58 PM [facility] CLINICAL DIAGNOSIS Colon cancer screening (Z12.11). 11/21/2016 3:58 PM [facility] GROSS DESCRIPTION The specimens are received in [...] labeled B1. RUBI/ines LUCERO/sergey 11/21/2016 3:58 PM [facility] MICROSCOPIC DESCRIPTION The cecal polyp is a tubular adenoma with no high-grade dysplasia. Sections of the rectal polyp reveal a minute fragment of colonic mucosa with no evidence of polyp or submucosal lesion. Multiple deeper levels were examined and show the same. 11/21/2016 3:[address] [facility] COMMENT Special stain and/or immunohistochemical results are interpreted with controls that demonstrate appropriate staining reactions. Note on use of immunocytochemistry reagents: This test was developed and its performance characteristic determined by [facility], Department of Laboratory Medicine. It has [...] WF, WB and WH are performed by [address], [address]. All other case types are performed by [facility] [address] [facility], [address]. 11/21/2016 3:[address] [facility] Tissue SPECIMEN FROM COLON / Unknown 11/20/2016 2:23 PM CDT 11/20/2016 3:31 PM CDT Tissue specimen (specimen) SPECIMEN FROM COLON / Unknown 11/20/2016 3:52 PM CDT 11/20/2016 4:22 PM CDT Cristian Lara MD PATHOLOGY/CYTOLOGY O RDERABLES [facility] CLIA# [id number] [address] [facility] [place] [address] documented in this encounter Visit Diagnoses Diagnosis Colon cancer screening Special screening for malignant neoplasms, colon Colon cancer screening Special screening for malignant [...] Momin) documented in this encounter Care Teams International Sales Manager Relationship Specialty Start Date End Date Amrit Giang MD PCP - General Family Practice 04/13/12 documented as of this encounter
--- OUTSIDE RECORDS SUMMARY | 2024-03-07 05:27 | XMS_ITS | Encounter Summary ---
Author Organization [facility] Address [address] [place] [address] Care Team Providers Care Rehabilitation Services Director Name Role Phone Amrit Giang MD Primary Care Provider [phone] Encounter Details Date Type Department Care Team (Late st Contact Info) Description 06/19/2020 Orders Only [facility] [address] [facility] [address] [place] [address] Provider, Abstract NO ADDRESS ON FILE Social History Tobacco Use Types Packs/Day Years Used Date Smoking Tobacco: Never Smokeless Tobacco: Never Alcohol Use Standard Drinks/Week Comments Yes 1.7 (1 standard drink = 0.6 oz p ure alcohol) Sex and Gender Information Value Date Recorded Sex Assigned at Not on file Gender Identity Not on file Sexual Orientation Not on file documented as of this encounter Plan of Treatment Not on file documented as of this encounter Procedures Procedure Name Priority Date/Time Associated Diagnosis Comments EYE EXAM Routine 04/30/2020 documented in this encounter Results * EYE EXAM (04/30/2020) Abstract Provider OPHTH OTHER [facility] CLIA# [id number] [facility] [place] [address] [place] [address] documented in this encounter Visit Diagnoses Not on filedocumented in this encounter Care Teams Rehabilitation Services Director Relationship Specialty Start Date End Date Amrit Giang MD PCP - General Family Practice 04/13/12 documented as of this encounter
--- OUTSIDE RECORDS SUMMARY | 2024-03-07 05:27 | XMS_ITS | Encounter Summary ---
Author Organization [facility] Address [address] [place] [address] Care Team Providers Care Vocational Adviser Name Role Phone Amrit Giang MD Primary Care Provider [phone] Reason for Visit * Reason Comments Physical Encounter Details Date Type Department Care Team (Late st Contact Info) Description 10/24/2014 2:40 PM CDT Office Visit [facility] [address] [facility] [address] [place] [address] Amrit Giang MD [address] [facility] [address] [place] [address] Well adult exam (Primary Dx); Hyperlipidemia; Obese Social History Tobacco Use Types Packs/Day Years [...] Sign Reading Time Taken Comments Blood Pressure 130/80 10/24/2014 3:04 PM CDT Pulse 55 10/24/2014 3:04 PM CDT Temperature 36.6 ??C (97.9 ??F) 10/24/2014 3:04 PM CD T Respiratory Rate 18 10/24/2014 3:04 PM CDT Oxygen Saturation 98% 10/24/2014 3:04 PM CDT Inhaled Oxygen Concentration - - Weight 122.5 kg (270 lb) 10/24/2014 3:04 PM CDT Height 182.9 cm (6') 10/24/2014 3:04 PM CDT Body Mass Index 36.62 10/24/2014 3:04 PM CDT documented in this encounter Progress Notes * Amrit Giang MD - 10/25/2014 9:54 PM CDT 10/24/14 SUBJECTIVE: Darrel Montenegro is a 53 y.o. male presenting for his annual checkup. He is overweight and enjoys biking when he finds the time. He has general malaise and decreased stamina. He exercises but does not lose weight. He sweats a lot when eating spicy foods. Also when nervous. He drinks a lot of water and denies polyuria. No numbness of the feet or visual blurring. Thereis no family history of DM. No HTN or DM or CAD. He has hyperlipidemia and family history of same. He eats a lot of fruits and vegetables and has decreased fried foods. No fast foods. Cholesterol '04 was 195 with TG 156 and HDL37 and LDL 127. Most recent '08 was total 240, TG 318, HDL 41, and LDL 135. He takes [place] 3 Fish Oil supplement. There is family history of CAD (father over 50). He has intermittent blood in stools, on tissue. No weight loss. Onset was in college and occurs several times yearly. Stools tend to be loose. He has good response to Tucks pads and Cortisone cream. There is no family history of colon cancer. He has SN hearing loss, improved with right cochlear implant 18 months ago, still hearing loss at the left ear. He has skin cancer excised from right ear lobe area 6 years ago. He uses sun screen now. PSA '13 was 1.2. He denies nocturia. Patient Active Problem List Diagnosis Code ??? Hyperlipidemia 272.4 ??? Obese 278.00 Current Outpatient Prescriptions on File Prior to Visit Medication Sig Dispense Refill ??? Uvljo-7-PJQ-EPA-Fish Oil 300-1,000 mg Capsule Take 2 Caps by mouth daily. 30 Cap 3 ??? UBIDECARENONE (COQ-10 ORAL) Take by mouth daily. ??? MULTIVITAMIN W-MINERALS/LUTEIN (CENTRUM SILVER ORAL) Take by mouth daily. No current facility-administered medications on file prior to visit. No Known Allergies Past Medical History Diagnosis Date ??? Hyperlipidemia 04/13/2012 Last lipids: total 240, TG 318, HDL 41, and LDL 135 - '08 ??? Obese 04/13/2012 ??? Hemorrhoids since college ??? Hearing loss, sensorineural right cocjlear implant 09/2011 ??? IBS (irritable bowel syndrome) ??? 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 Acute cholecystitis 01/20/2013 Past Surgical History Procedure Laterality Date ??? Hx ear surgery Right 09/2011 coclear implant ??? Hx tonsillectomy high school ??? Hx malignant skin lesion excision Right 2006 ear lobe ??? Pr lap,cholecystectomy 01/21/2013 CHOLECYSTECTOMY LAPAROSCOPIC performed by Corina Medina MD at [facility] OR [facility] ??? Pr repair umbilical shana,5+y/o,reduc 01/21/2013 HERNIA UMBILICAL REPAIR performed by Corina Medina MD at [facility] OR [facility] Family History Problem Relation Age of Onset ??? Heart Disease Father [place] ??? High Cholesterol Father ??? High Cholesterol Mother ??? Other Mother djd, bilateral TKR ??? Healthy Sister ??? Cancer Maternal Grandmother ??? Respiratory Disease Maternal Grandfather ??? Other Paternal Grandfather ??? Breast Cancer Paternal Grandfather ??? Healthy Sister ??? Other Sister ??? Colon Cancer Neg Hx ??? Lung Cancer Neg Hx ??? Melanoma Neg Hx ??? Ovarian Cancer Neg Hx ??? Dementia Maternal Grandmother Parents live in [place]. Mom has DJD and had TKR last year. History Substance Use Topics ??? Smoking status: Never Smoker ??? Smokeless tobacco: Never Used ??? Alcohol Use: 1.0 oz/week 2 Cans of beer per week he is a few years ago and has no children. Enjoys bike riding, less recently due to work schedule. Constitutional: denies fevers, chills, sweats, anorexia, weight loss, he is obese, he has fatigue and malaise Ear, Nose, Mouth, Throat: denies nasal congestion, hoarse voice, swollen glands Respiratory: denies cough, wheeze, shortness of breath Cardiovascular: denies exertional chest pain/pressure, dyspnea on exertion, or edema Gastrointestinal: denies abdominal pain, dysphagia, acid reflux, has occasional blood in tissue after BM and hx of hemorrhoids. Genitourinary: denies dysuria, frequency, urgency Musculoskeletal: denies: myalgia, stiff joints, neck pain, back pain, muscle weakness Neurologic: denies history of stroke/TIA, seizures, head injury, or headache Endocrine: denies thyroid issues or diabetes Psychiatry: no depression or anxiety or psychosis Pertinent information contained in the HPI . OBJECTIVE: The patient appears well, alert, oriented x 3, in no distress. BP 130/80 mmHg Pulse 55 Temp(Src) 97.9 ??F (36.6 ??C) (Tympanic) Resp 18 Ht 6' (1.829 m) Wt 270 lb (122.471 kg) BMI 36.61 kg/m2 SpO2 98% Sinuses: nontender. TM's clear. PERRL, conjunctivae clear, fundi normal disc and vessels OU. Nose mild pale congestion with no mucus or polyps. Throat clear with no exudates. Neck supple. No adenopathy or thyromegaly. Lungs are clear, good air entry, no wheezes, rhonchi or rales. Heart S1 and S2 normal, no murmurs, regular rate and rhythm. Abdomen is obese, soft without tenderness, guarding, massor organomegaly. exam: no penile lesions or discharge, no testicular masses or tenderness, no hernias. Extremities show no edema, normal peripheral pulses. Neurological is normal without focal findings. Assessment/Plan: (V70.0) Well adult exam - Plan: LIPID PANEL COMPREHENSIVE METABOLIC PANEL PSA URINALYSIS WITH REFLEX CULTURE Reviewed diet and exercise. Discussed stress management and relaxation. He will call Dr. Lara's office to schedule colonoscopy ([phone]) Malaise and fatigue - Plan: COMPREHENSIVE METABOLIC PANEL TESTOSTERONE FREE AND TOTAL Resume regular exercise regimen (272.4) Hyperlipidemia - Plan: LIPID PANEL COMPREHENSIVE METABOLIC PANEL Reviewed low fat diet. Increase fruits and vegetables. Decrease fried foods, fast foods, and fatty foods Continue [place] 3 Fish Oil 2 grams daily (V76.44) Prostate cancer screening - Plan: PSA (278.00) Obese COMPREHENSIVE METABOLIC PANEL TESTOSTERONE FREE AND TOTAL Reviewed diet and exercise. Resume biking. Hyperhidrosis Avoid exacerbating foods Use ASA 81 mg And NSA 1/2 hour prior to eating it Appropriate medications prescribed. Appropriate patient instructions provided. Follow-up as I have indicated. Call if problems or questions. Medications and options explained to include common side effects. I have reviewed relevant labs and results. I have reviewed the patient's medical history in detail. I have updated the computerized patient record when indicated. documented in this encounter Plan of Treatment Scheduled Orders Name Type Priority Associated Diagnoses Orde r Schedule COMPREHENSIVE METABOLIC PANEL Lab Routine Well adult exam Hyperlipidemia Obese Ordered: 10/24/2014 LIPID PANEL Lab Routine Well adult exam Hyperlipidemia Ordered: 10/24/2014 PSA Lab Routine Well adult exam Ordered: 10/24/2014 URINALYSIS WITH REFLEX CULTURE Lab Routine Well adult exam Ordered: 10/24/2014 documented as of this encounter Visit Diagnoses Diagnosis Well adult exam- Primary Routine general medical examination at a health care facility Hyperlipidemia Other and unspecified hyperlipidemia Obese Obesity, unspecified documented in this encounter Care Teams Vocational Adviser Relationship Specialty Start Date End Date Amrit Giang MD PCP - General Family Practice 04/13/12 documented as of this encounter
--- OUTSIDE RECORDS SUMMARY | 2024-03-07 05:27 | XMS_ITS | Encounter Summary ---
Author Organization [facility] Address [address] [place] [address] Care Team Providers Care Lorry Weigher Name Role Phone Amrit Giang MD Primary Care Provider [phone] Reason for Visit * Reason Comments Flu symptoms symptom based Cough Nasal Congestion Hoarse Fever chills Encounter Details Date Type Department Care Team (Latest Contact Info) Description 03/19/2017 7:00 PM CONCRETE SMOOTHER Office Visit [facility] [address] [place] [address] [address] [place] [address] Amrit Giang MD [address] [facility] [address] [place] [address] Acute bronchitis, unspecified organism (Primary Dx); Hyperlipidemia, unspecified hyperlipidemia type; Obesity, unspecified classification, unspecified obesity type, unspecified whether serious comorbidity present; Prostate cancer screening Social History Tobacco Use Types Packs/Day Years [...] Sign Reading Time Taken Comments Blood Pressure 122/70 03/19/2017 6:55 PM CONCRETE SMOOTHER Pulse 54 03/19/2017 6:55 PM CONCRETE SMOOTHER Temperature 36.7 ??C (98.1 ??F) 03/19/2017 6:55 PM CS T Respiratory Rate 18 03/19/2017 6:55 PM CONCRETE SMOOTHER Oxygen Saturation 96% 03/19/2017 6:55 PM CONCRETE SMOOTHER Inhaled Oxygen Concentration - - Weight 121.1 kg (267 lb) 03/19/2017 6:55 PM CONCRETE SMOOTHER Height 182.9 cm (6') 03/19/2017 6:55 PM CONCRETE SMOOTHER Body Mass Index 36.21 03/19/2017 6:55 PM CONCRETE SMOOTHER documented in this encounter Progress Notes * Amrit Giang MD - 03/19/2017 7:34 PM CST 03/19/17 SUBJECTIVE: Darrel Montenegro is a 56 y.o. male presenting with fever 102 degrees onset 03/10/17. He had flu exposure with DEA's mother. He started Tamiflu right away. He had chills and sweats. Fever finally broke yesterday, but he still has loose cough and nasty thick green phlegm. No wheezes. No sore throat. onsmoker and no history of asthma. He is hoarse today. He has poor energy and aches all over. Sleep OK with Benadryl at HS. He is overweight and enjoys biking when [...] HDL 41, and LDL 135. He takes [place] 3 Fish Oil supplement. There is family [...] hearing loss, improved with right cochlear implant several years ago. He still has hearing loss at the left ear. . He has skin cancer excised from right ear lobe area 7 years ago. He uses sun screen now. PSA 2013 was 1.2. He denies nocturia. Patient Active Problem List Diagnosis Code ??? Hyperlipidemia E78.5 ??? Obese E66.9 Current Outpatient Prescriptions on File Prior to Visit Medication Sig Dispense Refill ??? Ufchx-9-DKM-EPA-Fish Oil 300-1,000 mg Capsule Take 2 Caps by mouth daily. 30 Cap 3 ??? UBIDECARENONE (COQ-10 ORAL) Take by mouth daily. ??? MULTIVITAMIN W-MINERALS/LUTEIN (CENTRUM SILVER ORAL) Take by mouth daily. ??? [] oseltamivir (TAMIFLU) 75 mg capsule Take 1 Capsule (75 mg) by mouth 2 times daily for5 days. 10 Capsule 0 No current facility-administered medications on file prior to visit. No Known Allergies Past Medical History: Diagnosis Date ??? Acute [...] lobe ??? HX TONSILLECTOMY high school ??? [place] COLONOSCOPY FLX DX W/COLLJ SPEC WHEN PFRMD N/A 11/20/2016 COLONOSCOPY performed by Cristian Lara MD at [facility] GI LAB ??? [place] LAP,CHOLECYSTECTOMY 01/21/2013 CHOLECYSTECTOMY LAPAROSCOPIC performed by Corina Medina MD at [facility] OR [facility] ??? [place] REPAIR UMBILICAL ROBEL,5+Y/O,REDUC 01/21/2013 HERNIA UMBILICAL REPAIR performed by Corina Medina MD at [facility] OR [facility] Family History Problem Relation Age of Onset ??? Heart Disease Father [place] ??? High Cholesterol Father ??? High Cholesterol [...] Neg Hx ??? Ovarian Cancer Neg Hx Parents live in [place]. Mom has DJD and had TKR last year. Social History Substance Use Topics ??? Smoking status: Never Smoker ??? Smokeless tobacco: Never Used ??? Alcohol use 1.0 oz/week 2 Cans of beer per week he is a few years ago and has no children. Enjoys bike riding, less recently due to work schedule. Constitutional: as noted Ear, Nose, Mouth, Throat: as noted Respiratory: as noted Cardiovascular: denies exertional chest pain/pressure, dyspnea on [...] information contained in the HPI . OBJECTIVE: BP 122/70 Pulse (!) 54 Temp 98.1 ??F (36.7 ??C) (Tympanic) Resp 18 Ht 6' (1.829 m) Wt 121.1 kg (267 lb) SpO2 96% BMI 36.21 kg/m?? General appearance: healthy appearing, alert, well nourished, and in no acute distress Sinuses: tender left cheek Eyes: conjunctivae clear. Lids appear normal. Fundi normal disc and vessels OU. Ears: normal TM's and external ear canals AU. No apparent lesions or masses. Nose: moderate congestion and erythema, no mucus or polyps, septum midline. Throat: moderate erythema posteriorly, no exudates, mucosa intact, tongue normal mucosa intact Neck: supple, nontender, no mass or lymphadenopathy; no JVD, thyromegaly, or bruits. Lungs: breath sounds equal, clear to auscultation bilaterally, normal effort, no dullness. Heart: regular rate and rhythm, S1, S2 normal, no murmur. Abdomen: soft, non-tender. Bowel sounds normal. No masses, no organomegaly. Extremities: no edema, intact pulses, calves supple. Skin: Skin color, texture, turgor normal. No rashes or lesions noted. Assessment/Plan: ICD-10-CM ICD-9-CM 1. Acute bronchitis, unspecified organism J20.9 466.0 Zithromax 250 mg Z-Rubens Benadryl 25 mg at HS Rest, fluids, and Tylenol, prn. Call if problems or persists. 2. Hyperlipidemia, unspecified hyperlipidemia type E78.5 272.4 COMPREHENSIVE METABOLIC PANEL LIPID PANEL Reviewed low fat diet 3. Obesity, unspecified classification, unspecified obesity type, unspecified whether serious comorbidity present E66.9 278.00 COMPREHENSIVE METABOLIC PANEL TSH TESTOSTERONE FREE AND TOTAL Normal BMI Range: 18 & older: > or = 18.5 and < 25 Body mass index is 36.21 kg/m??. Abnormal high BMI Reviewed diet and exercise. 4. Prostate cancer screening Z12.5 V76.44 PSA discussed recent concerns regarding PSA screening. He wishes to continue screening Schedule well exam soon. Pre-ordered labs Appropriate medications prescribed. Appropriate patient instructions provided. Follow-up as I have indicated. Call if problems or questions. Medications and options explained to include common side effects. I have reviewed relevant labs and results. I have reviewed the patient's medical history in detail. I have updated the computerized patient record when indicated. RETE SMOOTHER documented in this encounter Plan of Treatment Scheduled Orders Name Type Priority Associated Diagnoses Orde r Schedule COMPREHENSIVE METABOLIC PANEL Lab Routine Hyperlipidemia, unspecified hyperlipidemia type Obesity, Unspecified Classification, Unspecified Obesity Type, Unspecified Whether Serious Comorbidity Present Expected: 03/19/2017, Expires: 03/19/2018 LIPID PANEL Lab Routine Hyperlipidemia, unspecified hyperlipidemia type Expected: 03/19/2017, Expires: 03/19/2018 PSA Lab Routine Prostate cancer screening Expected: 03/19/2017, Expires: 03/19/2018 TSH Lab Routine Obesity, Unspecified Classification, Unspecified Obesity Type, Unspecified Whether Serious Comorbidity Present Expected: 03/19/2017, Expires: 03/19/2018 TESTOSTERONE FREE AND TOTAL Lab Routine Obesity, Unspecified Classification, Unspecified Obesity Type, Unspecified Whether Serious Comorbidity Present Expected: 03/19/2017, Expires: 03/19/2018 documented as of this encounter Visit Diagnoses Diagnosis Acute bronchitis, unspecified organism- Primary Hyperlipidemia, unspecified hyperlipidemia type Obesity, unspecified classification, unspecified obesity type, unspecified whether serious comorbidity present Prostate cancer screening Special screening for malignant neoplasm of prostate documented in this encounter Care Teams Lorry Weigher Relationship Specialty Start Date End Date Amrit Giang MD PCP - General Family Practice 04/13/12 documented as of this encounter
--- OUTSIDE RECORDS SUMMARY | 2024-03-07 05:27 | XMS_ITS | Encounter Summary ---
Author Organization [facility] Address [address] [place] [address] Care Team Providers Care Seasonal Recruiter Name Role Phone Amrit Giang MD Primary Care Provider [phone] Encounter Details Date Type Department Care Team (Late st Contact Info) Description 02/01/2013 Abstract [facility] [address] [facility] [address] [place] [address] Amrit Giang MD [address] [place] [place] [address] [address] [place] [address] Social History Tobacco Use Types Packs/Day Years [...] on filedocumented in this encounter Care Teams Seasonal Recruiter Relationship Specialty Start Date End Date Amrit Giang MD PCP - General Family Practice 04/13/12 documented as of this encounter
--- OUTSIDE RECORDS SUMMARY | 2024-03-07 05:27 | XMS_ITS | Encounter Summary ---
Author Organization [facility] Address [address] [place] [address] Care Team Providers Care Audio Video Tech Name Role Phone Amrit Giang MD Primary Care Provider [phone] Reason for Visit * Reason Comments Abdominal Pain Encounter Details Date Type Department Care Team (Latest Contact Info) Description 08/12/2017 3:40 PM CDT Office Visit [facility] [address] [facility] [address] [place] [address] Amrit Giang MD [address] [facility] [address] [place] [address] Abdominal wall strain, initial encounter (Primary Dx); Ventral hernia without obstruction or gangrene; Obesity, unspecified classification, unspecified obesity type, unspecified whether serious comorbidity present; Hyperlipidemia, unspecified hyperlipidemia type; Garden or yard of unspecified non-institutional (private) residence as the place of occurrence of the external cause Social History Tobacco Use Types Packs/Day Years [...] Sign Reading Time Taken Comments Blood Pressure 126/80 08/12/2017 4:33 PM CDT Pulse 50 08/12/2017 4:33 PM CDT Temperature 36.5 ??C (97.7 ??F) 08/12/2017 4:33 PM CD T Respiratory Rate 18 08/12/2017 4:33 PM CDT Oxygen Saturation - - Inhaled Oxygen Concentration - - Weight 121.6 kg (268 lb) 08/12/2017 4:33 PM CDT Height 182.9 cm (6') 08/12/2017 4:33 PM CDT Body Mass Index 36.35 08/12/2017 4:33 PM CDT documented in this encounter Progress Notes * Amrit Giang MD - 09/06/2017 6:32 PM CDT 08/12/17 SUBJECTIVE: Darrel Montenegro is a 56 y.o. male presenting with left lower abdominal pain. 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 Pain is associated with activity. There is no bruising or swelling or redness. No fever or chills and no nausea or vomiting. There is soreness at the umbilicus to the left, feels like he was punchedin the gut. No sharp pain. He is not bloated. Appetite is normal and his weight is stable. He has no history of PUD. He had lap cholecystectomy 01/2013. He is overweight and enjoys biking when [...] HDL 41, and LDL 135. He takes [place] 3 Fish Oil supplement. There is family [...] cancer excised from right ear lobe area 7-8 years ago. He uses sun screen now. PSA 2013 was 1.2. He denies nocturia. Labs ordered but not collected yet. Patient Active Problem List Diagnosis Code ??? Hyperlipidemia E78.5 ??? Obese E66.9 Current Outpatient Prescriptions on File Prior to Visit Medication Sig Dispense Refill ??? Cghdp-7-YKD-EPA-Fish Oil 300-1,000 mg Capsule Take 2 Caps [...] lobe ??? HX TONSILLECTOMY high school ??? [place] COLONOSCOPY FLX DX W/COLLJ SPEC WHEN PFRMD N/A 11/20/2016 COLONOSCOPY performed by Cristian Lara MD at [facility] ??? [place] LAP,CHOLECYSTECTOMY 01/21/2013 CHOLECYSTECTOMY LAPAROSCOPIC performed by Corina Medina MD at [facility] OR [facility] ??? [place] REPAIR UMBILICAL ROBEL,5+Y/O,REDUC 01/21/2013 HERNIA UMBILICAL REPAIR performed by Corina Medina MD at [facility] OR [facility] Family History Problem Relation Age of Onset ??? Heart Disease Father [place] ??? High Cholesterol Father ??? High Cholesterol [...] Ovarian Cancer Neg Hx Parents live in [place]. Mom has DJD and had TKR last year. Social History Substance Use Topics ??? Smoking status: Never Smoker ??? Smokeless tobacco: Never Used ??? Alcohol use 1.0 oz/week 2 Cans of beer per week he is a few years and has no children. He enjoys bike riding, less recently due to work schedule. OBJECTIVE: BP 126/80 (BP Location: Right arm, Patient Position (BP): Sitting, BP Cuff Size: Large Adult) Pulse (!) 50 Temp 97.7 ??F (36.5 ??C) (Temporal) Resp 18 Ht 6' (1.829 m) Wt 121.6 kg (268 lb) BMI 36.35 kg/m?? General appearance: healthy appearing, alert, well [...] S1, S2 normal, no murmur. Abdomen: soft, mild tenderness umbilical area with reducible hernia, tender 3 cm left and 2 cm inferior to umbilicus without mass or markings. Bowel sounds normal. Extremities: no edema, intact pulses, calves supple. Skin: Skin color, texture, turgor normal. No rashes or lesions noted. Musculoskeletal: low back mild diffuse tenderness upper levels, no spasm, no straight leg-raise pain, normal motion and curvature. Assessment/Plan: ICD-10-CM ICD-9-CM 1. Abdominal wall strain, initial encounter S39.011A 848.8 Observation Activity as tolerated Tylenol, prn 2. Ventral hernia without obstruction or gangrene K43.9 553.20 Observation eventually will need surgical repair Unpredictable if and when it will enlarge and become symptomatic 3. Obesity, unspecified classification, unspecified obesity type, unspecified whether serious comorbidity present E66.9 278.00 Normal BMI Range: 18 & older: > or = 18.5 and < 25 Body mass index is 36.35 kg/m??. Abnormal high BMI: Patient counseled on lifestyle modifications including weight loss and daily exercise. 4. Hyperlipidemia, unspecified hyperlipidemia type E78.5 272.4 Reviewed low fat diet. Increase fruits and vegetables. Decrease fried foods, fast foods, and fatty foods Schedule well exam soon. Pre-ordered labs Appropriate [...] as of this encounter Visit Diagnoses Diagnosis Abdominal wall strain, initial encounter- Primary Ventral hernia without obstruction or gangrene Ventral hernia, unspecified, without mention of obstruction or gangrene Obesity, unspecified classification, unspecified obesity type, unspecified whether serious comorbidity present Hyperlipidemia, unspecified hyperlipidemia type Garden or yard of unspecified non-institutional (private) residence as the place of occurrence of the external cause documented in this encounter Care Teams Audio Video Tech Relationship Specialty Start Date End Date Amrit Giang MD PCP - General Family Practice 04/13/12 documented as of this encounter
--- OUTSIDE RECORDS SUMMARY | 2024-03-07 05:27 | XMS_ITS | Encounter Summary ---
Author Organization [facility] Address [address] [place] [address] Care Team Providers Care Hydraulics Engineer Name Role Phone Amrit iGang MD Primary Care Provider [phone] Reason for Visit * Reason Onset Date Comments Flu symptoms symptom based 03/13/2017 Encounter Details Date Type Department Care Team (Late st Contact Info) Description 03/13/2017 Telephone [facility] [address] [place] [address] 100 [place] [address] Amrit Giang MD [address] [place] [address] [address] [place] [address] Flu symptoms symptom based Social History Tobacco Use Types Packs/Day Years [...] encounter Miscellaneous Notes * Telephone Encounter - Ivelisse Mckenzie - 03/13/2017 10:17 AM CST Pt notified. ATRIC NURSE * Telephone Encounter - Amrit Giang MD - 03/13/2017 10:07 AM PEDIATRIC NURSE Requested Prescriptions Pending Prescriptions Disp Refills ??? oseltamivir (TAMIFLU) 75 mg capsule 10 Capsule 0 Sig: Take 1 Capsule (75 mg) by mouth 2 times daily for 5 days. E-Rx'd. If requires PA or is too expensive, can change to Amantidine 100 mg bid x 10 days. ATRIC NURSE * Telephone Encounter - Nikki Daly - 03/13/2017 9:58 AM CST 102 fever. He was exposed to the flu mrs cedeño has a pos flu test , he has body aches coughing pt req tamaflu ATRIC NURSE documented in this encounter Plan of Treatment Not on file documented as of this encounter Visit Diagnoses Not on filedocumented in this encounter Care Teams Hydraulics Engineer Relationship Specialty Start Date End Date Amrit Giang MD PCP - General Family Practice 04/13/12 documented as of this encounter
--- OUTSIDE RECORDS SUMMARY | 2024-03-07 05:27 | XMS_ITS | Encounter Summary ---
Author Organization [facility] Address [address] [place] [address] Care Team Providers Care Account Support Rep Name Role Phone Amrit Giang MD Primary Care Provider [phone] Reason for Visit * Reason Onset Date Comments Results 09/15/2017 Encounter Details Date Type Department Care Team (Late st Contact Info) Description 09/15/2017 Telephone [facility] [address] [facility] 100 [place] [address] Amrit Giang MD [address] [facility] [address] [place] [address] Results Social History Tobacco Use [...] encounter Miscellaneous Notes * Telephone Encounter - Britney Issa - 09/15/2017 9:08 AM CDT Patient notified of results * Telephone Encounter - Britney Issa - 09/15/2017 9:08 AM CDT ----- Message from Amrit Giang MD sent at 09/11/2017 3:05 PM CDT ----- Screening tests negative. He will call for results. documented in this encounter Plan of Treatment Not on file documented as of this encounter Visit Diagnoses Not on filedocumented in this encounter Care Teams Account Support Rep Relationship Specialty Start Date End Date Amrit Giang MD PCP - General Family Practice 04/13/12 documented as of this encounter
--- OUTSIDE RECORDS SUMMARY | 2024-03-07 05:27 | XMS_ITS | Encounter Summary ---
Author Organization [facility] Address [address] [place] [address] Care Team Providers Care Capsule Machine Operator Name Role Phone Amrit Giang MD Primary Care Provider [phone] Reason for Visit * Reason Comments Abdominal Pain Physical Encounter Details Date Type Department Care Team (Latest Contact Info) Description 09/10/2017 5:40 PM CDT Office Visit [facility] [address] [facility] 100 [place] [address] Amrit Giang MD [address] [place] [address] [address] [place] [address] Well adult exam (Primary Dx); Obesity, unspecified classification, unspecified obesity type, unspecified whether serious comorbidity present; Hyperlipidemia, unspecified hyperlipidemia type Social History Tobacco Use Types Packs/Day Years [...] 18 09/10/2017 5:48 PM CDT Oxygen Saturation - - Inhaled Oxygen Concentration - - Weight 119.2 kg (262 lb 12.8 oz) 09/10/2017 5:48 PM CDT Height 182.9 cm (6') 09/10/2017 5:48 PM CDT Body Mass Index 35.64 09/10/2017 5:48 PM CDT documented in this encounter Progress Notes * Amrit Giang MD - 09/12/2017 12:24 PM CDT 09/10/17 SUBJECTIVE: Darrel Montenegro is a 56 y.o. male presenting for well exam. He was in traffic and anxious upon arrival. Now relaxed. Left lower abdominal Pain resolved after 2 days. Appetite is normal and his weight is stable. . He is overweight and enjoys biking. He exercises but does not lose weight. He sweats a lot when eating spicy foods. Also when nervous. He drinks a lot of water and denies polyuria. No numbness of thefeet or visual blurring. There is no family history of DM. No HTN or DM or CAD. He has hyperlipidemia and family history of same. He eats a lot of fruits and vegetables and has decreased fried foods. No fast foods. Cholesterol '04 was 195 with TG 156 and HDL37 and LDL 127. Most recent '08 was total 240, TG 318, HDL 41, and LDL 135. He takes [place] 3 Fish Oil supplement. There is family history of CAD (father over 50). He did not get labs drawn from 03/2017 yet. He has intermittent blood in stools, on [...] ago. He uses sun screen now. PSA 2012 was 1.2. He denies nocturia. Labs ordered but not collected yet. Patient Active Problem List Diagnosis Code ??? Hyperlipidemia E78.5 ??? Obese E66.9 Current Outpatient Prescriptions on File Prior to Visit Medication Sig Dispense Refill ??? Kngow-0-GYD-EPA-Fish Oil 300-1,000 mg Capsule Take 2 Caps [...] lobe ??? HX TONSILLECTOMY high school ??? NV COLONOSCOPY FLX DX W/COLLJ SPEC WHEN PFRMD N/A 11/20/2016 COLONOSCOPY performed by Cristian Lara MD at [facility] ??? NV LAP,CHOLECYSTECTOMY 01/21/2013 CHOLECYSTECTOMY LAPAROSCOPIC performed by Corina Medina MD at [facility] OR [facility] ??? NV REPAIR UMBILICAL ROBEL,5+Y/O,REDUC 01/21/2013 HERNIA UMBILICAL REPAIR performed by Corina Medina MD at [facility] OR [facility] Family History Problem Relation Age of Onset ??? Heart Disease Father [place] ??? High Cholesterol Father ??? High Cholesterol [...] Ovarian Cancer Neg Hx Parents live in [place]. Mom has DJD and had TKR last year. Social History Substance Use Topics ??? Smoking status: Never Smoker ??? Smokeless tobacco: Never Used ??? Alcohol use 1.0 oz/week 2 Cans of beer per week he is a few years and has no children. He enjoys bike riding, less recently due to work schedule. Constitutional: denies fevers, chills, sweats, fatigue, malaise, anorexia, weight loss Ear, Nose, Mouth, Throat: denies nasal congestion, hoarse voice, swollen glands Respiratory: denies cough, wheeze, shortness of breath Cardiovascular: denies exertional chest pain/pressure, dyspnea on exertion, or edema Gastrointestinal: denies abdominal pain, change in bowel habits, dysphagia, acid reflux Genitourinary: denies dysuria, frequency, urgency Musculoskeletal: denies: myalgia, stiff joints, neck pain, back pain, muscle weakness Neurologic: denies history of stroke/TIA, seizures, head injury, or headache Endocrine: denies thyroid issues or diabetes Psychiatry: no depression or anxiety or psychosis Pertinent information contained in the HPI OBJECTIVE: BP 136/80 Pulse 76 Temp 98.5 ??F (36.9 ??C) (Temporal) Resp 18 Ht 6' (1.829 m) Wt 119.2 kg (262 lb 12.8 oz) BMI 35.64 kg/m?? General appearance: healthy appearing, alert, well [...] S1, S2 normal, no murmur. Abdomen: soft, nontender. Bowel sounds normal. Genital: testes descended and no masses, no inguinal hernia or lymph nodes, no lesions on the penisand no urethral discharge Extremities: no edema, intact pulses, calves supple. Skin: Skin color, texture, turgor normal. No rashes or lesions noted. Musculoskeletal: no acute joint inflammation Assessment/Plan: ICD-10-CM ICD-9-CM 1. Well adult exam Z00.00 V70.0 GC/CHLAMYDIA, URINE HSV TYPE 1 AND 2 IGG ANTIBODY HIV DETECTION W/REFLX CONFIRMATION RPR Reviewed seat belts, smoke detectors, and accident prevention. Reviewed diet and exercise. Discussed stress management and relaxation. 2. Ventral hernia without obstruction or gangrene K43.9 553.20 Observation eventually will need surgical repair Unpredictable if and when it will enlarge and become symptomatic 3. Obesity, unspecified classification, unspecified obesity type, unspecified whether serious comorbidity present E66.9 278.00 Normal BMI Range: 18 & older: > or = 18.5 and < 25 Body mass index is 35.64 kg/m??. Abnormal high BMI: Patient counseled on lifestyle modifications including weight loss and daily exercise. 4. Hyperlipidemia, unspecified hyperlipidemia type E78.5 272.4 Reviewed low fat diet. Increase fruits and vegetables. Decrease fried foods, fast foods, and fatty foods Appropriate medications prescribed. Appropriate patient instructions provided. [...] Procedure Name Priority Date/Time Associated Diagnosis Comments HIV DETECTION W/REFLX CONFIRMATION Routine 09/10/2017 7:19 PM CDT Well adult exam GC/CHLAMYDIA, URINE Routine 09/10/2017 7 :19 PM CDT Well adult exam HSV TYPE 1 AND 2 IGG ANTIBODY Routine 09/10/2017 7:19 PM CDT Well adult exam RPR Routine 09/10/2017 7:19 PM CDT Well adult exam documented in this encounter Results * RPR (09/10/2017 7:19 PM CDT) RPR NON-REACTI VE Non-Reacti ve 09/11/2017 7:[address] [facility] Blood Venipuncture / Unknown 09/10/2017 7:19 PM CDT 09/10/2017 8:51 PM CDT Amrit Giang MD CHEMISTRY ORDERABLES Performing Organization Address [facility]/ZIP Co de Phone Number [facility] CLIA# [id number] [address] [place] [address] * HIV DETECTION W/REFLX CONFIRMATION (09/10/2017 7:19 PM CDT) Pathologist [facility] HIV-1 AND 2 ABS AND HIV-1 AG Non-reacti ve Non-reacti ve 09/10/2017 10:[address] [facility] Blood Venipuncture / Unknown 09/10/2017 7:19 PM CDT 09/10/2017 8:[address] [facility] - 09/10/2017 10:39 PM CDT Non-Reactive results does not rule out HIV infection. ??If acute HIV-1 infection is suspected, submit plasma specimen for HIV-1 RNA quantification test (HIVQU). Amrit Giang MD CHEMISTRY ORDERABLES [facility] CLIA# [id number] [address] [place] [address] * HSV TYPE 1 AND 2 IGG ANTIBODY (09/10/2017 7:19 PM CDT) Pathologist [facility] HSV TYPE 1 IGG Negative Negative 09/12/2017 10:40 AM CDT [facility] HSV TYPE 2 IGG Negative Negative 09/12/2017 10:40 AM CDT [facility] Comment: Test Performed by: [facility] [address] [place] [address] Blood Venipuncture / Unknown 09/10/2017 7:19 PM CDT 09/10/2017 8:51 PM CDT Amrit Giang MD CHEMISTRY ORDERABLES [facility] * GC/CHLAMYDIA, URINE (09/10/2017 7:19 PM CDT) CHLAMYDIA DNA AMPLIFICATION NOT DETECTED Not Detected 09/11/2017 4:35 AM CDT [facility] [employer] [facility] GC DNA AMPLIFICATION NOT DETECTED Not Detected 09/11/2017 4:35 AM CDT [facility] [employer] [facility] Urine URINE SPECIMEN / Unknown Collection / Unknown 09/10/2017 7:19 PM CDT 09/10/2017 8:51 PM CDT Narrative [facility] [employer] [facility] - 09/11/2017 4:35 AM CDT Results should not be used for the evaluation of suspected sexual abuse or for other medico-legal indications. The only legally accepted results are from culture. Results cannot be used to assess therapeutic success or failure since nucleic acids may persist following antimicrobial therapy. Amrit Giang MD URINE ORDERABLES COM Performing Organization Address [facility]/ZIP Co de Phone Number [facility] [employer] [facility]# [id number] [address] [place] [address] documented in this encounter Visit Diagnoses Diagnosis Well adult exam- Primary Routine general medical examination at a health care facility Obesity, unspecified classification, unspecified obesity type, unspecified whether serious comorbidity present Hyperlipidemia, unspecified hyperlipidemia type documented in this encounter Care Teams Capsule Machine Operator Relationship Specialty Start Date End Date Amrit Giang MD PCP - General Family Practice 04/13/12 documented as of this encounter
--- OUTSIDE RECORDS SUMMARY | 2024-03-07 05:27 | XMS_ITS | Encounter Summary ---
Author Organization [facility] Address [address] [place] [address] Care Team Providers Care Rad Tech Name Role Phone Amrit Giang MD Primary Care Provider [phone] Reason for Visit * Reason Onset Date Comments Results 10/17/2015 Encounter Details Date Type Department Care Team (Late st Contact Info) Description 10/17/2015 Telephone [facility] [address]A [address] [facility] 100 [place] [address] Amrit Giang MD [address] [place] [address] [address] [place] [address] Results Social History Tobacco Use [...] * Telephone Encounter - Ivelisse Mckenzie - 10/17/2015 2:56 PM CDT Left a detailed message for pt. * Telephone Encounter - Amrit Giang MD - 10/17/2015 2:21 PM CDT CMP WNL PSA 1.0 - WNL UA negative, no culture indicated. Lab Results Component Value Date/Time CHOLTOT 227* 10/15/2015 08:37 AM HDL 41 10/15/2015 08:37 AM LDLCALC 140* 10/15/2015 08:37 AM TRIGLYCERIDE 232* 10/15/2015 08:37 AM OK lipid profile. Increase fruits and vegetables. Decrease fried foods, fast foods, and fatty foods. Repeat 1 year. * Telephone Encounter - Charisse Ambrocio - 10/17/2015 12:15 PM CDT Patient is requesting lab results and he also asked that they be faxed to [phone]. documented in this encounter Plan of Treatment Not on file documented as of this encounter Visit Diagnoses Not on filedocumented in this encounter Care Teams Rad Tech Relationship Specialty Start Date End Date Amrit Giang MD PCP - General Family Practice 04/13/12 documented as of this encounter
--- OUTSIDE RECORDS SUMMARY | 2024-03-07 05:27 | XMS_ITS | Encounter Summary ---
Author Organization [facility] Address [address] [place] [address] Care Team Providers Care Allied Health Instructor Name Role Phone Amrit Giang MD Primary Care Provider [phone] Reason for Visit * Reason Onset Date Comments Results 11/24/2016 Encounter Details Date Type Department Care Team (Late st Contact Info) Description 11/24/2016 Telephone [facility] [address] [facility] [address] [place] [address] Cristian Lara MD NO ADDRESS ON FILE Results Social History Tobacco Use Types Packs/Day [...] encounter Miscellaneous Notes * Telephone Encounter - Dorie Kunz - 11/24/2016 8:32 AM CDT Patient informed labs/ pathology were OK. * Telephone Encounter - Dorie Kunz - 11/24/2016 8:31 AM CDT ----- Message from Cristian Lara MD sent at 11/21/2016 8:42 PM CDT ----- Call and tell lab/path ok documented in this encounter Plan of Treatment Not on file documented as of this encounter Visit Diagnoses Not on filedocumented in this encounter Care Teams Allied Health Instructor Relationship Specialty Start Date End Date Amrit Giang MD PCP - General Family Practice 04/13/12 documented as of this encounter
--- OUTSIDE RECORDS SUMMARY | 2024-03-07 05:27 | XMS_ITS | Encounter Summary ---
Author Organization [facility] Address [address] [facility] Attn: [place] [address] Care Team Providers Care Shredding Floor Equipment Operator Name Role Phone Amrit Giang MD Primary Care Provider [phone] Encounter Details Date Type Department Care Team (Late st Contact Info) Description 10/15/2015 Orders Only Initial Department [address] [facility] ATTN: [place] [address] Provider, Historical Social History Tobacco Use Types Packs/Day Years [...] Procedure Name Priority Date/Time Associated Diagnosis Comments TESTOSTERONE FREE AND TOTAL Routine 10/15/2015 8:37 AM CDT URINALYSIS WITH REFLEX CULTURE Routine 10/15/2015 8:37 AM CDT URINE CULTURE Routine 10/15/2015 8:37 AM CDT PSA Routine 10/15/2015 8:37 AM CDT LIPID PANEL Routine 10/15/2015 8:37 AM CDT COMPREHENSIVE METABOLIC PANEL Routine 10/15/2015 8:37 AM CDT documented in this encounter Results * TESTOSTERONE FREE AND TOTAL (10/15/2015 8:37 AM CDT) TESTOSTERONE 363 250 - 1100 ng/dL [facility] TESTOSTERONE FREE 62.1 35.0 - 155.0 pg/mL [facility] Comment: REPORT COMMENT: FASTING:YES Test Performed at: [facility] [address] ??[phone] JUNIE MUNOZ MD,FCAP 10/15/2015 8:37 AM CDT Amrit Giang MD CHEMISTRY ORDERABLES Performing Organization Address [facility] de Phone Number [employer] [facility] [address] [place] [address] * PSA (10/15/2015 8:37 AM CDT) PSA 1.0 < OR = 4.0 ng/mL [facility] Comment: This test was performed using the Siemens chemiluminescent method. Values obtained from different assay methods cannot be used interchangeably. PSA levels, regardless of value, should not be interpreted as absolute evidence of the presence or absence of disease. REPORT COMMENT: FASTING:YES Test Performed at: [facility] [place] [address] [place], [place] ??[phone] DARLENE CORONA DO,MPH 10/15/2015 8:37 AM CDT Amrit Giang MD CHEMISTRY ORDERABLES Performing Organization Address [facility] Co de Phone Number [facility] [address] [place] [address] * URINE CULTURE (10/15/2015 8:37 AM CDT) URINE CULTURE NO CULTURE INDICATED [facility] Comment: REPORT COMMENT: FASTING:YES Test Performed at: [facility] [place] [address] [place] ??[phone] DARLENE CORONA DO,MPH 10/15/2015 8:37 AM CDT Amrit Giang MD MICROBIOLOGY - GENER AL ORDERABLES Performing Organization Address [facility] Co de Phone Number [employer] [facility] [address] [place] [address] * (ABNORMAL) COMPREHENSIVE METABOLIC PANEL (10/15/2015 8:37 AM CDT) GLUCOSE 100(H) 65 - 99 mg/dL [facility] Comment:Fasting reference in terval BUN 17 7 - 25 mg/dL [facility]. [facility] CREATININE 1.30 0.70 - 1.33 mg/dL [facility] Comment: For patients >49 years of age, the reference limit for Creatinine is approximately 13% higher for people identified as -Italian. GFR 61 > OR = 60 mL/min/1 .73m2 [facility] GFR, 71 > OR = 60 mL/min/1 .73m2 [facility] BUN/CREAT RATIO NOT APPLICABLE 6 - 22 (calc) [facility] SODIUM 141 135 - 146 mmol/L [facility]. [facility] POTASSIUM 4.1 3.5 - 5.3 mmol/L [facility]. [facility] CHLORIDE 105 98 - 110 mmol/L [facility] . [facility] CO2 25 20 - 31 mmol/L [facility] . [facility] CALCIUM 9.8 8.6 - 10.3 mg/dL [facility]. [facility] TOTAL PROTEIN 7.1 6.1 - 8.1 g/dL [facility] ALBUMIN 4.5 3.6 - 5.1 g/dL [facility]. [facility] GLOBULIN 2.6 1.9 - 3.7 g/dL (calc) [facility] ALBUMIN/GLOBULIN RATIO 1.7 1.0 - 2.5 (calc) [facility] BILIRUBIN TOTAL 0.7 0.2 - 1.2 mg/dL [facility] ALKALINE PHOSPHATASE 63 40 - 115 U/L [facility] AST 32 10 - 35 U/L [facility] [employer] [facility] ALT 22 9 - 46 U/L [facility] Comment: Test Performed at: [facility] [place] [address] [place] ??[phone] DARLENE CORONA DO,MPH 10/15/2015 8:37 AM CDT Amrit Giang MD CHEMISTRY ORDERABLES Performing Organization Address City/State/[facility] Co de Phone Number [employer] [facility] [address] [place] [address] * (ABNORMAL) LIPID PANEL (10/15/2015 8:37 AM CDT) [facility] CHOLESTEROL 227(H) 125 - 200 mg/dL [facility] Comment: Test Performed at: [facility] [place] [address] [place], [place] ??[phone] DARLENE CORONA DO,MPH HDL 41 > OR = 40 mg/dL [facility] TRIGLYCERIDE 232(H) <150 mg/dL [facility] LDL CALCULATED 140(H) <130 mg/dL (calc) [facility] Comment: Desirable range <100 mg/dL for patients with CHD or diabetes and <70 mg/dL for diabetic patients with known heart disease. CHOL/HDL RATIO 5.5(H) < OR = 5.0 (calc) [facility] TOTAL NON-HDL CHOL(LDL+VLDL) 186(H) mg/dL (calc) [employer] [facility] Comment: Target for non-HDL cholesterol is 30 mg/dL higher than LDL cholesterol target. 10/15/2015 8:37 AM CDT Amrit Giang MD CHEMISTRY ORDERABLES Performing Organization Address [facility] Co de Phone Number [employer] [facility] [address] [place] [address] * URINALYSIS WITH REFLEX CULTURE (10/15/2015 8:37 AM CDT) COLOR UA YELLOW YELLOW [facility] CLARITY UA CLEAR CLEAR [facility] SPECIFIC GRAVITY UA 1.024 1.001 - 1.[address] [facility] PH UA 6.0 5.0 - 8.[address] [facility] GLUCOSE UA NEGATIVE NEGATIVE [facility] BILIRUBIN UA NEGATIVE NEGATIVE [facility] KETONES UA NEGATIVE NEGATIVE [facility] BLOOD UA NEGATIVE NEGATIVE [facility] PROTEIN UA NEGATIVE NEGATIVE [facility] NITRITE UA NEGATIVE NEGATIVE [facility] LEUKOCYTE ESTERASE UA NEGATIVE NEGATIVE [facility] WBC UA NONE SEEN < OR = 5 /HPF [facility] RBC UA 0-2 < OR = 2 /HPF [facility] EPITHELIAL CELLS, URINE NONE SEEN < OR = 5 /HPF [facility] BACTERIA UA NONE SEEN NONE SEEN /HPF [facility] HYALINE CAST NONE SEEN NONE SEEN /LPF [facility] Comment: REPORT COMMENT: FASTING:YES Test Performed at: [facility] [address] [place], [place] ??[phone] DARLENE COROAN DO,MPH 10/15/2015 8:37 AM CDT Amrit Giang MD URINE ORDERABLES [employer] [facility] [address] [place] [address] documented in this encounter Visit Diagnoses Not on filedocumented in this encounter Care Teams Shredding Floor Equipment Operator Relationship Specialty Start Date End Date Amrit Giang MD PCP - General Family Practice 04/13/12 documented as of this encounter
--- OUTSIDE RECORDS SUMMARY | 2024-03-07 05:27 | XMS_ITS | Encounter Summary ---
Author Organization [facility] Address [address] [place] [address] Care Team Providers Care Technology Training Associate Name Role Phone Amrit Giang MD Primary Care Provider [phone] Reason for Visit * Reason Onset Date Comments Results 10/24/2015 Encounter Details Date Type Department Care Team (Late st Contact Info) Description 10/24/2015 Telephone [facility] [address] [facility] [address] [place] [address] Amrit Giang MD [address] [facility] [address] [place] [address] Results Social History Tobacco Use [...] * Telephone Encounter - Ivelisse Mckenzie - 10/24/2015 3:04 PM CDT Patient was previously notified. * Telephone Encounter - Ivelisse Mckenzie - 10/24/2015 3:04 PM CDT ----- Message from Amrit Giang MD sent at 10/19/2015 6:18 PM CDT ----- UA negative, no culture indicated. CMP WNL PSA 1.0 WNL testosterone levels normal Lab Results Component Value Date/Time CHOLTOT 227# 10/15/2015 08:37 AM HDL 41 10/15/2015 08:37 AM LDLCALC 140# 10/15/2015 08:37 AM TRIGLYCERIDE 232# 10/15/2015 08:37 AM Improved LDL. Good job. Increase fruits and vegetables. Decrease fried foods, fast foods, and fattyfoods. documented in this encounter Plan of Treatment Not on file documented as of this encounter Visit Diagnoses Not on filedocumented in this encounter Care Teams Technology Training Associate Relationship Specialty Start Date End Date Amrit Giang MD PCP - General Family Practice 04/13/12 documented as of this encounter
--- OUTSIDE RECORDS SUMMARY | 2024-03-07 05:27 | XMS_ITS | Encounter Summary ---
Author Organization [facility] Address [address] [place] [address] Care Team Providers Care Liquid Flavor Compounder Name Role Phone Amrit Giang MD Primary Care Provider [phone] Reason for Visit * Reason Onset Date Comments Question 03/18/2017 Encounter Details Date Type Department Care Team (Late st Contact Info) Description 03/18/2017 Telephone [facility] [address] [facility] [address] [place] [address] Amrit Giang MD [address] [place] [address] [address] [place] [address] Question Social History Tobacco Use Types Packs/Day Years [...] encounter Miscellaneous Notes * Telephone Encounter - Niko Rojo RMA - 03/18/2017 5:06 PM CST appt scheduled for tomorrow. ISSION CLERK * Telephone Encounter - Amrit Giang MD - 03/18/2017 5:01 PM CST Appointment needed. ISSION CLERK * Telephone Encounter - Peggy Morgan - 03/18/2017 4:50 PM COMMISSION CLERK Pt called stating he is still not feeling well he did his course of Sal flu for a week and is not better he would like you to send something else ISSION CLERK documented in this encounter Plan of Treatment Not on file documented as of this encounter Visit Diagnoses Not on filedocumented in this encounter Care Teams Liquid Flavor Compounder Relationship Specialty Start Date End Date Amrit Giang MD PCP - General Family Practice 04/13/12 documented as of this encounter
--- OUTSIDE RECORDS SUMMARY | 2024-03-07 05:27 | XMS_ITS | Encounter Summary ---
Author Organization [facility] Address [address] [place] [address] Care Team Providers Care Family Service Worker Name Role Phone Amrit Giang MD Primary Care Provider [phone] Reason for Visit * Auth/Cert - Closed Specialty Diagnoses / Procedures Referred By Contac t Referred To Contact General Surgery Diagnoses choleycystitis Procedures CHOLECYSTECTOMY LAPAROSCOPIC [facility] [address] [place] [address] Referral ID Status Reason Start Date Expiration Date Visits Re quested Visits Authorized [id number] Closed 1 1 Encounter Details Date Type Department Care Team (Latest Contact Info) Description 01/20/2013 3:01 PM COMPRESSOR SERVICE TECHNICIAN - 01/22/2013 11:29 AM COMPRESSOR SERVICE TECHNICIAN Hospital Encounter [facility] [address] [place] [address] Amrit Giang MD [address] [place] [address] [address] [place] [address] Hyperlipidemia Discharge Disposition: Home or Self Care Social [...] Sign Reading Time Taken Comments Blood Pressure 115/70 01/22/2013 7:24 AM COMPRESSOR SERVICE TECHNICIAN Pulse 53 01/21/2013 7:40 PM COMPRESSOR SERVICE TECHNICIAN Temperature 36.6 ??C (97.9 ??F) 01/22/2013 7:24 AM CS T Respiratory Rate 16 01/22/2013 7:24 AM COMPRESSOR SERVICE TECHNICIAN Oxygen Saturation 94% 01/22/2013 7:24 AM COMPRESSOR SERVICE TECHNICIAN Inhaled Oxygen Concentration - - Weight 117.9 kg (260 lb) 01/20/2013 6:00 PM COMPRESSOR SERVICE TECHNICIAN Height 182.9 cm (6') 01/20/2013 6:00 PM COMPRESSOR SERVICE TECHNICIAN Body Mass Index 35.26 01/20/2013 6:00 PM COMPRESSOR SERVICE TECHNICIAN documented in this encounter Discharge Summaries * Amrit Giang MD - 01/22/2013 9:16 AM CST Physician Discharge Summary Patient: Andrew Montenegro / 52 y.o. / male : 1960 Admit date: 01/20/2013 Discharge date: 01/22/2013 Admitting Diagnoses: Diagnosis Code ??? Hyperlipidemia 272.4 ??? Obese 278.00 ??? Acute cholecystitis 575.0 Admission Condition: significantly deteriorating. Attending Physician: Amrit Giang MD Consults: general surgery. Emergency Department Diagnoses: Direct admission and not seen in ER \ Problem List: Patient Active Problem List Diagnosis Code ??? Hyperlipidemia 272.4 ??? Obese 278.00 ??? Acute cholecystitis 575.0 Treatments: IV hydration, antibiotics: piperacillin/tazobactam (ZOSYN) and surgery: lap cholecystectomy and umbilical hernia repair . Significant Diagnostic Studies: labs: WBC WNL, CRP 4, CMP with elevated bilirubin, amylase and lipase wnl and radiology: CT scan: ABDOMEN: DILATED AND INFLAMED GALLBLADDER WITH STONES . Indication for Admission: Abdominal pain and Gallbladder inflammation on CT scan Hospital Course: admitted, started IV Zosyn and given analgesics and anti- emetics as needed. Surgery consulted and performed lap cholecystectomy. Bilirubin improved and pain improved. DC'd home when stable with po Percocet for analgesic. Also found and repair incarcerated umbilical hernia. Discharge Exam: BP 115/70 Pulse 53 Temp(Src) 97.9 ??F (36.6 ??C) (Oral) Resp 16 Ht 6' (1.829 m) Wt 260 lb(117.935 kg) BMI 35.25 kg/m2 SpO2 94% General appearance: healthy appearing, alert, well nourished, and in no acute distress Eyes: conjunctivae clear. Lids appear normal. No icterus Neck: supple, nontender, no mass or lymphadenopathy; no JVD or bruits. Lungs: breath sounds equal, clear to auscultation bilaterally, normal effort. Heart: regular rate and rhythm, S1, S2 normal, no murmur. Abdomen: soft, mild diffuse tenderness, Bowel sounds normal. No masses Extremities: no edema, intact pulses, calves supple. Skin: Skin color, texture, turgor normal. Discharge Condition: stable. Discharging Physician: Amrit Giang MD Discharge Diagnoses: ??? Hyperlipidemia 272.4 ??? Obese 278.00 ??? Acute cholecystitis - removed. 575.0 ??? Umbilical hernia - repaired Disposition: home. MEDICATIONS Discharge medications and new prescriptions: Current Discharge Medication List START taking these medications oxyCODONE-acetaminophen 5-325 mg tablet Commonly known as: PERCOCET Take 1-2 Tabs by mouth every 4 hours as needed for Pain, Moderate (For Pain Scale 4-6). Provider: Denise Rowley Quantity: 50 Tab Refills: 0 CONTINUE taking these medications CENTRUM SILVER ORAL Take by mouth daily. Refills: 0 COQ-10 ORAL Take by mouth daily. Refills: 0 Insfu-0-IZJ-EPA-Fish Oil 300-1,000 mg Cap Take 2 Caps by mouth daily. Provider: Amrit Giang Quantity: 30 Cap Refills: 3 TUMS 500 ORAL Take by mouth. Refills: 0 Where to Get Your Medications Information on where to get these meds is not yet available. Ask your nurse or doctor. - oxyCODONE-acetaminophen 5-325 mg tablet Patient instructions: Activity: activity as tolerated. Diet: Regular Diet. Wound Care: Wound care per specialist. Follow-up with Amrit Giang MD in [address] Rowley in 1-2 weeks. . Signed: Amrit Giang MD 01/22/2013, 9:16 AM RESSOR SERVICE TECHNICIAN documented in this encounter Discharge Instructions * Discharge Instructions* Denise Rowley MD - 01/21/2013 1:34 PM COMPRESSOR SERVICE TECHNICIAN [place], [place] Discharge Instructions Laparoscopic Cholecystectomy ACTIVITY: ??? No strenuous activity such as sports or working out for 2 weeks. ??? Do not lift more than ten (10) pounds for 2 weeks. ??? Avoid excessive stooping, bending, or pulling for 2 weeks after surgery. ??? Climbing stairs is allowed. Walking is encouraged. ??? No driving while taking pain medicine, or until the surgeon releases you to do so. WOUND CARE: ??? OK to shower 24 hours after surgery. Leave steristrips intact (if present) until they fall off.Let warm soapy water wash over the incisions, then pat them dry. ??? Report ANY redness, drainage, or warmth at the incision site. Report any fever greater than 101.5 degrees F, or increased abdominal pain not controlled with pain medicine. ??? Ice can be applied to the incision sites as needed for pain, and is quite helpful in the first 24 - 72 hours after surgery. DIET: ??? Resume preoperative diet. Heart healthy diet advised. Avoid greasy and spicy foods for two weeks, as these may cause diarrhea. Small frequent meals seem to help as well if diarrhea is an issue. MEDICATIONS: ??? Refer to discharge medication list. Occasionally the pain medicine may cause constipation. Any OTC stool softener, such as colace, Senakot, or Milk of Magnesia can be used to help with constipation if necessary. FOLLOW-UP: ??? Denise Rowley MD, FACS in approximately 2 weeks. Call [phone] to schedule day and time of the appointment. ??? If you have any questions, please do not hesitate to call my office. [facility] [address] , [address] [place] [address] Denise Rowley MD, FACS [facility] Patient Instructions Cholecystectomy: What to Expect at Home Your Recovery After your surgery, it is normal to feel weak and tired for several days after you return home. Your belly may be swollen. If you had laparoscopic surgery, you may also have pain in your shoulder forabout 24 hours. You may have gas or need to burp a lot at first, and a few people get diarrhea. The diarrhea usually goes away in 2 to 4 weeks, but it may last longer. How quickly you recover depends on whether you had a laparoscopic or open surgery. For a laparoscopic surgery, most people can go back to work or their normal routine in 1 to 2 weeks, but it may take longer, depending on the type of work you do. For an open surgery, it will probably take 4 to 6 weeks before you get back to your normal routine. This care sheet gives you a general idea about how long it will take for you to recover. However, each person recovers at a different pace. Follow the steps below to get better as quickly as possible. How can you care for yourself at home? Activity Rest when you feel tired. Getting enough sleep will help you recover. Try to walk each day. Start out by walking a little more than you did the day before. Gradually increase the amount you walk. Walking boosts blood flow and helps prevent pneumonia and constipation. For about 2 to 4 weeks, avoid lifting anything that would make you strain. This may include heavy grocery bags and milk containers, a heavy briefcase or backpack, cat litter or dog food bags, a child, or a vacuum cleaner and presser. Avoid strenuous activities, such as biking, jogging, weightlifting, and aerobic exercise, until your doctor says it is okay. You may shower 24 to 48 hours after surgery, if your doctor okays it. Pat the cut (incision) dry. Do not take a bath for the first 2 weeks, or until your doctor tells you it is okay. You may drive when you are no longer taking pain medicine and can quickly move your foot from the gas pedal to the brake. You must also be able to sit comfortably for a long period of time, even if you do not plan to go far. You might get caught in traffic. For a laparoscopic surgery, most people can go back to work or their normal routine in 1 to 2 weeks, but it may take longer. For an open surgery, it will probably take 4 to 6 weeks before you get back to your normal routine. Diet Eat smaller meals more often instead of fewer larger meals. You can eat a normal diet, but avoid eating fatty foods for about 1 month. Fatty foods include hamburger, whole milk, cheese, and many snack foods. If your stomach is upset, try bland, low-fat foods like plain rice, broiled chicken, toast,and yogurt. Drink plenty of fluids (unless your doctor tells you not to). If you have diarrhea, try avoiding spicy foods, dairy products, fatty foods, and alcohol. You can also watch to see if specific foods cause it, and stop eating them. If the diarrhea continues for more than 2 weeks, talk to your doctor. You may notice that your bowel movements are not regular right after your surgery. This is common. Try to avoid constipation and straining with bowel movements. You may want to take a fiber supplement every day. If you have not had a bowel movement after a couple of days, ask your doctor about taking a mild laxative. Medicines Take pain medicines exactly as directed. If the doctor gave you a prescription medicine for pain, take it as prescribed. If you are not taking a prescription pain medicine, take an uqlw-kwj-yidemue medicine such as acetaminophen (Tylenol), ibuprofen (Advil, Motrin), or naproxen (Aleve). Read and follow all instructionson the label. Do not take two or more pain medicines at the same time unless the doctor told you to. Many pain medicines contain acetaminophen, which is Tylenol. Too much Tylenol can be harmful. If you think your pain medicine is making you sick to your stomach: Take your medicine after meals (unless your doctor tells you not to). Ask your doctor for a different pain medicine. If your doctor prescribed antibiotics, take them as directed. Do not stop taking them just because you feel better. You need to take the full course of antibiotics. Incision care If you have strips of tape on the incision, or cut, leave the tape on for a week or until it falls off. After 24 to 48 hours, wash the area daily with warm, soapy water, and pat it dry. You may have boy to hold the cut together. Keep them dry until your doctor takes them out. Thisis usually in 7 to 10 days. Keep the area clean and dry. You may cover it with a gauze bandage if it weeps or rubs against clothing. Change the bandage every day. Ice To reduce swelling and pain, put ice or a cold pack on your belly for 10 to 15 minutes at a time. Do this every 1 to 2 hours. Put a thin cloth between the ice and your skin. Follow-up care is a shannon part of your treatment and safety. Be sure to make and go to all appointments, and call your doctor if you are having problems. It?s also a good idea to know your test results and keep a list of the medicines you take. When should you call for help? Call 911 anytime you think you may need emergency care. For example, call if: You pass out (lose consciousness). You have severe trouble breathing. You have sudden chest pain and shortness of breath, or you cough up blood. Call your doctor now or seek immediate medical care if: You are sick to your stomach and cannot drink fluids. You have pain that does not get better when you take your pain medicine. You have signs of infection, such as: Increased pain, swelling, warmth, or redness. Red streaks leading from the incision. Pus draining from the incision. Swollen lymph nodes in your neck, armpits, or groin. A fever. Your urine turns dark brown or your stool is light-colored or queenie-colored. Your skin turns yellow. Bright red blood has soaked through a large bandage over your incision. You have signs of a blood clot, such as: Pain in your calf, back of knee, thigh, or groin. Redness and swelling in your leg or groin. You have trouble passing urine or stool, especially if you have mild pain or swelling in your lowerbelly. Watch closely for any changes in your health, and be sure to contact your doctor if: You had a laparoscopic surgery and your shoulder pain lasts more than 24 hours. You do not have a bowel movement after taking a laxative. Where can you learn more? Go to www.[employer].net Enter F357 in the search box to learn more about Cholecystectomy: What to Expect at Home . ?? 7334-2527 [employer]. Care instructions adapted under license by [employer] ([employer] disclaims any warranty or liability for your use of this information. This information is not intended to represent the ethical and anglican beliefs of [employer]. This care instruction is for use with your licensed healthcare professional. If you have questions about a medical condition or this instruction, always ask your healthcare professional. [facility] disclaims anywarranty or liability for your use of this information. RESSOR SERVICE TECHNICIAN documented in this encounter Medications at Time of Discharge Medication Sig Dispensed Refills Start Date End Date Vouqo-8-CRT-EPA-Fish Oil 300-1,000 mg Capsule Take 2 Caps by mouth daily. 30 Cap 3 04/13/2012 UBIDECARENONE (COQ-10 ORAL) Take by mouth daily. MULTIVITAMIN W-MINERALS/LUTEIN (CENTRUM SILVER ORAL) Take by mouth daily. documented as of this encounter Progress Notes * Amrit Giang MD - 01/22/2013 9:15 AM CST Admit Date: 01/20/2013 Date of Service: 01/22/2013 Subjective: He is awake and alert. No surgical complications. He feels better. POD #1 lap cholecystectomy with umbilical hernia repair. Jaundice resolved. No chest pain or acute shortness of breath. No fever or chills. Current Facility-Administered Medications Medication Dose Route Frequency Provider Last Rate Last Dose ??? sodium chloride 0.9% infusion IV Continuous Denise Rowley MD ??? acetaminophen (TYLENOL) tablet 325 mg 325 mg Oral q 4 hour PRN Denise Rowley MD ??? oxyCODONE-acetaminophen (PERCOCET) 5-325 mg per tablet 1 Tab 1 Tab Oral q 4 hour PRN Denise Rowley MD ??? oxyCODONE-acetaminophen (PERCOCET) 10-325 mg per tablet 1 Tab 1 Tab Oral q 4 hour PRN Denise Rowley MD ??? hydromorPHONE (DILAUDID) 1 mg/mL injection 0.3 mg 0.3 mg IV q 2 hour PRN Denise Rowley MD ??? hydromorPHONE (DILAUDID) 1 mg/mL injection 0.6 mg 0.6 mg IV q 2 hour PRN Denise Rowley MD ??? hydromorPHONE (DILAUDID) 1 mg/mL injection 1 mg 1 mg IV q 2 hour PRN Denise Rowley MD ??? nalOXone (NARCAN) 0.4 mg/mL injection 0.1 mg 0.1 mg IV See Admin Notes Denise Rowley MD ??? prochlorperazine (COMPAZINE) injection 5 mg 5 mg IV q 4 hour PRN Denise Rowley MD ??? ondansetron (ZOFRAN) 4 mg/2 mL injection 4 mg 4 mg IV q 6 hour PRN Denise Rowley MD ??? ondansetron (ZOFRAN) 4 mg/2 mL injection 4 mg 4 mg IV q 5 min PRN Denise Rowley MD ??? piperacillin-tazobactam (ZOSYN) IVPB 3.375 Gram 3.375 Gram IV q 6 hour Denise Rowley MD 3.375 Gram at 01/22/13 0820 ??? enoxaparin (LOVENOX) injection 40 mg 40 mg subCUT Daily Denise Rowley MD ??? [DISCONTINUED] fentaNYL PF (SUBLIMAZE) 50 mcg/mL injection 50 mcg 50 mcg IV Post-Proc q 3 min PRN Rodney Bah MD ??? [DISCONTINUED] ondansetron (ZOFRAN) 4 mg/2 mL injection 4 mg 4 mg IV Post- Proc q 5 min PRN Rodney Bah MD ??? [DISCONTINUED] hydromorPHONE (DILAUDID) 1 mg/mL injection 0.25 mg 0.25 mg IV Post-Proc q 5 min PRN Rodney Bah MD ??? [DISCONTINUED] ketorolac (TORADOL) injection 15 mg 15 mg IV q 6 hour PRN Denise Rowley MD ??? [DISCONTINUED] bupivacaine-EPINEPHrine (SENSORCAINE-EPINEPHRINE) 0.25 %- 1:200,000 injection Intra-Proc Once PRN Denise Rowley MD 50 mL at 01/21/13 1528 ??? [DISCONTINUED] sodium chloride 0.9 % irrigation irrigation Intra-Proc Once PRN Denise Rowley MD 3,000 mL at 01/21/13 1529 ??? HYDROcodone-acetaminophen (NORCO) 5-325 mg per tablet 1 Tab 1 Tab Oral q 4 hour PRN Amrit Giang MD ??? morphine 5 mg/mL injection 2 mg 2 mg IV q 2 hour PRN Amrit Giang MD ??? ondansetron (ZOFRAN ODT) tablet 4 mg 4 mg Oral q 6 hour PRN Amrit Giang MD ??? aluminum - magnesium - simethicone (MYLANTA) 200-200-20 mg/5 mL oral suspension 30 mL 30 mL Oral q 2 hour PRN Amrit Giang MD ??? acetaminophen (TYLENOL) tablet 650 mg 650 mg Oral q 4 hour PRN Amrit Giang MD ??? bisacodyl (DULCOLAX) rectal suppository 10 mg 10 mg Rectal Daily PRN Amrit Giang MD ??? magnesium hydroxide (MILK OF MAGNESIA) oral suspension 30 mL 30 mL Oral Daily PRN Amrit Giang MD ??? sodium chloride 0.9% infusion IV See Admin Notes Amrit Giang MD ??? sodium chloride 0.9 % flush injection 3 mL 3 mL IV q 8 hour Amrit Giang MD ??? sodium chloride 0.9 % flush injection 3 mL 3 mL IV See Admin Notes Amrit Giang MD ??? [DISCONTINUED] acetaminophen (TYLENOL) tablet 325 mg 325 mg Oral q 4 hour PRN Amrit Giang MD ??? [DISCONTINUED] nalOXone (NARCAN) 0.4 mg/mL injection 0.1 mg 0.1 mg IV See Admin Notes Amrit Giang MD ??? [DISCONTINUED] ondansetron (ZOFRAN) 4 mg/2 mL injection 4 mg 4 mg IV q 6 hour PRN Amrit Giang MD ??? [DISCONTINUED] sodium chloride 0.9% infusion IV Continuous HrDenise martinez MD 125 mL/hr at 01/21/13 0814 ??? [DISCONTINUED] piperacillin-tazobactam (ZOSYN) IVPB 3.375 Gram 3.375 Gram IV q 6 hour Denise Rowley MD 3.375 Gram at 01/21/13 1339 ??? [DISCONTINUED] hydromorPHONE (DILAUDID) 1 mg/mL injection 1 mg 1 mg IV q 2 hour PRN Denise Rowley MD ??? [DISCONTINUED] hydromorPHONE (DILAUDID) 1 mg/mL injection 0.5 mg 0.5 mg IV q 4 hour PRN Denise Rowley MD No Known Allergies Objective: Patient Vitals for the past 8 hrs: BP Temp Temp src Resp SpO2 01/22/13 0724 115/70 mmHg 97.9 ??F (36.6 ??C) Oral 16 94 % 01/22/13 0530 - - - - 98 % 01/22/13 0415 - - - - 95 % 01/22/13 0350 130/70 mmHg 98.3 ??F (36.8 ??C) Oral - 97 % Intake/Output Summary (Last 24 hours) at 01/22/13 0915 Last data filed at 01/22/13 0900 Gross per 24 hour Intake 3675 ml Output 3950 ml Net -275 ml OBJECTIVE: BP 115/70 Pulse 53 Temp(Src) 97.9 ??F (36.6 ??C) (Oral) Resp 16 Ht 6' (1.829 m) Wt 260 lb(117.935 kg) BMI 35.25 kg/m2 SpO2 94% General appearance: healthy appearing, alert, well nourished, and in no acute distress Eyes: conjunctivae clear. Lids appear normal. No icterus Neck: supple, nontender, no JVD or bruits. Lungs: breath sounds equal, clear to auscultation bilaterally, normal effort Heart: regular rate and rhythm, S1, S2 normal, no murmur. Abdomen: soft, mild diffuse tenderness, no rebound or guarding, Bowel sounds present. Extremities: no edema, intact pulses, calves supple. Skin: Skin color, texture, turgor normal. Assessment/Plan: Diagnosis ??? Acute cholecystitis - s/p lap Cholecystectomy, DAy #1 v ??? Hyperlipidemia - Last lipids: total 240, TG 318, HDL 41, and LDL 135 - '08 ??? Umbilical hernia - repaired ??? Hypoxia - resolved. O2 supplement, Consider sleep study See orders. Reviewed lab results, not limited to results noted above. Discussed with consultants karen. He agrees with present treatment plan. DC home. follow up in office per usual scheduleas this was surgical admission. RESSOR SERVICE TECHNICIAN * Denise Rowley MD - 01/22/2013 7:24 AM CST 01/22/2013 Progress Note, [place], [place] Impression: 1. Pt is POD# 1 s/p lap sarah and incarcerated umbilical hernia repair. Doing well. Bili trending down. Active Hospital Problems Diagnosis Date Noted ??? Acute cholecystitis 01/20/2013 ??? Hyperlipidemia 04/13/2012 Resolved Hospital Problems Diagnosis Date Noted Date Resolved No resolved problems to display. Plan: 1. OK to DC Home today, script for percocet on his chart. Subjective: Patient is resting, complains of soreness around umbilical incision Physical Exam: BP 130/70 Pulse 53 Temp(Src) 98.3 ??F (36.8 ??C) (Oral) Resp 19 Ht 6' (1.829 m) Wt 260 lb(117.935 kg) BMI 35.25 kg/m2 SpO2 98% General appearance: alert, in no distress Lungs: normal respiratory effort Heart: normal rate Abdomen: Soft, non-tender, non-distended. Dressings are clean, dry, intact. Lab Results Component Value Date/Time WBC 9.8 01/22/2013 4:15 AM WBC 5.5 04/13/2012 12:00 PM HEMOGLOBIN 13.8 01/22/2013 4:15 AM HEMATOCRIT 39.4* 01/22/2013 4:15 AM HEMATOCRIT 47.8 04/13/2012 12:00 PM PLATELETS 236 01/22/2013 4:15 AM MCV 87.9 01/22/2013 4:15 AM Lab Results Component Value Date/Time SODIUM 137 01/22/2013 4:15 AM POTASSIUM 4.2 01/22/2013 4:15 AM CHLORIDE 103 01/22/2013 4:15 AM CHLORIDE 103 04/13/2012 12:00 PM CO2 21* 01/22/2013 4:15 AM CALCIUM 9.3 01/22/2013 4:15 AM CALCIUM 10.0 04/13/2012 12:00 PM BUN 11 01/22/2013 4:15 AM CREATININE 1.03 01/22/2013 4:15 AM GLUCOSE 114* 01/22/2013 4:15 AM Intake/Output Summary (Last 24 hours) at 01/22/13 0725 Last data filed at 01/22/13 0700 Gross per 24 hour Intake 4025 ml Output 3750 ml Net 275 ml Denise Rowley MD, FACS RESSOR SERVICE TECHNICIAN * Amrit Giang MD - 01/21/2013 5:53 PM CST Admit Date: 01/20/2013 Date of Service: 01/21/2013 Subjective: He is sleepy post-anesthesia. S/P lap cholecystectomy with umbilical hernia repair. Jaundice resolved. No chest pain or acute shortness of breath. No fever or chills. desats with surgery and using O2PNP. Current Facility-Administered Medications Medication Dose Route Frequency Provider Last Rate Last Dose ??? fentaNYL PF (SUBLIMAZE) 50 mcg/mL injection 50 mcg 50 mcg IV Post-Proc q 3 min PRN Rodney Bah MD ??? ondansetron (ZOFRAN) 4 mg/2 mL injection 4 mg 4 mg IV Post-Proc q 5 min PRN Rodney Bah MD ??? hydromorPHONE (DILAUDID) 1 mg/mL injection 0.25 mg 0.25 mg IV Post-Proc q 5 min PRN Rodney Bah MD ??? sodium chloride 0.9% infusion IV Continuous Denise Rowley MD ??? acetaminophen (TYLENOL) tablet 325 mg 325 mg Oral q 4 hour PRN Denise Rowley MD ??? oxyCODONE-acetaminophen (PERCOCET) 5-325 mg per tablet 1 Tab 1 Tab Oral q 4 hour PRN Denise Rowley MD ??? oxyCODONE-acetaminophen (PERCOCET) 10-325 mg per tablet 1 Tab 1 Tab Oral q 4 hour PRN Denise Rowley MD ??? hydromorPHONE (DILAUDID) 1 mg/mL injection 0.3 mg 0.3 mg IV q 2 hour PRN Denise Rowley MD ??? hydromorPHONE (DILAUDID) 1 mg/mL injection 0.6 mg 0.6 mg IV q 2 hour PRN Denise Rowley MD ??? hydromorPHONE (DILAUDID) 1 mg/mL injection 1 mg 1 mg IV q 2 hour PRN Denise Rowley MD ??? ketorolac (TORADOL) injection 15 mg 15 mg IV q 6 hour PRN Denise Rowley MD ??? nalOXone (NARCAN) 0.4 mg/mL injection 0.1 mg 0.1 mg IV See Admin Notes Denise Rowley MD ??? prochlorperazine (COMPAZINE) injection 5 mg 5 mg IV q 4 hour PRN Denise Rowley MD ??? ondansetron (ZOFRAN) 4 mg/2 mL injection 4 mg 4 mg IV q 6 hour PRN Denise Rowley MD ??? ondansetron (ZOFRAN) 4 mg/2 mL injection 4 mg 4 mg IV q 5 min PRN Denise Rowley MD ??? [DISCONTINUED] bupivacaine-EPINEPHrine (SENSORCAINE-EPINEPHRINE) 0.25 %- 1:200,000 injection Intra-Proc Once PRN Denise Rowley MD 50 mL at 01/21/13 1528 ??? [DISCONTINUED] sodium chloride 0.9 % irrigation irrigation Intra-Proc Once PRN Denise Rowley MD 3,000 mL at 01/21/13 1529 ??? acetaminophen (TYLENOL) tablet 325 mg 325 mg Oral q 4 hour PRN Amrit Giang MD ??? HYDROcodone-acetaminophen (NORCO) 5-325 mg per tablet 1 Tab 1 Tab Oral q 4 hour PRN Amrit Giang MD ??? morphine 5 mg/mL injection 2 mg 2 mg IV q 2 hour PRN Amrit Giang MD ??? nalOXone (NARCAN) 0.4 mg/mL injection 0.1 mg 0.1 mg IV See Admin Notes Amrit Giang MD ??? ondansetron (ZOFRAN ODT) tablet 4 mg 4 mg Oral q 6 hour PRN Amrit Giang MD ??? ondansetron (ZOFRAN) 4 mg/2 mL injection 4 mg 4 mg IV q 6 hour PRN Amrit Giang MD ??? aluminum - magnesium - simethicone (MYLANTA) 200-200-20 mg/5 mL oral suspension 30 mL 30 mL Oral q 2 hour PRN Amrit Giang MD ??? acetaminophen (TYLENOL) tablet 650 mg 650 mg Oral q 4 hour PRN Amrit Giang MD ??? bisacodyl (DULCOLAX) rectal suppository 10 mg 10 mg Rectal Daily PRN Amrit Giang MD ??? magnesium hydroxide (MILK OF MAGNESIA) oral suspension 30 mL 30 mL Oral Daily PRN Amrit Giang MD ??? sodium chloride 0.9% infusion IV See Admin Notes Amrit Giang MD ??? sodium chloride 0.9 % flush injection 3 mL 3 mL IV q 8 hour Amrit Giang MD ??? sodium chloride 0.9 % flush injection 3 mL 3 mL IV See Admin Notes Amrit Giang MD ??? sodium chloride 0.9% infusion IV Continuous Denise Rowley MD 125 mL/hr at 01/21/13 0814 ??? piperacillin-tazobactam (ZOSYN) IVPB 3.375 Gram 3.375 Gram IV q 6 hour Denise Rowley MD 3.375 Gram at 01/21/13 1339 ??? hydromorPHONE (DILAUDID) 1 mg/mL injection 1 mg 1 mg IV q 2 hour PRN Denise Rowley MD ??? hydromorPHONE (DILAUDID) 1 mg/mL injection 0.5 mg 0.5 mg IV q 4 hour PRN Denise Rowley MD ??? [DISCONTINUED] dextrose 5% - sodium chloride 0.45% infusion IV Continuous Amrit Giang MD No Known Allergies Objective: Patient Vitals for the past 8 hrs: BP Temp Temp src Pulse Resp SpO2 01/21/13 1735 133/79 mmHg - - 59 18 95 % 01/21/13 1710 124/81 mmHg - - 66 20 95 % 01/21/13 1654 126/83 mmHg - - 66 16 - 01/21/13 1640 135/74 mmHg - - 64 16 - 01/21/13 1625 136/84 mmHg - - 59 18 - 01/21/13 1607 132/87 mmHg - - 60 18 94 % 01/21/13 1553 148/81 mmHg - - 61 20 97 % 01/21/13 1544 149/60 mmHg 98.3 ??F (36.8 ??C) Skin 68 24 96 % 01/21/13 1258 128/71 mmHg 97.8 ??F (36.6 ??C) Temporal 51 18 98 % 01/21/13 1200 122/71 mmHg 97.9 ??F (36.6 ??C) Oral 53 18 97 % Intake/Output Summary (Last 24 hours) at 01/21/13 1753 Last data filed at 01/21/13 1500 Gross per 24 hour Intake 2450 ml Output 951 ml Net 1499 ml OBJECTIVE: BP 133/79 Pulse 59 Temp(Src) 98.3 ??F (36.8 ??C) (Skin) Resp 18 Ht 6' (1.829 m) Wt 260 lb(117.935 kg) BMI 35.25 kg/m2 SpO2 95% General appearance: healthy appearing, sleepy, well nourished, and in no acute distress Eyes: conjunctivae clear. Lids appear normal. No icterus Neck: supple, nontender, no JVD or bruits. Lungs: breath sounds equal, clear to auscultation bilaterally, normal effort Heart: regular rate and rhythm, S1, S2 normal, no murmur. Abdomen: soft, diffusely tender, Bowel sounds present. Extremities: no edema, intact pulses, calves supple. Skin: Skin color, texture, turgor normal. Assessment/Plan: Diagnosis ??? Acute cholecystitis - s/p lap Ccy ??? Hyperlipidemia - Last lipids: total 240, TG 318, HDL 41, and LDL 135 - '08 ??? Umbilical hernia - repaired ??? Hypoxia - O2 supplement, Consider sleep study See orders. Reviewed lab results, not limited to results noted above. Discussed with consultants karen. He agrees with present treatment plan. Expect home in am. RESSOR SERVICE TECHNICIAN * Denise Rowley MD - 01/20/2013 5:35 PM CST Surgery consult requested this AM, but patient not admitted to [facility] until late this afternoon. Chart/CT reviewed on [facility]. Will need repeat labs, EKG, and GB us for further evaluation of biliary tree. (ordered) Start IVF and antibiotics (ordered) Bilirubin trending down, may have passed a common duct stone. willl see what his labs reveal in AM. He is tentatively on OR schedule for tomorrow afternoon if he has no evidence of choledocholithiasis. I have not personally seen or examined the patient today. I will see him in the AM after GB US is completed. If there are acute surgical issues, please contact our exchange to speak to the surgeon oncall. Denise Rowley MD, FACS RESSOR SERVICE TECHNICIAN documented in this encounter H&P Notes * Amrit Giang MD - 01/21/2013 4:32 AM CST Date of Service: 01/21/2013 Subjective: CC: abdominal pain, gallbladder problem HPI: Patient is a 52 y.o. male presents with 5 day history of RUQ abdominal pain that started with punched gut feeling and has progressed to intense crampy pain radiating to the back with nauseaand weakness. He has labs with increased bilirubin, normal amylase and lipase, and elevated CRP 4. CT abdomen shows acute swelling and distention of the gallbladder and possibly small stones. He feels feverish. No chills or rigors. He feels poorly. Admitted for surgical evaluation, started 8:30 am and late admission due to room availability. Bilirubin improved today. He had syncope with blood draw 2 days ago and also with haircut 2 days ago. He has cochlear implant and is concerned regarding cautery and meds. He eats a lot of fruits and vegetables and has decreased fried foods. No fast foods. He has hyperlipidemia. No CAD. No HTN or DM. Nonsmoker. No family history of anesthesia problems. No prior problems with anesthesia. Patient Active Problem List Diagnosis Date Noted ??? Acute cholecystitis 01/20/2013 ??? Hyperlipidemia 04/13/2012 Overview Note: Last lipids: total 240, TG 318, HDL 41, and LDL 135 - '08 ??? Obese 04/13/2012 Past Medical History Diagnosis Date ??? Hyperlipidemia [...] skin lesion excision Right 2006 ear lobe Prescriptions prior to admission Medication Sig Dispense Refill ??? Jzanp-7-WKS-EPA-Fish Oil 300-1,000 mg Capsule Take 2 Caps by mouth daily. 30 Cap 3 ??? CALCIUM CARBONATE (TUMS 500 ORAL) Take by mouth. ??? UBIDECARENONE (COQ-10 ORAL) Take by mouth daily. ??? MULTIVITAMIN W-MINERALS/LUTEIN (CENTRUM SILVER ORAL) Take by mouth daily. No prescriptions prior to admission No Known Allergies History Substance Use Topics ??? Smoking status: Never Smoker ??? Smokeless tobacco: Never Used ??? Alcohol Use: 1.0 oz/week 2 Cans of beer per week Family History Problem Relation Age of Onset ??? Heart Disease Father ME ??? High Cholesterol Father ??? High Cholesterol [...] Cancer Neg Hx ??? Dementia Maternal Grandmother Review of Systems Constitutional: has fatigue, malaise, anorexia Ear, Nose, Mouth, Throat: denies nasal congestion, hoarse voice, swollen glands Respiratory: denies cough, wheeze, shortness of breath Cardiovascular: denies exertional chest pain/pressure, dyspnea on exertion, or edema Gastrointestinal: as noted Genitourinary: denies dysuria, frequency, urgency Musculoskeletal: denies: myalgia, stiff joints, neck pain, back pain, muscle weakness Neurologic: denies history of stroke/TIA, seizures, head injury, or headache Endocrine: denies thyroid issues or diabetes Pertinent information contained in the HPI Objective: BP 118/74 Pulse 55 Temp(Src) 98 ??F (36.7 ??C) (Oral) Resp 16 Ht 6' (1.829 m) Wt 260 lb (117.935 kg) BMI 35.25 kg/m2 SpO2 97% General appearance: healthy appearing, alert, well nourished, and in no acute distress Sinuses: nontender Eyes: conjunctivae clear. Lids appear normal. Fundi normal disc and vessels OU. Ears: normal TM's and external ear canals AU. No apparent lesions or masses. Nose: Nares normal. Septum midline. Mucosa normal. No lesions or polyps. Throat: mucosa intact, tongue normal, no erythema or exudates. Neck: supple, nontender, no mass or lymphadenopathy; no JVD, thyromegaly, or bruits. Lungs: breath sounds equal, clear to auscultation bilaterally, normal effort, no dullness. Heart: regular rate and rhythm, S1, S2 normal, no murmur. Abdomen: soft, moderate tenderness RUQ, no rebound or guarding, Bowel sounds normal. No masses Extremities: no edema, intact pulses, calves supple. Skin: Skin color, texture, turgor normal. No rashes or lesions noted, no significant jaundice Neuro: Alert. Light touch intact throughout. Motor 5/5 with normal mass and tone. Normal deep tendon reflexes. Assessment/Plan: Patient Active Problem List Diagnosis Date Noted ??? Acute cholecystitis 01/20/2013 ??? Hyperlipidemia 04/13/2012 Overview Note: Last lipids: total 240, TG 318, HDL 41, and LDL 135 - '08 Admit, keep NPO, surgical consult. Analgesic and antiemetics as needed. Repeat CMP, CBC, and amylase. Start Zosyn IV. IVF. RESSOR SERVICE TECHNICIAN documented in this encounter Consult Notes * Denise Rowley MD - 01/21/2013 11:07 AM CSTAssociated Order(s): IP CONSULT TO GENERAL SURGERY [place], [place] General Surgery Consult Patient: Andrew Montenegro / 52 y.o. / male : 1960 Consult requested by Amrit Granados MD Primary Care Physician: Amrit Giang MD Date of admission: 01/20/2013 Date of Service: 01/21/2013 Assessment: Active Hospital Problems Diagnosis Date Noted ??? Acute cholecystitis 01/20/2013 ??? Hyperlipidemia 04/13/2012 Resolved Hospital Problems Diagnosis Date Noted Date Resolved No resolved problems to display. Acute cholecystitis Plan: Laparoscopic cholecystectomy, possible open. All risks including (but not limited to) bleeding, infection, bile duct injury, intestinal injury, retained stones, bile leak, pneumonia, post cholecystectomy diarrhea, and the potential that removing the gallbladder may not relieve all of their symptoms, etc were explained to the patient, and the patient freely consents. More than 20 minutes were spent in the care of this patient today. All radiologic studies and labs were reviewed by me personally. Chief Complaint: abdominal pain History of Present Illness: Andrew Montenegro is a 52 y.o. year-old male who presents with a 6 day history of epigastric/RUQ pain.No f/c. Some nausea. No d/c. No acholic stools or dark urine. CT consistent with acute cholecystitis. Labs look OK other than total bilirubin 1.7. Pain 3/10, dull, constant. Pain started after eatinga large meal last Thursday. Past Medical Hx: Past Medical History Diagnosis Date ??? Hyperlipidemia 04/13/2012 Last lipids: total 240, TG 318, HDL 41, and LDL 135 - '08 ??? Obese 04/13/2012 ??? Hemorrhoids since college ??? Hearing loss, sensorineural right cocjlear implant 09/2011 ??? IBS (irritable bowel syndrome) ??? 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 Acute cholecystitis 01/20/2013 Past Surgical Hx: Past Surgical History Procedure Laterality Date ??? Hx ear surgery Right 09/2011 coclear implant ??? Hx tonsillectomy high school ??? Hx malignant skin lesion excision Right 2006 ear lobe Home Medications: Prescriptions prior to admission Medication Sig Dispense Refill ??? Ltjgd-3-QJZ-EPA-Fish Oil 300-1,000 mg Capsule Take 2 Caps by mouth daily. 30 Cap 3 ??? CALCIUM CARBONATE (TUMS 500 ORAL) Take by mouth. ??? UBIDECARENONE (COQ-10 ORAL) Take by mouth daily. ??? MULTIVITAMIN W-MINERALS/LUTEIN (CENTRUM SILVER ORAL) Take by mouth daily. No prescriptions prior to admission Hospital Medications: Current Facility-Administered Medications Medication Dose Route Frequency Provider Last Rate Last Dose ??? acetaminophen (TYLENOL) tablet 325 mg 325 mg Oral q 4 hour PRN Amrit Giang MD ??? HYDROcodone-acetaminophen (NORCO) 5-325 mg per tablet 1 Tab 1 Tab Oral q 4 hour PRN Amrit Giang MD ??? morphine 5 mg/mL injection 2 mg 2 mg IV q 2 hour PRN Amrit Giang MD ??? nalOXone (NARCAN) 0.4 mg/mL injection 0.1 mg 0.1 mg IV See Admin Notes Amrit Giang MD ??? ondansetron (ZOFRAN ODT) tablet 4 mg 4 mg Oral q 6 hour PRN Amrit Giang MD ??? ondansetron (ZOFRAN) 4 mg/2 mL injection 4 mg 4 mg IV q 6 hour PRN Amrit Giang MD ??? aluminum - magnesium - simethicone (MYLANTA) 200-200-20 mg/5 mL oral suspension 30 mL 30 mL Oral q 2 hour PRN Amrit Giang MD ??? acetaminophen (TYLENOL) tablet 650 mg 650 mg Oral q 4 hour PRN Amrit Giang MD ??? bisacodyl (DULCOLAX) rectal suppository 10 mg 10 mg Rectal Daily PRN Amrit Giang MD ??? magnesium hydroxide (MILK OF MAGNESIA) oral suspension 30 mL 30 mL Oral Daily PRN Amrit Giang MD ??? sodium chloride 0.9% infusion IV See Admin Notes Amrit Giang MD ??? sodium chloride 0.9 % flush injection 3 mL 3 mL IV q 8 hour Amrit Giang MD ??? sodium chloride 0.9 % flush injection 3 mL 3 mL IV See Admin Notes Amrit Giang MD ??? sodium chloride 0.9% infusion IV Continuous Denise Rowley MD 125 mL/hr at 01/21/1314 ??? piperacillin-tazobactam (ZOSYN) IVPB 3.375 Gram 3.375 Gram IV q 6 hour Denise Rowley MD 3.375 Gram at 01/21/1311 ??? hydromorPHONE (DILAUDID) 1 mg/mL injection 1 mg 1 mg IV q 2 hour PRN Denise Rowley MD ??? hydromorPHONE (DILAUDID) 1 mg/mL injection 0.5 mg 0.5 mg IV q 4 hour PRN Denise Rowley MD ??? [DISCONTINUED] sodium chloride 0.9 % flush injection 3 mL 3 mL IV BID Amrit Giang MD ??? [DISCONTINUED] dextrose 5% - sodium chloride 0.45% infusion IV Continuous Amrit Giang MD Allergies: No Known Allergies Family Hx: Family History Problem Relation Age of Onset ??? Heart Disease Father ME ??? High Cholesterol Father ??? High Cholesterol [...] Cancer Neg Hx ??? Dementia Maternal Grandmother Social Hx: History Social History ??? Marital Status: Single Spouse Name: N/A Number of Children: N/A ??? Years of Education: N/A Occupational History ??? Social History Main Topics ??? Smoking status: Never Smoker ??? Smokeless tobacco: Never Used ??? Alcohol Use: 1.0 oz/week 2 Cans of beer per week ??? Drug Use: No ??? Sexually Active: Yes -- Female partner(s) Control/ Protection: None Other Topics Concern ??? Not on file Social History Narrative ??? No narrative on file Review of Systems: Constitutional: negative for fevers, chills, fatigue, anorexia, weight loss. Skin:no new rashes, no new lesions HEENT:negative for double vision, hearing loss, earaches, epistaxis, sore throat Respiratory: negative for cough, SOB, hemoptysis. Cardiovascular: negative for chest pain, SERRANO, orthopnea Gastrointestinal: negative for blood, constipation, diarrhea Genitourinary:negative for dysuria and hematuria. Musculoskeletal: negative for myalgias, arthralgias Hematologic/lymphatic: negative for easy bruising and bleeding Neurological: negative for tremor, TIA, headache Psychiatric: negative for anxiety and depression Immunological: Denies hx of TB, Hepatitis, HIV or other known infection. Endocrine: No heat or cold intolerance, no polyuria or polydipsia Physical Exam: BP 140/70 Pulse 50 Temp(Src) 97.8 ??F (36.6 ??C) (Oral) Resp 18 Ht 6' (1.829 m) Wt 260 lb(117.935 kg) BMI 35.25 kg/m2 SpO2 97% General appearance: Well developed, well nourished male in no acute distress. Patient is awake, alert, oriented, and answers questions appropriately. Head: atraumatic, normocephalic, without obvious abnormality Eyes: conjunctivae/corneas clear, sclera non icteric Neck: trachea is midline. Lungs: normal respiratory effort Heart: normal rate Abdomen: Soft, tender RUQ without guarding or rebound, non-distended. Extremities: extremities normal, atraumatic, no cyanosis or edema Neurologic: Grossly normal, no focal deficits. Musculoskeletal: no deformity or swelling Labs: Results for orders placed during the hospital encounter of 01/20/13 (from the past 24 hour(s)) CBC WITH DIFFERENTIAL Result Value Range WBC 7.6 4.0 - 9.8 K/uL RBC 4.67 4.50 - 5.40 M/uL HEMOGLOBIN 14.4 13.6 - 16.5 g/dL HEMATOCRIT 41.2 40.0 - 48.0 % MCV 88.2 82.0 - 99.0 fL MCH 30.8 27.2 - 32.6 pg MCHC 35.0 31.5 - 35.5 % PLATELETS 234 140 - 350 K/uL MPV 9.5 9.3 - 12.4 fL RDW 13.6 11.5 - 14.5 % RDW-STDEV 43.4 37.1 - 48.7 fL NEUTROPHILS 60 45 - 70 % LYMPHOCYTES 32 16 - 45 % MONOCYTES 6 3 - 13 % EOSINOPHILS 1 0 - 7 % BASOPHILS 0 0 - 2 % NEUTROPHIL ABSOLUTE 4.62 1.90 - 7.00 K/uL LYMPHOCYTE ABSOLUTE 2.41 0.70 - 4.50 K/uL MONOCYTE ABSOLUTE 0.47 0.10 - 1.30 K/uL EOSINOPHIL ABSOLUTE 0.10 0.00 - 0.70 K/uL BASOPHILS ABSOLUTE 0.03 0.00 - 0.20 K/uL COMPREHENSIVE METABOLIC PANEL Result Value Range SODIUM 139 135 - 145 mmol/L POTASSIUM 3.9 3.5 - 4.9 mmol/L CHLORIDE 102 96 - 108 mmol/L CO2 24 22 - 30 mmol/L CALCIUM 9.8 8.6 - 10.2 mg/dL BUN 13 6 - 20 mg/dL CREATININE 1.15 0.67 - 1.17 mg/dL GLUCOSE 98 65 - 99 mg/dL TOTAL PROTEIN 7.9 6.3 - 8.6 g/dL ALBUMIN 4.4 3.4 - 4.8 g/dL BILIRUBIN TOTAL 1.1 (*) 0.2 - 1.0 mg/dL ALKALINE PHOSPHATASE 97 40 - 129 U/L AST 33 12 - 38 U/L ALT 38 0 - 41 U/L GFR, >60 >=60 mL/min/1.7 sq meter GFR >60 >=60 mL/min/1.7 sq meter C-REACTIVE PROTEIN Result Value Range CRP 4.5 (*) 0.0 - 0.8 mg/dL LIPASE Result Value Range LIPASE 24 13 - 60 U/L PROTIME-INR Result Value Range PROTIME 13.1 12.7 - 15.1 Seconds INR 1.0 0.9 - 1.1 LIPASE Result Value Range LIPASE 23 13 - 60 U/L AMYLASE Result Value Range AMYLASE 50 28 - 100 U/L COMPREHENSIVE METABOLIC PANEL Result Value Range SODIUM 139 135 - 145 mmol/L POTASSIUM 3.8 3.5 - 4.9 mmol/L CHLORIDE 103 96 - 108 mmol/L CO2 24 22 - 30 mmol/L CALCIUM 9.2 8.6 - 10.2 mg/dL BUN 14 6 - 20 mg/dL CREATININE 1.21 (*) 0.67 - 1.17 mg/dL GLUCOSE 97 65 - 99 mg/dL TOTAL PROTEIN 6.9 6.3 - 8.6 g/dL ALBUMIN 4.0 3.4 - 4.8 g/dL BILIRUBIN TOTAL 1.7 (*) 0.2 - 1.0 mg/dL ALKALINE PHOSPHATASE 92 40 - 129 U/L AST 28 12 - 38 U/L ALT 33 0 - 41 U/L GFR, >60 >=60 mL/min/1.7 sq meter GFR >60 >=60 mL/min/1.7 sq meter CBC WITH DIFFERENTIAL Result Value Range WBC 7.4 4.0 - 9.8 K/uL RBC 4.55 4.50 - 5.40 M/uL HEMOGLOBIN 13.8 13.6 - 16.5 g/dL HEMATOCRIT 40.8 40.0 - 48.0 % MCV 89.7 82.0 - 99.0 fL MCH 30.3 27.2 - 32.6 pg MCHC 33.8 31.5 - 35.5 % PLATELETS 235 140 - 350 K/uL MPV 9.8 9.3 - 12.4 fL RDW 13.5 11.5 - 14.5 % RDW-STDEV 44.3 37.1 - 48.7 fL NEUTROPHILS 58 45 - 70 % LYMPHOCYTES 32 16 - 45 % MONOCYTES 8 3 - 13 % EOSINOPHILS 2 0 - 7 % BASOPHILS 0 0 - 2 % NEUTROPHIL ABSOLUTE 4.31 1.90 - 7.00 K/uL LYMPHOCYTE ABSOLUTE 2.38 0.70 - 4.50 K/uL MONOCYTE ABSOLUTE 0.57 0.10 - 1.30 K/uL EOSINOPHIL ABSOLUTE 0.16 0.00 - 0.70 K/uL BASOPHILS ABSOLUTE 0.03 0.00 - 0.20 K/uL Signed: Denise Rowley MD 01/21/2013, 11:07 AM RESSOR SERVICE TECHNICIAN documented in this encounter OR Notes * OR Anesthesia - Shanique Navarro CRNA - 01/22/2013 9:11 AM CST 01/22/2013 10:10 AM Andrew Montenegro No apparent Anesthesia related complications Shanique Navarro CRNA RESSOR SERVICE TECHNICIAN * Queenie-OP - Tonya Bernard, RN - 01/21/2013 6:31 PM CST To 421 / personal belongingsin former room 469 to be packed up and sent to [facility] claribel Gloria on 4 M/S RESSOR SERVICE TECHNICIAN * OR Anesthesia - Rodnye Bah MD - 01/21/2013 2:00 PM CST Pre-Anesthesia Evaluation - Long Form 01/21/2013 2:00 PM Name: Andrew Montenegro Age: 52 y.o. Sex: male CSN: [id number] Procedure: Procedure(s): CHOLECYSTECTOMY LAPAROSCOPIC Surgeons/Assistants: Surgeon(s) and Role: * Denise Rowley MD - Primary No Known Allergies Prescriptions prior to admission Medication Sig Dispense Refill ??? Vzdnj-8-YFY-EPA-Fish Oil 300-1,000 mg Capsule Take 2 Caps by mouth daily. 30 Cap 3 ??? CALCIUM CARBONATE (TUMS 500 ORAL) Take by mouth. ??? UBIDECARENONE (COQ-10 ORAL) Take by mouth daily. ??? MULTIVITAMIN W-MINERALS/LUTEIN (CENTRUM SILVER ORAL) Take by mouth daily. No prescriptions prior to admission Patient Active Problem List Diagnosis Date Noted ??? Acute cholecystitis 01/20/2013 ??? Hyperlipidemia 04/13/2012 Overview Note: Last lipids: total 240, TG 318, HDL 41, and LDL 135 - '08 ??? Obese 04/13/2012 Past Medical History Diagnosis Date ??? Hyperlipidemia [...] skin lesion excision Right 2006 ear lobe History Substance Use Topics ??? Smoking status: Never Smoker ??? Smokeless tobacco: Never Used ??? Alcohol Use: 1.0 oz/week 2 Cans of beer per week Family History Problem Relation Age of Onset ??? Heart Disease Father ME ??? High Cholesterol Father ??? High Cholesterol [...] Cancer Neg Hx ??? Dementia Maternal Grandmother Previous Anesthesia Problems/Concerns: No anesthesia problems/complications History of PONV No Review of Systems Cardiovascular: negative Respiratory: negative Gastroenterology: negative PHYSICAL EXAM BP 128/71 Pulse 51 Temp(Src) 97.8 ??F (36.6 ??C) (Temporal) Resp 18 Ht 6' (1.829 m) Wt 260 lb (117.935 kg) BMI 35.25 kg/m2 SpO2 98% Weight: Weight: 260 lb (117.935 kg) (01/20/13 1800) Height: Ht Readings from Last 1 Encounters: 01/20/13 6' (1.829 m) BMI: Body mass index is 35.25 kg/(m^2). Airway: normal range of motion: Airway Class: II (soft palate, uvula, fauces visible); None Lungs: clear to auscultation bilaterally, normal respiratory effort Heart: regular rate and rhythm, S1, S2 normal, no murmur, click, rub or gallop Neuro: alert, oriented x 3, no defects noted in general exam. Vascular Access: Peripheral Line LABS Lab Results Component Value Date/Time WBC 7.4 01/21/2013 4:38 AM WBC 5.5 04/13/2012 12:00 PM HEMOGLOBIN 13.8 01/21/2013 4:38 AM HEMATOCRIT 40.8 01/21/2013 4:38 AM HEMATOCRIT 47.8 04/13/2012 12:00 PM PLATELETS 235 01/21/2013 4:38 AM MCV 89.7 01/21/2013 4:38 AM Lab Results Component Value Date/Time SODIUM 139 01/21/2013 4:38 AM POTASSIUM 3.8 01/21/2013 4:38 AM CHLORIDE 103 01/21/2013 4:38 AM CHLORIDE 103 04/13/2012 12:00 PM CO2 24 01/21/2013 4:38 AM CALCIUM 9.2 01/21/2013 4:38 AM CALCIUM 10.0 04/13/2012 12:00 PM BUN 14 01/21/2013 4:38 AM CREATININE 1.21* 01/21/2013 4:38 AM GLUCOSE 97 01/21/2013 4:38 AM Lab Results Component Value Date/Time INR 1.0 01/20/2013 5:52 PM PROTIME 13.1 01/20/2013 5:52 PM No results found for this basename: HCGURPOC, HCGQUALUR, HCGQUAL, HCGQUANT, HCGINTACT No results found for this basename: glucpoc EKG: normal EKG, normal sinus rhythm Other Studies/Considerations: None Postop pain management discussed yes Smoking/Tobacco Counseling: None Recommendations: Nausea prophylaxis [facility] report reviewed. No interval changes in patient's history or review of systems.Yes NPO Yes ASA Physical Status: ASA 2 - Patient with mild systemic disease with no functional limitations I have seen and examined this patient and confirm that all data is current and accurate. Yes Choice of Anesthesia/Anesthesia Plan: Proceed, General and Routine Monitoring I have discussed the anesthetic options and the risks/benefits with the patient/family. Questions have been solicited and answered. Yes Rodney Bah MD I can be reached during the day at [phone] If no answer call [phone] RESSOR SERVICE TECHNICIAN * Operative Report - Denise Rowley MD - 01/21/2013 1:34 PM CST Operative Report : [place], [place] Patient: Andrew Montenegro / 52 y.o. / male : 1960 Date: 01/21/2013 [facility]: [id number] Preoperative Diagnosis: acute cholecystitis Postoperative Diagnosis: Same Procedure Performed: Laparoscopic Cholecystectomy Incarcerated umbilical hernia repair Surgeon: Denise Rowley MD, FACS Surgical Staff: [employer] Administrator: Alesha Ness RN; Aury Mariscal RN Scrub: Hakeem Garcia Adjudication Specialist: Erum Cabrera RN Anesthesia: General Estimated Blood Loss: Complications: None Findings: hydrops Description of Technique: After induction of General endotracheal anesthesia, the abdomen was prepped and draped in the usualsterile fashion. A time out was performed to verify patient name and procedure being performed. A total of 30 cc of local was injected for pain control. A 10mm infraumbilical incision was made, and there was a 2cm umbilical hernia. The hernia sac was dissected and removed. CO2 gas was insufflated to a maximal pressure of 15 cm of H2O. A 10mm trocar was introduced into the abdomen, and the camera was placed intra-abdominally and verified no bowel injury. The patient was placed into steep reversetrendelenburg, and rotated to the left. A 10mm trocar was placed the the subxiphoid region, and two 5mm lateral trocars were placed under direct vision. The gallbladder was distended and inflamed. An ovarian needle was used to decompress the gallbladder. The fundus was grasped and retracted cephalad, and the infundibulum was retracted inferior-laterally, exposing the triangle of Calot. The cystic duct, cystic artery, and common duct were identified. The cystic duct was triply clipped and divided. The cystic artery was doubly clipped and divided. The gallbladder was dissected from the gallbladder fossa using the electrocautery. The gallbladder was then placed in an Endocatch bag and removed via the umbilical trocar site which was enlarged several CM to facilitate extraction. The right upper quadrant was well irrigated with saline, with return of clear fluid. There was no evidence of bile leak, bleeding, or intestinal injury. All needle and sponge counts were correct times two. The camera was placed through the subxiphoid trocar site, and the umbilical trocar site was examined. There was no evidence of bleeding or bowel injury. The case was then concluded. The pneumoperitoneum was released. All the trocars were removed under direct vision. The umbilical hernia was repaired with interrupted 0-nurolon and subxiphoid trocar site were closed with O-Vicryl. The skin layer of the four incisions was closed with 4-O vicryl. Steri-strips and bandaids were applied. The patient was taken to the recovery room in good condition having tolerated the procedure well. Deinse Rowley MD, FACS RESSOR SERVICE TECHNICIAN * OR Anesthesia - Jimmy Huff AA - 01/20/2013 6:28 PM CST Pre-Anesthesia Evaluation - Short Form 01/20/2013 6:29 PM Name: Andrew Montenegro Age: 52 y.o. Sex: male CSN: [id number] Procedure: Procedure(s): CHOLECYSTECTOMY LAPAROSCOPIC Surgeons/Assistants: Surgeon(s) and Role: * Denise Rowley MD - Primary No Known Allergies Prescriptions prior to admission Medication Sig Dispense Refill ??? Kwbfq-8-EPD-EPA-Fish Oil 300-1,000 mg Capsule Take 2 Caps by mouth daily. 30 Cap 3 ??? CALCIUM CARBONATE (TUMS 500 ORAL) Take by mouth. ??? UBIDECARENONE (COQ-10 ORAL) Take by mouth daily. ??? MULTIVITAMIN W-MINERALS/LUTEIN (CENTRUM SILVER ORAL) Take by mouth daily. No prescriptions prior to admission Current Facility-Administered Medications Medication Dose Route Frequency Provider Last Rate Last Dose ??? acetaminophen (TYLENOL) tablet 325 mg 325 mg Oral q 4 hour PRN Amrit Giang MD ??? HYDROcodone-acetaminophen (NORCO) 5-325 mg per tablet 1 Tab 1 Tab Oral q 4 hour PRN Amrit Giang MD ??? morphine 5 mg/mL injection 2 mg 2 mg IV q 2 hour PRN Amrit Giang MD ??? nalOXone (NARCAN) 0.4 mg/mL injection 0.1 mg 0.1 mg IV See Admin Notes Amrit Giang MD ??? ondansetron (ZOFRAN ODT) tablet 4 mg 4 mg Oral q 6 hour PRN Amrit Giang MD ??? ondansetron (ZOFRAN) 4 mg/2 mL injection 4 mg 4 mg IV q 6 hour PRN Amrit Giang MD ??? aluminum - magnesium - simethicone (MYLANTA) 200-200-20 mg/5 mL oral suspension 30 mL 30 mL Oral q 2 hour PRN Amrit Giang MD ??? acetaminophen (TYLENOL) tablet 650 mg 650 mg Oral q 4 hour PRN Amrit Giang MD ??? bisacodyl (DULCOLAX) rectal suppository 10 mg 10 mg Rectal Daily PRN Amrit Giang MD ??? magnesium hydroxide (MILK OF MAGNESIA) oral suspension 30 mL 30 mL Oral Daily PRN Amrit Giang MD ??? sodium chloride 0.9% infusion IV See Admin Notes Amrit Giang MD ??? sodium chloride 0.9 % flush injection 3 mL 3 mL IV q 8 hour Amrit Giang MD ??? sodium chloride 0.9 % flush injection 3 mL 3 mL IV See Admin Notes Amrit Giang MD ??? sodium chloride 0.9% infusion IV Continuous Denise Rowley MD 125 mL/hr at 01/20/13 1816 ??? piperacillin-tazobactam (ZOSYN) IVPB 3.375 Gram 3.375 Gram IV q 6 hour Denise Rowley MD ??? hydromorPHONE (DILAUDID) 1 mg/mL injection 1 mg 1 mg IV q 2 hour PRN Denise Rowley MD ??? hydromorPHONE (DILAUDID) 1 mg/mL injection 0.5 mg 0.5 mg IV q 4 hour PRN Denise Rowley MD ??? [DISCONTINUED] sodium chloride 0.9 % flush injection 3 mL 3 mL IV BID Amrit Giang MD ??? [DISCONTINUED] dextrose 5% - sodium chloride 0.45% infusion IV Continuous Amrit Giang MD Patient Active Problem List Diagnosis Date Noted ??? Acute cholecystitis 01/20/2013 ??? Hyperlipidemia 04/13/2012 Overview Note: Last lipids: total 240, TG 318, HDL 41, and LDL 135 - '08 ??? Obese 04/13/2012 Past Medical History Diagnosis Date ??? Hyperlipidemia [...] skin lesion excision Right 2006 ear lobe History Substance Use Topics ??? Smoking status: Never Smoker ??? Smokeless tobacco: Never Used ??? Alcohol Use: 1.0 oz/week 2 Cans of beer per week Family History Problem Relation Age of Onset ??? Heart Disease Father ME ??? High Cholesterol Father ??? High Cholesterol [...] Cancer Neg Hx ??? Dementia Maternal Grandmother Previous Anesthesia Problems/Concerns: No anesthesia problems/complications History of PONV No Review of Systems Cardiovascular: negative Respiratory: negative Smoke: No LIS: No, snores Gastroenterology: positive for dyspepsia takes Tums occasionally Endocrine: Negative Heme/ONC: Negative, s/p localized skin cancer of ear. Takes green tea extract last yesterday. Neuro: cochlear implant. Deaf once implant is removed. NPO: Nuts at 1000am 01/20/13 Currently chewing gun at 1840 PHYSICAL EXAM BP 112/78 Pulse 56 Temp(Src) 98.2 ??F (36.8 ??C) (Oral) Resp 18 Ht 6' (1.829 m) Wt 260 lb(117.935 kg) BMI 35.25 kg/m2 SpO2 98% Weight: Weight: 260 lb (117.935 kg) (01/20/13 1800) Height: Ht Readings from Last 1 Encounters: 01/20/13 6' (1.829 m) BMI: Body mass index is 35.25 kg/(m^2). Airway: normal range of motion: Airway Class: II (soft palate, uvula, fauces visible); None Lungs: clear to auscultation bilaterally, normal respiratory effort Heart: regular rate and rhythm, S1, S2 normal, no murmur, click, rub or gallop Neuro: alert, oriented x 3, no defects noted in general exam. Vascular Access: Peripheral Line LABS Lab Results Component Value Date/Time WBC 7.6 01/20/2013 3:30 PM WBC 5.5 04/13/2012 12:00 PM HEMOGLOBIN 14.4 01/20/2013 3:30 PM HEMATOCRIT 41.2 01/20/2013 3:30 PM HEMATOCRIT 47.8 04/13/2012 12:00 PM PLATELETS 234 01/20/2013 3:30 PM MCV 88.2 01/20/2013 3:30 PM Lab Results Component Value Date/Time SODIUM 139 01/20/2013 3:30 PM POTASSIUM 3.9 01/20/2013 3:30 PM CHLORIDE 102 01/20/2013 3:30 PM CHLORIDE 103 04/13/2012 12:00 PM CO2 24 01/20/2013 3:30 PM CALCIUM 9.8 01/20/2013 3:30 PM CALCIUM 10.0 04/13/2012 12:00 PM BUN 13 01/20/2013 3:30 PM CREATININE 1.15 01/20/2013 3:30 PM GLUCOSE 98 01/20/2013 3:30 PM Lab Results Component Value Date/Time INR 1.0 01/20/2013 5:52 PM PROTIME 13.1 01/20/2013 5:52 PM No results found for this basename: HCGURPOC, HCGQUALUR, HCGQUAL, HCGQUANT, HCGINTACT No results found for this basename: glucpoc EKG: there are no previous tracings available for comparison Other Studies/Considerations: CT Scan: IMPRESSION: Abnormal edematous thickening of the gallbladder wall with moderate gallbladder dilatation possibly with some tiny calculi believed to represent acute cholecystitis. The finding was promptly communicated to Dr. Schaeffer's office staff at the time of interpretation as well as a message placed on the [employer] system. Risks/Alternatives discussed. Questions solicited and answered. Yes Postop pain management discussed yes Smoking/Tobacco Counseling: None Recommendations: None I have discussed the anesthetic options and the risks/benefits with the patient/family. Questions have been solicited and answered. Yes JONES Jon RESSOR SERVICE TECHNICIAN documented in this encounter Miscellaneous Notes * Care Plan - Hakeem Da Silva RN - 01/22/2013 11:10 AM CST Problem: General Plan of Care (Adult, Obstetrics) Goal: Individualization/Patient-Specific Goal (Adult, Obstetrics) The patient and/or their tour sales representative will achieve their patient-specific goals related to the plan of care. The patient-specific goals include: Andrew will be discharged with tolerable pain control and relief of nausea. Outcome: Adequate for Discharge Date Met: 01/22/13 Discharged home. Orders written by Dr. Rowley, and Dr. Giang concurred. Prescription for pain meds given,explained,a nd understood. Discharge orders which included wound care instructions given andunderstood. Patient transported home by spouse RESSOR SERVICE TECHNICIAN * Care Plan - Rebekah Beal RN - 01/21/2013 12:56 PM CST Potential for anxiety related to surgical intervention Interventions: convey caring/supportive attitude; offer emotional support as needed; provide comfort measures (warm blanket, pillow, quiet environment); allow patient opportunity to verbalize concerns/fears/questions; explore coping behaviors; allow age-specific/special needs family support Expected Outcome: Patient will demonstrate decreased anxiety or adaptive coping strategies Outcome Met: comfort measures offered Potential for pain related to surgical/procedural intervention Interventions: Assess level of pain/comfort utilizing verbal/nonverbal pain scales; assess culturalor anglican indicators attached to pain; administer pain medications as prescribed; utilize non-pharmacologic pain control and comfort measures Expected Outcome: Patient demonstrates and reports adequate pain control Outcome Met: denies any pain RESSOR SERVICE TECHNICIAN * Care Plan - Dana Gonzalez RN - 01/21/2013 5:53 AM CST Problem: General Plan of Care (Adult, Obstetrics) Goal: Individualization/Patient-Specific Goal (Adult, Obstetrics) The patient and/or their tour sales representative will achieve their patient-specific goals related to the plan of care. The patient-specific goals include: Andrew will be discharged with tolerable pain control and relief of nausea. Outcome: Gladys Rojo had an uneventful night. He has been NPO. He is voiding without complaint. He is up ad channing.He denies any pain and nausea. He slept between care. RESSOR SERVICE TECHNICIAN documented in this encounter Plan of Treatment Not on file documented as of this encounter Procedures Procedure Name Priority Date/Time Associated Diagnosis Comments CBC WITH DIFFERENTIAL Routine 01/22/2013 4:15 AM COMPRESSOR SERVICE TECHNICIAN LIPASE Routine 01/22/2013 4:15 AM COMPRESSOR SERVICE TECHNICIAN COMPREHENSIVE METABOLIC PANEL Routine 01/22/2013 4:15 AM COMPRESSOR SERVICE TECHNICIAN PATHOLOGY Routine 01/21/2013 5:00 PM COMPRESSOR SERVICE TECHNICIAN EKG 12-LEAD Routine 01/21/2013 4:14 PM COMPRESSOR SERVICE TECHNICIAN HERNIA UMBILICAL REPAIR 01/22/20 13 12:58 PM COMPRESSOR SERVICE TECHNICIAN CHOLECYSTECTOMY LAPAROSCOPIC 01/21/2013 12:58 PM COMPRESSOR SERVICE TECHNICIAN CBC WITH DIFFERENTIAL Routine 01/21/2013 4:38 AM COMPRESSOR SERVICE TECHNICIAN LIPASE Routine 01/21/2013 4:38 AM COMPRESSOR SERVICE TECHNICIAN AMYLASE Routine 01/21/2013 4:38 AM COMPRESSOR SERVICE TECHNICIAN COMPREHENSIVE METABOLIC PANEL Routine 01/21/2013 4:38 AM COMPRESSOR SERVICE TECHNICIAN PROTIME-INR Routine 01/20/2013 5:52 PM COMPRESSOR SERVICE TECHNICIAN LIPASE Stat 01/20/2013 5:52 PM COMPRESSOR SERVICE TECHNICIAN CBC WITH DIFFERENTIAL Stat 01/20/2013 3:30 PM COMPRESSOR SERVICE TECHNICIAN C-REACTIVE PROTEIN Stat 01/20/2013 3: 30 PM COMPRESSOR SERVICE TECHNICIAN COMPREHENSIVE METABOLIC PANEL Stat 01/20/2013 3:30 PM COMPRESSOR SERVICE TECHNICIAN documented in this encounter Results * LIPASE (01/22/2013 4:15 AM COMPRESSOR SERVICE TECHNICIAN) Pathologist [facility] LIPASE 40 13 - 60 U/L [facility] Blood specimen (specimen) 01/22/2013 4:15 AM COMPRESSOR SERVICE TECHNICIAN 01/22/2013 4:28 AM COMPRESSOR SERVICE TECHNICIAN Denise Rowley MD CHEMISTRY ORDERABLES [facility]# [id number] [address] [place] [address] * (ABNORMAL) COMPREHENSIVE METABOLIC PANEL (01/22/2013 4:15 AM COMPRESSOR SERVICE TECHNICIAN) Pathologist [facility] SODIUM 137 135 - 145 mmol/L [facility] LABORATORY SERVICES [facility] POTASSIUM 4.2 3.5 - 4.9 mmol/L [facility] LABORATORY SERVICES [facility] CHLORIDE 103 96 - 108 mmol/L [facility] CO2 21(L) 22 - 30 mmol/L [facility] SERVICES [facility] CALCIUM 9.3 8.6 - 10.2 mg/dL [facility] LABORATORY SERVICES [facility] BUN 11 6 - 20 mg/dL [facility] CREATININE 1.03 0.67 - 1.17 mg/dL [facility] GLUCOSE 114(H) 65 - 99 mg/dL [employer] LABORATORY [facility] TOTAL PROTEIN 7.1 6.3 - 8.6 g/dL [facility]OR[facility]ORY [facility] ALBUMIN 4.0 3.4 - 4.8 g/dL [facility] SERVICES [facility]. [facility] BILIRUBIN TOTAL 1.1(H) 0.2 - 1.0 mg/dL [facility] ALKALINE PHOSPHATASE 94 40 - 129 U/L [facility] LABOR[facility]ORY [facility] AST 72(H) 12 - 38 U/L [facility] LABORATORY SERVICES - [facility] ALT 73(H) 0 - 41 U/L [facility] GFR, >60 >=60 mL/min/1. 7 sq meter [facility] LABORATORY SERVICES - [facility] GFR >60 >=60 mL/min/1. 7 sq meter [facility] LABORATORY SERVICES [facility] Comment: GFR is calculated using the IDMS-Traceable Modification of Diet in Renal Disease (MDRD) Study formula and is only valid for patients 18 years or older. Further interpretative information is available in the Laboratory Services Policy Manual on the [facility] Intranet at: [email or web address]/ Blood specimen (specimen) 01/22/2013 4:15 AM COMPRESSOR SERVICE TECHNICIAN 01/22/2013 4:28 AM COMPRESSOR SERVICE TECHNICIAN Denise Rowley MD CHEMISTRY ORDERABLES [facility] LABORATORY SERVICES [facility] CLIA# [id number] [address] [address] * (ABNORMAL) CBC WITH DIFFERENTIAL (01/22/2013 4:15 AM COMPRESSOR SERVICE TECHNICIAN) WBC 9.8 4.0 - 9.8 K/uL [facility] RBC 4.48(L) 4.50 - 5.40 M/uL [facility] HEMOGLOBIN 13.8 13.6 - 16.5 g/dL [facility] HEMATOCRIT 39.4(L) 40.0 - 48.0 % [facility] LABORATORY SERVICES [facility] MCV 87.9 82.0 - 99.0 fL [facility] LABORATORY SERVICES [facility] MCH 30.8 27.2 - 32.6 pg [facility] LABORATORY SERVICES [facility] MCHC 35.0 31.5 - 35.5 % [facility] LAB[facility]ORY [facility] PLATELETS 236 140 - 350 K/uL [facility] LABORATORY [facility] MPV 9.6 9.3 - 12.4 fL [facility] LABORATORY [facility] RDW 12.9 11.5 - 14.5 % [facility]ORY [facility] RDW-STDEV 41.3 37.1 - 48.7 fL [facility] LABORATORY SERVICES - [facility] NEUTROPHILS 80(H) 45 - 70 % [facility] LABORATORY SERVICES - . [facility] LYMPHOCYTES 14(L) 16 - 45 % [facility] LABORATORY SERVICES - . [facility] MONOCYTES 6 3 - 13 % [facility] LABORATORY SERVICES - . [place] EOSINOPHILS 0 0 - 7 % [facility] LABORATORY SERVICES - . [place] BASOPHILS 0 0 - 2 % [facility] LABORATORY SERVICES - . [place] NEUTROPHIL ABSOLUTE 7.80(H) 1.90 - 7.00 K/uL [facility] LABORATORY SERVICES - . [facility] LYMPHOCYTE ABSOLUTE 1.32 0.70 - 4.50 K/uL [facility] LABORATORY SERVICES - . [place] MONOCYTE ABSOLUTE 0.63 0.10 - 1.30 K/uL [facility] LABORATORY SERVICES - . [facility] EOSINOPHIL ABSOLUTE 0.01 0.00 - 0.70 K/uL [facility] LABORATORY SERVICES - . [facility] BASOPHILS ABSOLUTE 0.01 0.00 - 0.20 K/uL [facility] LABORATORY SERVICES - [facility] Blood specimen (specimen) 01/22/2013 4:15 AM COMPRESSOR SERVICE TECHNICIAN 01/22/2013 4:28 AM COMPRESSOR SERVICE TECHNICIAN Denise Rowley MD HEMATOLOGY ORDERABLE S [facility] CLIA# [id number] [address] [place] [place] [address] * PATHOLOGY (01/21/2013 5:00 PM COMPRESSOR SERVICE TECHNICIAN) SURGICAL PATHOLOGY ?[facility] ?[address] ? [facility], [place] ??[id number] ? Patient: ??ANDREW MONTENEGRO ? : ??1960 ? Procedure Date: ??01/21/2013 ? Accession Date: ??01/22/2013 ? Case No: ??[id number] ? Ordering Dr: ??DENISE ROWLEY ? Case type SW is performed by [facility], [address], ? [place], [place] ??[address]; all other case types are performed by [facility] ? [facility], [address] [facility] [address] ??[address] ?SURGICAL PATHOLOGY & NON-GYNECOLOGIC CYTOPATHOLOGY REPORT ? DIAGNOSIS ? ABDOMEN, HERNIA REPAIR: ? - HERNIA SAC AND CONTENTS, CONSISTENT WITH. ? GALLBLADDER, LAPAROSCOPIC CHOLECYSTECTOMY: ? - LITHIASIS ? - GANGRENOUS CHOLECYSTITIS ? Specimen Description: ? (1) Hernia sac; (2) gallbladder. ? Operative Procedure: ? Laparoscopic cholecystectomy with hernia repair. ? Patient Information/Histor y/Diagnosis: ? Acute cholecystitis. ? Gross: ? Received are two containers labeled Andrew Montenegro. Received in the first ? container, additionally labeled hernia sac, is a piece of erickson-yellow ? fatty tissue in a somewhat nodular configuration that is partially covered ? by a translucent luevano membranous sheath. Sections reveal glistening fat ? with no hemorrhage or necrosis. A saccular structure is not appreciated. ? Tool Repairer Bench sections are submitted in A1. ? Received in the second container labeled gallbladder, is a gallbladder ? measuring 7.6 x 4.5 x 4 cm. The seros is dusky pink-luevano. The cyst duct at ? its transection is 0.4 cm in diameter. Upon opening, the gallbladder lumen ? contains a single oval smooth brown calculus that is 4 x 2.5 x 1.8 cm. The ? mucosa is flattened, red and hemorrhagic. The wall is thickened to a ? maximum of 0.8 cm. No mucosal lesion is identified. Tool Repairer Bench sections ? are submitted in B1 and B2. ? GL/PJS 01.24.2013 05:57 am ? Microscopic: ? Received are slides labeled [id number], Andrew Moni. ? Sections of the hernia identify sheets of mature adipose tissue. A definite ? mesothelial lining is not identified. ? The gallbladder mucosa is extensively necrotic. Intact mucosa is reactive ? in appearance. There are foci of full-thickness necrosis of the gallbladder ? wall. There are patchy transmural infiltrates of acute and chronic ? inflammatory cells. Inflammatory changes extend to subserosal adipose ? tissue ? PJC/TMZ 01.24.2013 12:29 pm ? Staging Form: ? NO. ? ELECTRONIC SIGNATURE FOR OLGA HOUGH M.D.- 01/24/13 03:30 pm [facility] [employer] [facility] Tissue specimen (specimen) 01/21/2013 5:00 PM COMPRESSOR SERVICE TECHNICIAN Denise Rowley MD PATHOLOGY/CYTOLOGY O RDERABLES [facility] [employer] [facility]# [id number] [address] [facility] [place] [address] * EKG 12-LEAD (01/21/2013 4:14 PM COMPRESSOR SERVICE TECHNICIAN) Amrit Giang MD ECG ORDERABLES * CBC WITH DIFFERENTIAL (01/21/2013 4:38 AM COMPRESSOR SERVICE TECHNICIAN) WBC 7.4 4.0 - 9.8 K/uL [facility] LABORATORY [facility] RBC 4.55 4.50 - 5.40 M/uL [facility] [employer] [facility] HEMOGLOBIN 13.8 13.6 - 16.5 g/dL [facility] [employer] [facility] HEMATOCRIT 40.8 40.0 - 48.0 % [facility] [employer] [facility] MCV 89.7 82.0 - 99.0 fL [facility] [employer] [facility] MCH 30.3 27.2 - 32.6 pg [facility] MCHC 33.8 31.5 - 35.5 % [facility] PLATELETS 235 140 - 350 K/uL [facility] MPV 9.8 9.3 - 12.4 NM [facility] RDW 13.5 11.5 - 14.5 % [facility] RDW-STDEV 44.3 37.1 - 48.7 fL [facility] NEUTROPHILS 58 45 - 70 % [facility] LYMPHOCYTES 32 16 - 45 % [facility] MONOCYTES 8 3 - 13 % [facility] EOSINOPHILS 2 0 - 7 % [facility] BASOPHILS 0 0 - 2 % [facility] NEUTROPHIL ABSOLUTE 4.31 1.90 - 7.00 K/uL [facility] LYMPHOCYTE ABSOLUTE 2.38 0.70 - 4.50 K/uL [facility] MONOCYTE ABSOLUTE 0.57 0.10 - 1.30 K/uL [facility] EOSINOPHIL ABSOLUTE 0.16 0.00 - 0.70 K/uL [facility] BASOPHILS ABSOLUTE 0.03 0.00 - 0.20 K/uL [facility] LABORATORY SERVICES - [facility] Blood specimen (specimen) 01/21/2013 4:38 AM COMPRESSOR SERVICE TECHNICIAN 01/21/2013 5:34 AM COMPRESSOR SERVICE TECHNICIAN Denise Rowley MD HEMATOLOGY ORDERABLE S [employer] LABORATORY SERVICES [facility] CLIA# [id number] [address] [place] [address] * (ABNORMAL) COMPREHENSIVE METABOLIC PANEL (01/21/2013 4:38 AM COMPRESSOR SERVICE TECHNICIAN) SODIUM 139 135 - 145 mmol/L [facility] LABORATORY SERVICES [facility] POTASSIUM 3.8 3.5 - 4.9 mmol/L [facility] LABORATORY SERVICES [facility] CHLORIDE 103 96 - 108 mmol/L [facility] LABORATORY SERVICES [facility] CO2 24 22 - 30 mmol/L [facility] LABORATORY SERVICES [facility] CALCIUM 9.2 8.6 - 10.2 mg/dL [facility] BUN 14 6 - 20 mg/dL [facility] CREATININE 1.21(H) 0.67 - 1.17 mg/dL [facility] GLUCOSE 97 65 - 99 mg/dL [facility] TOTAL PROTEIN 6.9 6.3 - 8.6 g/dL [facility] ALBUMIN 4.0 3.4 - 4.8 g/dL [facility] BILIRUBIN TOTAL 1.7(H) 0.2 - 1.0 mg/dL [facility] ALKALINE PHOSPHATASE 92 40 - 129 U/L [facility] AST 28 12 - 38 U/L [facility] ALT 33 0 - 41 U/L [facility] GFR, >60 >=60 mL/min/1. 7 sq meter [facility] GFR >60 >=60 mL/min/1. 7 sq meter [facility] Comment: GFR is calculated using the IDMS-Traceable Modification of Diet in Renal Disease (MDRD) Study formula and is only valid for patients 18 years or older. Further interpretative information is available in the Laboratory Services Policy Manual on the [facility] Intranet at: [email or web address]/ Blood specimen (specimen) 01/21/2013 4:38 AM COMPRESSOR SERVICE TECHNICIAN 01/21/2013 5:34 AM COMPRESSOR SERVICE TECHNICIAN Denise Rowley MD CHEMISTRY [facility]ABLES [id number] [address] [facility] [place] [address] * AMYLASE (01/21/2013 4:38 AM COMPRESSOR SERVICE TECHNICIAN) AMYLASE 50 28 - 100 U/L [facility] Blood specimen (specimen) 01/21/2013 4:38 AM COMPRESSOR SERVICE TECHNICIAN 01/21/2013 5:34 AM COMPRESSOR SERVICE TECHNICIAN Denise Rowley MD CHEMISTRY ORDERABLES Performing Organization Address City/[facility]/ZIP Co de Phone Number [facility] CLIA# [id number] [address] [place], [place] [address] * LIPASE (01/21/2013 4:38 AM COMPRESSOR SERVICE TECHNICIAN) LIPASE 23 13 - 60 U/L [facility] Blood specimen (specimen) 01/21/2013 4:38 AM COMPRESSOR SERVICE TECHNICIAN 01/21/2013 5:34 AM COMPRESSOR SERVICE TECHNICIAN Denise Rowley MD CHEMISTRY ORDERABLES Performing Organization Address [facility] de Phone Number [facility] CLIA# [id number] [address] [facility] [place] [address] * PROTIME-INR (01/20/2013 5:52 PM COMPRESSOR SERVICE TECHNICIAN) PROTIME 13.1 12.7 - 15.1 Seconds [facility] INR 1.0 0.9 - 1.1 [facility] [employer] [facility] Comment: INR Therapeutic Range: Adult: ?? 2.0 - 3.0 for pulmonary embolism or prophylaxis against venous ?thrombosis or systemic embolization. 2.0 - 3.0 for patients with tissue heart valves. 2.5 - 3.5 for patients with mechanical heart valves or post ME. Pediatric ??(12 years and under): 1.5 - 3.0 Although the target range in children is not well established, ?INR values of 1.5 - 3.0 are recommended for most patients. ?Higher values have been used in children with prosthetic ?cardiac valves and hereditary clotting disorders. [place] (<3 days) therapeutic ranges have not been established. Blood specimen (specimen) 01/20/2013 5:52 PM COMPRESSOR SERVICE TECHNICIAN 01/20/2013 5:58 PM COMPRESSOR SERVICE TECHNICIAN Denise Rowley MD HEMATOLOGY ORDERABLE S [facility] LABORATORY [facility]# [id number] [address] [place] [address] * LIPASE (01/20/2013 5:52 PM COMPRESSOR SERVICE TECHNICIAN) LIPASE 24 13 - 60 U/L [facility] LA BORATORY [facility] Blood specimen (specimen) 01/20/2013 5:52 PM COMPRESSOR SERVICE TECHNICIAN 01/20/2013 5:58 PM COMPRESSOR SERVICE TECHNICIAN Denise Rowley MD CHEMISTRY ORDERABLES Performing Organization Address [facility]/ZIP Co de Phone Number [facility]# [id number] [address] [place] [address] * (ABNORMAL) C-REACTIVE PROTEIN (01/20/2013 3:30 PM COMPRESSOR SERVICE TECHNICIAN) CRP 4.5(H) 0.0 - 0.8 mg/dL [facility]ORATORY SERVICES [facility] Blood specimen (specimen) 01/20/2013 3:30 PM COMPRESSOR SERVICE TECHNICIAN 01/20/2013 3:34 PM COMPRESSOR SERVICE TECHNICIAN Amrit Giang MD CHEMISTRY ORDERABLES Performing Organization Address City/[facility]/ZIP Co de Phone Number [facility]# [id number] [address] [place] [address] * (ABNORMAL) COMPREHENSIVE METABOLIC PANEL (01/20/2013 3:30 PM COMPRESSOR SERVICE TECHNICIAN) SODIUM 139 135 - 145 mmol/L [facility] POTASSIUM 3.9 3.5 - 4.9 mmol/L [facility] CHLORIDE 102 96 - 108 mmol/L [facility] CO2 24 22 - 30 mmol/L [facility] CALCIUM 9.8 8.6 - 10.2 mg/dL [facility] BUN 13 6 - 20 mg/dL [facility]. [place] CREATININE 1.15 0.67 - 1.17 mg/dL [facility] GLUCOSE 98 65 - 99 mg/dL [facility] TOTAL PROTEIN 7.9 6.3 - 8.6 g/dL [facility] ALBUMIN 4.4 3.4 - 4.8 g/dL [facility] BILIRUBIN TOTAL 1.1(H) 0.2 - 1.0 mg/dL [facility] ALKALINE PHOSPHATASE 97 40 - 129 U/L [facility] AST 33 12 - 38 U/L [facility] ALT 38 0 - 41 U/L [facility] GFR, >60 >=60 mL/min/1. 7 sq meter [facility] GFR >60 >=60 mL/min/1. 7 sq meter [facility] Comment: GFR is calculated using the IDMS-Traceable Modification of Diet in Renal Disease (MDRD) Study formula and is only valid for patients 18 years or older. Further interpretative information is available in the Laboratory Services Policy Manual on the [facility] Intranet at: [email or web address]/ Blood specimen (specimen) 01/20/2013 3:30 PM COMPRESSOR SERVICE TECHNICIAN 01/20/2013 3:34 PM COMPRESSOR SERVICE TECHNICIAN Amrit Giang MD CHEMISTRY ORDERABLES [id number] [address] [place] [place] [address] * CBC WITH DIFFERENTIAL (01/20/2013 3:30 PM COMPRESSOR SERVICE TECHNICIAN) WBC 7.6 4.0 - 9.8 K/uL [facility] RBC 4.67 4.50 - 5.40 M/uL [facility] HEMOGLOBIN 14.4 13.6 - 16.5 g/dL [facility] HEMATOCRIT 41.2 40.0 - 48.0 % [facility] MCV 88.2 82.0 - 99.0 fL [facility] MCH 30.8 27.2 - 32.6 pg [facility] MCHC 35.0 31.5 - 35.5 % [facility] PLATELETS 234 140 - 350 K/uL [facility] MPV 9.5 9.3 - 12.4 fL [facility] RDW 13.6 11.5 - 14.5 % [facility] RDW-STDEV 43.4 37.1 - 48.7 fL [facility] NEUTROPHILS 60 45 - 70 % [facility] LYMPHOCYTES 32 16 - 45 % [facility] MONOCYTES 6 3 - 13 % [facility] EOSINOPHILS 1 0 - 7 % [facility] BASOPHILS 0 0 - 2 % [facility] NEUTROPHIL ABSOLUTE 4.62 1.90 - 7.00 K/uL [facility] LYMPHOCYTE ABSOLUTE 2.41 0.70 - 4.50 K/uL [facility] MONOCYTE ABSOLUTE 0.47 0.10 - 1.30 K/uL [facility] EOSINOPHIL ABSOLUTE 0.10 0.00 - 0.70 K/uL [facility] BASOPHILS ABSOLUTE 0.03 0.00 - 0.20 K/uL [facility] Blood specimen (specimen) 01/20/2013 3:30 PM COMPRESSOR SERVICE TECHNICIAN 01/20/2013 3:34 PM COMPRESSOR SERVICE TECHNICIAN Amrit Giang MD HEMATOLOGY ORDERABLE S [facility] [id number] [address] [place] [address] documented in this encounter Visit Diagnoses Diagnosis Acute cholecystitis Hyperlipidemia Other and unspecified hyperlipidemia documented in this encounter Administered Medications Inactive Administered Medications - up to 3 most recent administrations Medication Order MAR Action Action Date Dose Rate Site piperacillin-tazobactam (ZOSYN) IVPB 3.375 Gram 3.375 Gram, IV, EVERY 6 HOURS, First dose on Nikky 01/20/13 at 1900, Until Discontinued, Routine New Bag 01/21/2013 1:39 PM COMPRESSOR SERVICE TECHNICIAN 3.375 Grams New Bag 01/21/2013 8:11 AM COMPRESSOR SERVICE TECHNICIAN 3.375 Grams New Bag 01/21/2013 2:31 AM COMPRESSOR SERVICE TECHNICIAN 3.375 Grams piperacillin-tazobactam (ZOSYN) IVPB 3.375 Gram 3.375 Gram, IV, EVERY 6 HOURS, First dose on Thu01/21/13 at 2000, Until Discontinued, Routine New Bag 01/22/2013 8:20 AM COMPRESSOR SERVICE TECHNICIAN 3.375 Grams New Bag 01/22/2013 3:59 AM COMPRESSOR SERVICE TECHNICIAN 3.375 Grams New Bag 01/21/2013 9:02 PM COMPRESSOR SERVICE TECHNICIAN 3.375 Grams sodium chloride 0.9% infusion IV, at 125 mL/hr, CONTINUOUS, Starting on Nikky 01/20/13 at 1745, Until Thu01/21/13 at 1852, Routine Rate Verify 01/21/2013 8:14 AM COMPRESSOR SERVICE TECHNICIAN 125 mL/hr New Bag 01/20/2013 6:16 PM COMPRESSOR SERVICE TECHNICIAN 125 mL/hr sodium chloride 0.9% infusion IV, at 75 mL/hr, CONTINUOUS, Starting on Thu01/21/13 at 1530, Until 01/22/13 at 1329, Routine, Post-op Phase II Rate Verify 01/22/2013 4:00 AM COMPRESSOR SERVICE TECHNICIAN 75 mL/hr Rate Verify 01/22/2013 3:00 AM COMPRESSOR SERVICE TECHNICIAN 75 mL/hr Rate Verify 01/22/2013 2:00 AM COMPRESSOR SERVICE TECHNICIAN 75 mL/hr documented in this encounter Active and Recently Administered Medications Times are shown in COMPRESSOR SERVICE TECHNICIAN. Scheduled Medication Order 01/20/2013 01/21/2013 01/22/2013 piperacillin-tazobacta m (ZOSYN) IVPB 3.375 Gram (CANCELED) 3.375 Gram, IV, EVERY 6 HOURS, First dose on Nikky 01/20/13 at 1900, Until Discontinued, Routine 9 (New Bag - Provider: Dana Gonzalez RN) 0231 (New Bag - Provider: Dana Gonzalez RN)0811 (New Bag - Provider: Arthur Zarate RN)1339 (New Bag - Provider: ABDULLAHI Tan)1500 (Not Given - Provider: Gabrielle Rodriguez RN - Reason: Clarify-Other (Comment)) piperacillin-tazobacta m (ZOSYN) IVPB 3.375 Gram (CANCELED) 3.375 Gram, IV, EVERY 6 HOURS, First dose on 01/21/13 at 2000, Until Discontinued, Routine 2102 (New Bag - Provider: Gabrielle Rodriguez RN) 0359 (New Bag - Provider: Gabrielle Rodriguez RN)0820 (New Bag - Provider: Hakeem Da Silva RN) Continuous Medication Order 01/20/2013 01/21/2013 01/22/2013 sodium chloride 0.9% infusion (CANCELED) IV, at 125 mL/hr, CONTINUOUS, Starting on Nikky 01/20/13 at 1745, Until 01/21/13 at 1852, Routine 1816 (New Bag - Provider: Nila Blanco, BRIANNA) 0814 (Rate Verify - Provider: Arthur Zarate RN) sodium chloride 0.9% infusion (CANCELED) IV, at 75 mL/hr, CONTINUOUS, Starting on 01/21/13 at 1530, Until 01/22/13 at 1329, Routine, Post-op Phase II 1847 (New Bag - Provider: Radha Mcdaniel RN)1900 (Rate Verify - Provider: Gabrielle Rodriguez RN)2000 (Rate Verify - Provider: Gabrielle Rodriguez RN)2100 (Rate Verify - Provider: Gabrielle Rodriguez RN)2200 (Rate Verify - Provider: Gabrielle Rodriguez RN)2300 (Rate Verify - Provider: Gabrielle Rodriguez RN) 0000 (Rate Verify - Provider: Gabrielle Rodriguez RN)0100 (Rate Verify - Provider: Gabrielle Rodriguez RN)0200 (Rate Verify - Provider: Gabrielle Rodriguez RN)0300 (Rate Verify - Provider: Gabrielle Rodriguez RN)0400 (Rate Verify - Provider: Gabrielle Rodriguez RN)0424 (Stopped - Provider: Gabrielle Anusic-Beganovic, RN - Comment: Pt. tolerating PO fluids.) PRN Medication Order 01/20/2013 01/21/2013 01/22/2013 bupivacaine-EPINEPHrine (SENSORCAINE-EPINEPHRINE) 0.25 %-1:200,000 injection (CANCELED) INTRA-PROCEDURE PRN, Starting on Thu01/21/13 at 1528, Until Thu01/21/13 at 1540, Routine, Intra-op 1528 (Given - Provider: Kamla Rowley MD) oxyCODONE-acetaminophen (PERCOCET) 5-325 mg per tablet 1 Tab 1 Tablet, Oral, EVERY 4 HOURS PRN, Starting on Thu01/21/13 at 1528, Until 01/22/13 at 1329, Pain, Moderate, For Pain Scale 4-6, Routine, Post-op Phase II sodium chloride 0.9 % irrigation irrigation (CANCELED) INTRA-PROCEDURE PRN, Starting on Thu01/21/13 at 1529, Until Thu01/21/13 at 1540, Routine, Intra-op 1529 (Given - Provider: Kamla Rowley MD) documented in this encounter Care Teams Family Service Worker Relationship Specialty Start Date End Date Amrit Giang MD PCP - General Family Practice 04/13/12 documented as of this encounter
--- OUTSIDE RECORDS SUMMARY | 2024-03-07 05:27 | XMS_ITS | Encounter Summary ---
Author Organization [facility] Address [address] [place] [address] Care Team Providers Care Single Spindle Screw Machine Operator Name Role Phone Amrit Giang MD Primary Care Provider [phone] Encounter Details Date Type Department Care Team (Late st Contact Info) Description 11/17/2013 Abstract [facility] [address] [facility] [address] [place] [address] Amrit Giang MD [address] [place] [address] [address] [place] [address] Social History Tobacco Use Types [...] on filedocumented in this encounter Care Teams Single Spindle Screw Machine Operator Relationship Specialty Start Date End Date Amrit Giang MD PCP - General Family Practice 04/13/12 documented as of this encounter
--- OUTSIDE RECORDS SUMMARY | 2024-03-07 05:27 | XMS_ITS | Encounter Summary ---
Author Organization [facility] Address [address] [place] [address] Care Team Providers Care Flag Signaler Name Role Phone Amrit Giang MD Primary Care Provider [phone] Encounter Details Date Type Department Care Team (Late st Contact Info) Description 01/26/2018 Orders Only [facility] [address] [facility] [address] [place] [address] Colleen Lara, OD [address] [place] [address] Social History Tobacco Use Types Packs/Day Years [...] Date/Time Associated Diagnosis Comments EYE EXAM Routine 01/19/2018 documented in this encounter Results * (ABNORMAL) EYE EXAM (01/19/2018) Colleen Lara OD [facility] documented in this encounter Visit Diagnoses Not on filedocumented in this encounter Care Teams Flag Signaler Relationship Specialty Start Date End Date Amrit Giang MD PCP - General Family Practice 04/13/12 documented as of this encounter
--- OUTSIDE RECORDS SUMMARY | 2024-03-07 05:27 | XMS_ITS | Encounter Summary ---
Author Organization [facility] Address [address] [place] [address] Care Team Providers Care Supplier Manager Name Role Phone Amrit Giang MD Primary Care Provider [phone] Reason for Visit * Auth/Cert Specialty Diagnoses / Procedures Referred By Contzaid t Referred To Contact Gastroenterology Diagnoses Colon cancer screening Colon cancer screening [Z12.11] Procedures COLONOSCOPY [facility] [address] [place] [address] Referral ID Status Reason Start Date Expiration Date Visits Re quested Visits Authorized [id number] 1 1 Encounter Details Date Type Department Care Team (Late st Contact Info) Description 11/20/2016 1:47 PM CDT Anesthesia Event [facility] S [facility] [address] [place] [address] Debi Oconnell MD [address] [place] [address] Anesthesia Record Procedure Summary Procedure Name Responsible Anesthesiologist Anesthesia Start Time Anesthesia Stop Time COLONOSCOPY (Anus) Debi Oconnell MD 11/20/16 1347 11/20/16 1432 Events Date Time Event Comment 11/20/2016 1306 1347 An Start 1347 An Start Data 1348 Pre-Induction Immediate pre- induction anesthetic assessment performed. Vital signs as noted on graphic. 1350 An Induction 1351 Anesthesia Ready 1410 an pedro now 1426 an stop data 1432 An Stop Meds Name Total lidocaine (XYLOCAINE) 2% injection 60 mg propofol (DIPRIVAN) 10??mg/mL injection 490 mg glycopyrrolate (ROBINUL) 0.4 mg/2 mL (0. 2 mg/mL) syringe 0.4 mg atropine 1 mg/2.5 mL (0.4 mg/mL) syringe 0.2 mg lactated Ringers solution 800 mL * Agents Name O2 Inspired O2 N2O Inspired N2O O2 * Blood No blood administrations on file. Lines, Drains, and Airways Type Details Placement Removal Peripheral IV Pre-Hospital Start: No; Orientation: Left; Location: Hand; Device: Angiocath; Gauge: 20 gauge; Needle Length: 1 in length; Insertion Attempts: 1; Patient Tolerance: tolerated well 11/20/16 1306 by Nguyen Thibodeaux RN Supraglottic Airway Type: nasal cannula; Confirmation: satisfactory chest rise, SAO2, end tidal CO2 11/20/16 1348 by Vesta Loja AA-C 11/21/16 0422 by PROVIDER, DISCHARGE PATIENT documented in this encounter Social History Tobacco Use Types Packs/Day Years Used Date Smoking Tobacco: Never Smokeless Tobacco: Never Alcohol Use Standard Drinks/Week Comments Yes 1.7 (1 standard drink = 0.6 oz p ure alcohol) Sex and Gender Information Value Date Recorded Sex Assigned at Not on file Gender Identity Not on file Sexual Orientation Not on file documented as of this encounter OR Notes * Anesthesia Postprocedure Evaluation - Vesta Loja AA-C - 11/20/2016 2:40 PM CDT Post Anesthesia Evaluation Vitals: BP 102/69 (BP Location: Right arm, Patient Position (BP): Sitting) Pulse 60 Temp 36.3 ??C (Temporal) Resp 16 Ht 6' (1.829 m) Wt 119.3 kg (263 lb) SpO2 98% BMI 35.67 kg/m2 Pain Rating: Nausea/Vomiting: no nausea and no vomiting Post-Op hydration: well hydrated Respiratory function: no respiratory symptoms Airway patency: normal Cardiovascular function: Normal - Regular rate and rhythm Mental status, LOC: 0=alert; keenly responsive Patient participated in evaluation: yes Unanticipated Events: no ABDULLAHI Momin * Anesthesia Handoff - Vesta Loja AA-C - 11/20/2016 2:31 PM CDT Post-Anesthetic transfer of care report elements to appropriate post-anesthesia recovery environment completed in accordance with procedure. I completed my handoff to the receiving nurse during which we: 1. Identified the patient 2. Identified the responsible provider 3. Reviewed the pertinent medical history 4. Discussed the surgical course 5. Reviewed intra-op anesthesia management and issues during anesthesia 6. Set expectations for post-procedure period 7. Allowed opportunity for questions and acknowledgement of understanding. Vital Signs: BP: 97/66 (11/20/2016 2:30 PM) Pulse: 65 (11/20/2016 2:30 PM) Temp: 36.3 ??C (11/20/2016 2:30 PM) Resp: 18 (11/20/2016 2:30 PM) SpO2: 98 % (11/20/2016 2:30 PM) 2:31 PM ABDULLAHI Momin * Anesthesia Preprocedure Evaluation - Debi Oconnell MD - 11/20/2016 1:04 PM CDT Anesthesia Evaluation Patient summary reviewed Airway Mallampati: II Neck ROM: full Dental Pulmonary - normal exam (+) sleep apnea, Cardiovascular - normal exam Neuro/Psych GI/Hepatic/Renal Endo/Other Abdominal Anesthesia History GI Lab Pre-Anesthesia Evaluation - Long Form 11/20/2016 1:06 PM Name: Darrel Montenegro Age: 55 y.o. Sex: male CSN: [id number] Procedure: Procedure(s): COLONOSCOPY Surgeons/Assistants: Surgeon(s) and Role: * Cristian Lara MD - Primary No Known Allergies Prescriptions Prior to Admission Medication Sig Dispense Refill Last Dose ??? Bsjlo-2-EQW-EPA-Fish Oil 300-1,000 mg Capsule Take 2 Caps by mouth daily. 30 Cap 3 Past Week atUnknown time ??? UBIDECARENONE (COQ-10 ORAL) Take by mouth daily. Past Week at Unknown time ??? MULTIVITAMIN W-MINERALS/LUTEIN (CENTRUM SILVER ORAL) Take by mouth daily. Past Week at Unknown time Current Facility-Administered Medications Medication Dose Route Frequency Provider Last Rate Last Dose ??? lactated Ringers solution IV Pre-Proc Continuous Cristian Lara MD Patient Active Problem List Diagnosis Date [...] lobe ??? HX TONSILLECTOMY high school ??? [place] LAP,CHOLECYSTECTOMY 01/21/2013 CHOLECYSTECTOMY LAPAROSCOPIC performed by Corina Medina MD at [facility] ??? [place] REPAIR UMBILICAL ROBEL,5+Y/O,REDUC 01/21/2013 HERNIA UMBILICAL REPAIR performed by Corina Medina MD at [facility] Social History Substance Use Topics ??? Smoking [...] Neg Hx ??? Ovarian Cancer Neg Hx Previous Anesthesia Problems/Concerns: No anesthesia problems/complications Review of Systems Cardiovascular: negative Respiratory: LIS Gastroenterology: negative Bowel Prep:Yes PHYSICAL EXAM BP (!) 165/85 (BP Location: Right arm, Patient Position (BP): Sitting) Pulse (!) 59 Temp 36.3 ??C (Temporal) Resp 18 Ht 6' (1.829 m) Wt 119.3 kg (263 lb) SpO2 99% BMI 35.67 kg/m2 Weight: Weight: 119.3 kg (263 lb) (11/20/16 1303) Height: Ht Readings from Last 1 Encounters: 11/20/16 6' (1.829 m) BMI: Body mass index is 35.67 kg/(m^2). Airway: normal range of motion: Airway Class: II (soft palate, uvula, fauces visible); None Lungs: clear to auscultation bilaterally, normal respiratory effort Heart: regular rate and rhythm, S1, S2 normal, no murmur, click, rub or gallop Neuro: alert, oriented x 3, no defects noted in general exam. Vascular Access: None LABS Lab Results Component Value Date/Time WBC 9.8 01/22/2013 04:15 AM WBC 5.5 04/13/2012 12:00 PM HEMOGLOBIN 13.8 01/22/2013 04:15 AM HEMATOCRIT 39.4 (L) 01/22/2013 04:15 AM HEMATOCRIT 47.8 04/13/2012 12:00 PM PLATELETS 236 01/22/2013 04:15 AM MCV 87.9 01/22/2013 04:15 AM Lab Results Component Value Date/Time SODIUM 141 10/15/2015 08:37 AM POTASSIUM 4.1 10/15/2015 08:37 AM CHLORIDE 105 10/15/2015 08:37 AM CO2 25 10/15/2015 08:37 AM CALCIUM 9.8 10/15/2015 08:37 AM BUN 17 10/15/2015 08:37 AM CREATININE 1.30 10/15/2015 08:37 AM GLUCOSE 100 (H) 10/15/2015 08:37 AM BUN/CREAT RATIO NOT APPLICABLE 10/15/2015 08:37 AM Lab Results Component Value Date/Time INR 1.0 01/20/2013 05:52 PM PROTIME 13.1 01/20/2013 05:52 PM No results found for: HCGURPOC, HCGQUALUR, HCGQUAL, HCGQUANT, HCGINTACT No results found for: GLUCPOC EKG: EKG not indicated today Other Studies/Considerations: None Postprocedure pain management discussed yes Smoking/Tobacco Counseling: None Recommendations: None ASA Physical Status: ASA 2 - Patient with mild systemic disease with no functional limitations I have seen and examined this patient and confirm that all data is current and accurate. Yes Choice of Anesthesia/Anesthesia Plan: Proceed, General and Routine Monitoring I have discussed the anesthetic options and the risks/benefits with the patient/family. Questions have been solicited and answered. Yes Debi Oconnell MD Anesthesia Plan ASA 2 MAC Intravenous induction NPO status > 8 hours Anesthetic plan and risks discussed with Patient. documented in this encounter Plan of Treatment Not on file documented as of this encounter Visit Diagnoses Not on filedocumented in this encounter Administered Medications Inactive Administered Medications - up to 3 most recent administrations Medication Order MAR Action Action Date Dose Rate Site atropine in 0.9% sodium chloride 1 mg/2.5 mL (0.4 mg/mL) injection INTRA-PROCEDURE PRN, Starting on Nikky 11/20/16 at 1401, Until Nikky 11/20/16 at 1432, Routine, Anesthesia Intra-op Given 11/20/2016 2:01 PM CDT 0.2 mg glycopyrrolate (ROBINUL) injection INTRA-PROCEDURE PRN, Starting on Nikky 11/20/16 at 1355, Until Nikky 11/20/16 at 1432, Routine, Anesthesia Intra-op Given 11/20/2016 1:57 PM CDT 0.2 mg Given 11/20/2016 1:55 PM CDT 0.2 mg lidocaine 2 % (XYLOCAINE) injection INTRA-PROCEDURE PRN, Starting on Nikky 11/20/16 at 1350, Until Nikky 11/20/16 at 1432, Other (See Comment), Routine, Anesthesia Intra-op Given 11/20/2016 1:50 PM CDT 60 mg propofol (DIPRIVAN) injection INTRA-PROCEDURE PRN, Starting on Nikky 11/20/16 at 1350, Until Nikky 11/20/16 at 1432, Anesthesia Intra-op Given 11/20/2016 2:20 PM CDT 20 mg Given 11/20/2016 2:19 PM CDT 10 mg Given 11/20/2016 2:16 PM CDT 20 mg documented in this encounter Care Teams Supplier Manager Relationship Specialty Start Date End Date Amrit Giang MD PCP - General Family Practice 04/13/12 documented as of this encounter
--- OUTSIDE RECORDS SUMMARY | 2024-03-07 05:28 | XMS_ITS | Encounter Summary ---
Author Organization [facility] Address [address] [place] [address] Care Team Providers Care Surgical Nurse Name Role Phone Amrit Giang MD Primary Care Provider [phone] Reason for Visit * Reason Onset Date Comments Results 04/23/2012 Encounter Details Date Type Department Care Team (Late st Contact Info) Description 04/23/2012 Telephone [facility] [address] [facility] [address] [place] [address] Amrit Giang MD [address] [place] [address] [address] [place] [address] Results Social History Tobacco Use [...] encounter Miscellaneous Notes * Telephone Encounter - Peggy Morgan - 04/23/2012 12:08 PM BUILDING SERVICEMAN Pt called for results gave them to him also faxed them to [phone] DING SERVICEMAN documented in this encounter Plan of Treatment Not on file documented as of this encounter Visit Diagnoses Not on filedocumented in this encounter Care Teams Surgical Nurse Relationship Specialty Start Date End Date Amrit Giang MD PCP - General Family Practice 04/13/12 documented as of this encounter
--- OUTSIDE RECORDS SUMMARY | 2024-03-07 05:28 | XMS_ITS | Encounter Summary ---
Author Organization [facility] Address [address] [place] [address] Care Team Providers Care Filler Shredder Helper Name Role Phone Amrit Giang MD Primary Care Provider [phone] Reason for Visit * Reason Onset Date Comments Results 04/20/2012 Encounter Details Date Type Department Care Team (Late st Contact Info) Description 04/20/2012 Telephone [facility] [address] [facility] [address] [place] [address] Amrit Giang MD [address] [facility] [address] [place] [address] Results Social History Tobacco Use [...] Miscellaneous Notes * Telephone Encounter - Cece Crockett - 04/29/2012 10:46 AM CST He is notified of lab results per result note documentation. N RESOURCES BENEFITS ADMINISTRATOR * Telephone Encounter - Cece Crockett - 04/29/2012 10:00 AM CST I am unable to reach him by phone. I have left a message on his recorder to call the office. N RESOURCES BENEFITS ADMINISTRATOR * Telephone Encounter - Cece Crockett - 04/21/2012 4:38 PM CST I am unable to reach him by phone. I have left a message on his recorder to call the office. N RESOURCES BENEFITS ADMINISTRATOR * Telephone Encounter - Amrit Giang MD - 04/21/2012 2:52 PM CST UA negative, no culture indicated. PSA 1.2 WNL TSH WNL CBC WNL CMP WNL (slight elevation bilirubin OK) Testosterone level OK Lab Results Component Value Date CHOLESTEROL 223* 04/13/2012 HDL 48 04/13/2012 LDL CALCULATED 125* 04/13/2012 TRIGLYCERIDE 252* 04/13/2012 Increase fruits and vegetables. Decrease fried foods, fast foods, and fatty foods. N RESOURCES BENEFITS ADMINISTRATOR * Telephone Encounter - Charisse Ambrocio - 04/20/2012 11:32 AM CST Patient would like his recent lab results. He also wants them faxed to him at [phone] N RESOURCES BENEFITS ADMINISTRATOR documented in this encounter Plan of Treatment Not on file documented as of this encounter Visit Diagnoses Not on filedocumented in this encounter Care Teams Filler Shredder Helper Relationship Specialty Start Date End Date Amrit Giang MD PCP - General Family Practice 04/13/12 documented as of this encounter
--- OUTSIDE RECORDS SUMMARY | 2024-03-07 05:28 | XMS_ITS | Encounter Summary ---
Author Organization [facility] Address [address] [place] [address] Care Team Providers Care Banquet Server Name Role Phone Amrit Giang MD Primary Care Provider [phone] Reason for Visit * Reason Onset Date Comments Question 01/20/2013 Encounter Details Date Type Department Care Team (Late st Contact Info) Description 01/20/2013 Telephone [facility] [address] [facility] [address] [place] [address] Amrit Giang MD [address] [facility] [address] [place] [address] Question Social History Tobacco Use [...] encounter Miscellaneous Notes * Telephone Encounter - Amrit Giang MD - 01/20/2013 12:07 PM CHILDCARE ATTENDANT Given information. Acute cholecystitis requires surgery and have consulted with Dr. Estrada. Waiting for room. Ate oatmeal for breakfast, needs to be NPO. Done. Hospital to call when room ready. DCARE ATTENDANT * Telephone Encounter - Coreen Giang - 01/20/2013 8:37 AM CST Would like to discuss surgeon choices. Conor vs Natalie and when to schedule surgery. He thinks heshould be directly admitted today. Please advise. DCARE ATTENDANT documented in this encounter Plan of Treatment Not on file documented as of this encounter Visit Diagnoses Not on filedocumented in this encounter Care Teams Banquet Server Relationship Specialty Start Date End Date Amrit Giang MD PCP - General Family Practice 04/13/12 documented as of this encounter
--- OUTSIDE RECORDS SUMMARY | 2024-03-07 05:28 | XMS_ITS | Encounter Summary ---
Author Organization [facility] Address [address] [place] [address] Care Team Providers Care Staff Mine Warfare Officer Name Role Phone Amrit Giang MD Primary Care Provider [phone] Reason for Visit * Reason Onset Date Comments Abdominal Pain 01/19/2013 Encounter Details Date Type Department Care Team (Late st Contact Info) Description 01/19/2013 Telephone [facility] [place] [address] [facility] [address] [place] [address] Britney Schaeffer DO [address] [facility] [address] [place] [address] Abdominal Pain Social History Tobacco Use Types Packs/Day Years [...] Miscellaneous Notes * Telephone Encounter - Britney Schaeffer DO - 01/19/2013 5:[address] results. Called pt to discuss and notify of likely acute cholecystitis and recommend hospitalization. See phone encounter from Dr. Giang and David Daly in chart as well. Unable to reach pt but LMOR. Apparently plans to via direct admit tomorrow. Advised on message that if he developsfever, uncontrolled pain, inabilitiy to keep fluids down, should go to [facility]. UER SPRAYER documented in this encounter Plan of Treatment Not on file documented as of this encounter Visit Diagnoses Not on filedocumented in this encounter Care Teams Staff Mine Warfare Officer Relationship Specialty Start Date End Date Amrit Giang MD PCP - General Family Practice 04/13/12 documented as of this encounter
--- OUTSIDE RECORDS SUMMARY | 2024-03-07 05:28 | XMS_ITS | Encounter Summary ---
Author Organization [facility] Address [address] [place] [address] Care Team Providers Care Alcohol And Drug Counselor Name Role Phone Amrit Giang MD Primary Care Provider [phone] Reason for Visit * Reason Onset Date Comments Colonoscopy 11/01/2012 Encounter Details Date Type Department Care Team (Late st Contact Info) Description 11/01/2012 Telephone [facility] GASTROENTEROLOGY [address] [facility] [address] [place] [address] Cristian Lara MD NO ADDRESS ON FILE Colonoscopy Social History Tobacco Use Types Packs/Day Years [...] encounter Miscellaneous Notes * Telephone Encounter - Sameera Rowley - 11/01/2012 4:18 PM CDT Colonoscopy set for 01/24/13 @ 11:30 pt will get prep from girlfriend or call if needed another copy. documented in this encounter Plan of Treatment Not on file documented as of this encounter Visit Diagnoses Not on filedocumented in this encounter Care Teams Alcohol And Drug Counselor Relationship Specialty Start Date End Date Amrit Giang MD PCP - General Family Practice 04/13/12 documented as of this encounter
--- OUTSIDE RECORDS SUMMARY | 2024-03-07 05:28 | XMS_ITS | Encounter Summary ---
Author Organization [facility] Address [address] [place] [address] Care Team Providers Care Senior Ux Designer Name Role Phone Amrit Giang MD Primary Care Provider [phone] Reason for Referral * Outpatient Services (Routine) - Closed Specialty Diagnoses / Procedures Referred By Contac t Referred To Contact CT Scan Diagnoses RUQ abdominal pain Nausea alone Procedures CT ABDOMEN PELVIS W CONTRAST Britney Schaeffer DO [address] [place] [address] Referral ID Status Reason Start Date Expiration Date V isits Requested Visits Authorized [id number] Closed [facility] 01/18/2013 02/18/2013 1 1 F EDITOR Reason for Visit * Outpatient Services (Routine) - Closed Specialty Diagnoses / Procedures Referred By Contac t Referred To Contact CT Scan Diagnoses RUQ abdominal pain Nausea alone Procedures CT ABDOMEN PELVIS W CONTRAST Britney Schaeffer DO [address] [place] [address] Referral ID Status Reason Start Date Expiration Date V isits Requested Visits Authorized [id number] Closed [facility] 01/18/2013 02/18/2013 1 1 Encounter Details Date Type Department Care Team (Latest Contact Info) Description 01/19/2013 2:20 PM STAFF EDITOR - 01/19/2013 11:59 PM STAFF EDITOR [facility] [place] [address] [place] [address] Britney Schaeffer DO [address] [place] [address] Discharge Disposition: Home or Self Care Social [...] on file documented as of this encounter Medications at Time of Discharge Medication Sig Dispensed Refills Start Date End Date Vnxyi-5-HKK-EPA-Fish Oil 300-1,000 mg Capsule Take 2 Caps by mouth daily. 30 Cap 3 04/13/2012 UBIDECARENONE (COQ-10 ORAL) Take by mouth daily. MULTIVITAMIN W-MINERALS/LUTEIN (CENTRUM SILVER ORAL) Take by mouth daily. OMEGA-3/DHA/EPA/FISH OIL (OMEGA-3 FISH OIL ORAL) Take by mouth daily. 01/20/2013 documented as of this encounter Plan of Treatment Not on file documented as of this encounter Procedures Procedure Name Priority Date/Time Associated Diagnosis Comments CT ABDOMEN PELVIS W CONTRAST Routine 01/19/2013 4:07 PM STAFF EDITOR RUQ abdominal pain Nausea alone documented in this encounter Results * CT ABDOMEN PELVIS W CONTRAST (01/19/2013 4:07 PM STAFF EDITOR) Anatomical Region Laterality Modality Abdomen Computed Tomogra phy 01/19/2013 3:59 PM STAFF EDITOR Impressions 01/20/2013 9:26 AM STAFF EDITOR IMPRESSION: Abnormal edematous thickening of the gallbladder wall with moderate gallbladder dilatation possibly with some tiny calculi believed to represent acute cholecystitis. The finding was promptly communicated to Dr. Schaeffer's office staff at the time of interpretation as well as a message placed on the [facility] system. Dictated from [facility] A Red-Critical test result notification was sent via the [facility] service, 4:41:51 PM, 01/19/2013, [facility] Message ID [id number]. Narrative 01/20/2013 9:[address] ABDOMEN AND PELVIS WITH IV CONTRAST 01/19/2013 Clinical history: Acute right upper quadrant abdominal pain, nausea CT imaging of the abdomen and pelvis was performed using helical technique and 5 mm collimation with 1.25 mm axial reconstructions and coronal reformatted images following oral and IV contrast with IV administration of 125 cc of Optiray-320 contrast. The pleural and subdiaphragmatic spaces are clear. The liver is normal in size, outline and density without defect. There is moderate dilatation of the gallbladder and what appears to be significant generalized edematous thickening of the gallbladder wall possibly with some tiny stones also present within the gallbladder. Gross inflammation in the surrounding pericholecystic fat is not seen but the findings are believed to represent acute cholecystitis. No bile duct dilatation is seen. The spleen, pancreas, adrenal glands and both kidneys appear normal. The abdominal and pelvic retroperitoneal spaces are clear. Mesenteric and intraperitoneal contents appear normal. Procedure Note Derrick Quintana MD - 01/20/2013 CT ABDOMEN AND PELVIS WITH IV CONTRAST 01/19/2013 Clinical history: Acute right upper quadrant abdominal pain, nausea CT imaging of the abdomen and pelvis was performed using helical technique and 5 mm collimation with 1.25 mm axial reconstructions and coronal reformatted images following oral and IV contrast with IV administration of 125 cc of Optiray-320 contrast. The pleural and subdiaphragmatic spaces are clear. The liver is normal in size, outline and density without defect. There is moderate dilatation of the gallbladder and what appears to be significant generalized edematous thickening of the gallbladder wall possibly with some tiny stones also present within the gallbladder. Gross inflammation in the surrounding pericholecystic fat is not seen but the findings are believed to represent acute cholecystitis. No bile duct dilatation is seen. The spleen, pancreas, adrenal glands and both kidneys appear normal. The abdominal and pelvic retroperitoneal spaces are clear. Mesenteric and intraperitoneal contents appear normal. IMPRESSION IMPRESSION: Abnormal edematous thickening of the gallbladder wall with moderate gallbladder dilatation possibly with some tiny calculi believed to represent acute cholecystitis. The finding was promptly communicated to Dr. Schaeffer's office staff at the time of interpretation as well as a message placed on the [facility] system. Dictated from [facility] A Red-Critical test result notification was sent via the [facility] service, 4:41:51 PM, 01/19/2013, [facility] Message ID [id number]. Britney Schaeffer DO CT ORDERABLES documented in this encounter Visit Diagnoses Diagnosis RUQ abdominal pain Abdominal pain, right upper quadrant Nausea alone documented in this encounter Administered Medications Inactive Administered Medications - up to 3 most recent administrations Medication Order MAR Action Action Date Dose Rate Site iohexol (OMNIPAQUE) 240 mg/mL oral solution 50 mL 50 mL, Oral, PRE-PROCEDURE ONCE, 1 dose, Starting on Thu01/19/13 at 1607, Until Thu01/19/13 at 1607, Routine Given 01/19/2013 4:07 PM STAFF EDITOR 50 mL ioversol (OPTIRAY 320) 320 mg iodine/mL syringe 125 mL 125 mL, IV, INTRA-PROCEDURE ONCE, 1 dose, Starting on Thu01/19/13 at 1607, Until Thu01/19/13 at 1607 Given 01/19/2013 4:07 PM STAFF EDITOR 125 mL documented in this encounter Care Teams Senior Ux Designer Relationship Specialty Start Date End Date Amrit Giang MD PCP - General Family Practice 04/13/12 documented as of this encounter
--- OUTSIDE RECORDS SUMMARY | 2024-03-07 05:28 | XMS_ITS | Encounter Summary ---
Author Organization [facility] Address [address] [place] [address] Care Team Providers Care Cook Soup Name Role Phone Amrit Giang MD Primary Care Provider [phone] Reason for Visit * Auth/Cert - Closed Specialty Diagnoses / Procedures Referred By Contac t Referred To Contact General Surgery Diagnoses choleycystitis Procedures CHOLECYSTECTOMY LAPAROSCOPIC [facility] [address] [place] [address] Referral ID Status Reason Start Date Expiration Date Visits Re quested Visits Authorized [id number] Closed 1 1 Encounter Details Date Type Department Care Team (Late st Contact Info) Description 01/21/2013 2:27 PM WATER PUMP SERVICER - 01/21/2013 4:27 PM WATER PUMP SERVICER Surgery [facility] Operating Room [address] [place] [address] [place] [id number] [address] CHOLECYSTECTOMY LAPAROSCOPIC Surgery Details Date/Time Status Location OR Service Patient Class Case Class Case Type Trauma Case? 01/21/2013 2:27 PM Posted STLO OR MAIN OR General Surgery Inpatient No Panel 1 Procedure LRB Anes Op Region Wound Class Comments CHOLECYSTECTOMY LAPAROSCOPIC N/A General Abdomen C lean Contaminated-II HERNIA UMBILICAL REPAIR N/A General Abdomen Clean- I Surgeon Surgeon Role Service Panel Denise Rowley MD Primary General Surgery 1 documented in this encounter Social History [...] Sign Reading Time Taken Comments Blood Pressure 136/84 01/21/2013 4:25 PM WATER PUMP SERVICER Pulse 59 01/21/2013 4:25 PM WATER PUMP SERVICER Temperature 36.8 ??C (98.3 ??F) 01/21/2013 3:44 PM CS T Respiratory Rate 18 01/21/2013 4:25 PM WATER PUMP SERVICER Oxygen Saturation 94% 01/21/2013 4:07 PM WATER PUMP SERVICER Inhaled Oxygen Concentration - - Weight 117.9 kg (260 lb) 01/20/2013 6:00 PM WATER PUMP SERVICER Height 182.9 cm (6') 01/20/2013 6:00 PM WATER PUMP SERVICER Body Mass Index 35.26 01/20/2013 6:00 PM WATER PUMP SERVICER documented in this encounter Discharge Summaries * [...] ORAL Take by mouth daily. Refills: 0 Mmnpx-1-BCI-EPA-Fish Oil 300-1,000 mg Cap Take 2 Caps [...] Signed: Amrit Giang MD 01/22/2013, 9:16 AM R PUMP SERVICER documented in this encounter Discharge Instructions * Discharge Instructions* Denise Rowley MD - 01/21/2013 1:34 PM WATER PUMP SERVICER [place], [place] Discharge Instructions Laparoscopic Cholecystectomy ACTIVITY: ??? [...] MD, FACS in approximately 2 weeks. Call [phone] to schedule day and time of the appointment. ??? If you have any questions, please do not hesitate to call my office. [facility] [address], [address] [place] [address] Denise Rowley MD, [facility] Patient Instructions Cholecystectomy: What to Expect at [...] food bags, a child, or a vacuum swimming pool cleaner. Avoid strenuous activities, such as biking, jogging, [...] taking a prescription pain medicine, take an dmeh-kqh-kiybemv medicine such as acetaminophen (Tylenol), ibuprofen (Advil, [...] Where can you learn more? Go to www.EatStreet.net Enter F357 in the search box to learn more about Cholecystectomy: What to Expect at Home . ?? [id number] [employer]. Care instructions adapted under license by [employer] [facility] ([facility]). [facility] disclaims any warranty or liability for your use of this information. This information is not intended to represent the ethical and synagogue beliefs of [facility]. This care instruction is for use with your licensed healthcare professional. If you have questions about a medical condition or this instruction, always ask your healthcare professional. [employer] disclaims anywarranty or liability for your use of this information. R PUMP SERVICER documented in this encounter Medications at Time of Discharge Medication Sig Dispensed Refills Start Date End Date Ltbze-8-VXF-EPA-Fish Oil 300-1,000 mg Capsule Take 2 Caps [...] [DISCONTINUED] sodium chloride 0.9% infusion IV Continuous Denise [...] per usual scheduleas this was surgical admission. R PUMP SERVICER * Denise Rowley MD - 01/22/2013 7:24 AM CST 01/22/2013 Progress Note, [place], [place] Impression: 1. Pt is POD# 1 [...] Net 275 ml Denise Rowley MD, FACS R PUMP SERVICER * Amrit Giang MD - 01/21/2013 5:53 [...] to results noted above. Discussed with consultants asappropriate. He agrees with present treatment plan. Expect home in am. R PUMP SERVICER * Denise Rowley MD - 01/20/2013 5:35 PM CST Surgery consult requested this AM, but patient not admitted to [facility] until late this afternoon. Chart/CT reviewed on [facility]. Will need repeat labs, EKG, and GB [...] the surgeon oncall. Denise Rowley MD, FACS R PUMP SERVICER documented in this encounter H&P Notes * [...] to admission Medication Sig Dispense Refill ??? Yxibk-6-FRF-EPA-Fish Oil 300-1,000 mg Capsule Take 2 Caps [...] Age of Onset ??? Heart Disease Father [place] ??? High Cholesterol Father ??? High Cholesterol [...] CBC, and amylase. Start Zosyn IV. IVF. R PUMP SERVICER documented in this encounter Consult Notes * Denise Rowley MD - 01/21/2013 11:07 AM CSTAssociated Order(s): IP CONSULT TO GENERAL SURGERY [place], [place] General Surgery Consult Patient: Andrew Montenegro [...] to admission Medication Sig Dispense Refill ??? Puopg-5-RUO-EPA-Fish Oil 300-1,000 mg Capsule Take 2 Caps [...] Denise Rowley MD 3.375 Gram at 01/21/13 0811 ??? hydromorPHONE (DILAUDID) 1 mg/mL injection 1 [...] Age of Onset ??? Heart Disease Father [place] ??? High Cholesterol Father ??? High Cholesterol [...] Signed: Denise Rowley MD 01/21/2013, 11:07 AM R PUMP SERVICER documented in this encounter OR Notes * OR Anesthesia - Ramon Shanique, CRNA - 01/22/2013 9:11 AM CST 01/22/2013 10:10 AM Andrew Montenegro No apparent Anesthesia related complications Shanique Navarro CRNA R PUMP SERVICER * Queenie-OP - Tonya Bernard RN - 01/21/2013 6:31 PM CST To [phone] / personal belongingsin former room 469 to be packed up and sent to 421 per Gloria on 4 M/S R PUMP SERVICER * OR Anesthesia - Rodney Bah MD - 01/21/2013 2:00 PM CST Pre-Anesthesia Evaluation - Long Form 01/21/2013 2:00 PM Name: Andrew Montenegro Age: 52 y.o. Sex: male CSN: [id number] Procedure: Procedure(s): CHOLECYSTECTOMY LAPAROSCOPIC Surgeons/Assistants: Surgeon(s) and Role: * Denise Rowley MD - Primary No Known Allergies Prescriptions prior to admission Medication Sig Dispense Refill ??? Okwga-4-FCM-EPA-Fish Oil 300-1,000 mg Capsule Take 2 Caps [...] Age of Onset ??? Heart Disease Father [place] ??? High Cholesterol Father ??? High Cholesterol [...] yes Smoking/Tobacco Counseling: None Recommendations: Nausea prophylaxis [facility] Center report reviewed. No interval changes in [...] can be reached during the day at [phone] If no answer call [phone] R PUMP SERVICER * Operative Report - Denise Rowley MD - 01/21/2013 1:34 PM CST Operative Report : [place], [place] Patient: Andrew Montenegro / 52 y.o. / male : 1960 Date: 01/21/2013 [facility]: [id number] Preoperative Diagnosis: acute cholecystitis Postoperative Diagnosis: Same Procedure Performed: Laparoscopic Cholecystectomy Incarcerated umbilical hernia repair Surgeon: Denise Rowley MD, FACS Surgical Staff: Family Dentist: Alesha Ness RN; Aury Mariscal RN Scrub: Hakeem Garcia Assistant: Erum Cabrera RN Anesthesia: General Estimated Blood [...] good condition having tolerated the procedure well. Denise Rowley MD, FACS R PUMP SERVICER * OR Anesthesia - Jimmy Huff, AA - 01/20/2013 6:28 PM CST Pre-Anesthesia Evaluation - Short Form 01/20/2013 6:29 PM Name: Andrew Montenegro Age: 52 y.o. Sex: male CSN: [id number] Procedure: Procedure(s): CHOLECYSTECTOMY LAPAROSCOPIC Surgeons/Assistants: Surgeon(s) and Role: * Denise Rowley MD - Primary No Known Allergies Prescriptions prior to admission Medication Sig Dispense Refill ??? Nuvue-5-NYS-EPA-Fish Oil 300-1,000 mg Capsule Take 2 Caps [...] mg Oral q 4 hour PRN Amrit Ginag MD ??? HYDROcodone-acetaminophen (NORCO) 5-325 mg per [...] Continuous Denise Rowley MD 125 mL/hr at 01/20/136 ??? piperacillin-tazobactam (ZOSYN) IVPB 3.375 Gram 3.375 [...] Age of Onset ??? Heart Disease Father [place] ??? High Cholesterol Father ??? High Cholesterol [...] well as a message placed on the [employer] system. Risks/Alternatives discussed. Questions solicited and answered. Yes Postop pain management discussed yes Smoking/Tobacco Counseling: None Recommendations: None I have discussed the anesthetic options and the risks/benefits with the patient/family. Questions have been solicited and answered. Yes JONES Jon R PUMP SERVICER documented in this encounter Miscellaneous Notes * Care Plan - Hakeem Da Silva RN - 01/22/2013 11:10 AM CST Problem: General Plan of Care (Adult, Obstetrics) Goal: Individualization/Patient-Specific Goal (Adult, Obstetrics) The patient and/or their sales representative electric service will achieve their patient-specific goals related to [...] given andunderstood. Patient transported home by spouse R PUMP SERVICER * Care Plan - Rebekah Beal RN [...] pain/comfort utilizing verbal/nonverbal pain scales; assess culturalor synagogue indicators attached to pain; administer pain medications as prescribed; utilize non-pharmacologic pain control and comfort measures Expected Outcome: Patient demonstrates and reports adequate pain control Outcome Met: denies any pain R PUMP SERVICER * Care Plan - Dana Gonzalez RN - 01/21/2013 5:53 AM CST Problem: General Plan of Care (Adult, Obstetrics) Goal: Individualization/Patient-Specific Goal (Adult, Obstetrics) The patient and/or their sales representative electric service will achieve their patient-specific goals related to the plan of care. The patient-specific goals include: Andrew will be discharged with tolerable pain control and relief of nausea. Outcome: Gladys Rojo had an uneventful night. He has been NPO. He is voiding without complaint. He is up ad channing.He denies any pain and nausea. He slept between care. R PUMP SERVICER documented in this encounter Plan of Treatment Not on file documented as of this encounter Procedures Procedure Name Priority Date/Time Associated Diagnosis Comments CBC WITH DIFFERENTIAL Routine 01/22/2013 4:15 AM WATER PUMP SERVICER LIPASE Routine 01/22/2013 4:15 AM WATER PUMP SERVICER COMPREHENSIVE METABOLIC PANEL Routine 01/22/2013 4:15 AM WATER PUMP SERVICER PATHOLOGY Routine 01/21/2013 5:00 PM WATER PUMP SERVICER EKG 12-LEAD Routine 01/21/2013 4:14 PM WATER PUMP SERVICER HERNIA UMBILICAL REPAIR 01/22/20 13 12:58 PM WATER PUMP SERVICER CHOLECYSTECTOMY LAPAROSCOPIC 01/21/2013 12:58 PM WATER PUMP SERVICER CBC WITH DIFFERENTIAL Routine 01/21/2013 4:38 AM WATER PUMP SERVICER LIPASE Routine 01/21/2013 4:38 AM WATER PUMP SERVICER AMYLASE Routine 01/21/2013 4:38 AM WATER PUMP SERVICER COMPREHENSIVE METABOLIC PANEL Routine 01/21/2013 4:38 AM WATER PUMP SERVICER PROTIME-INR Routine 01/20/2013 5:52 PM WATER PUMP SERVICER LIPASE Stat 01/20/2013 5:52 PM WATER PUMP SERVICER CBC WITH DIFFERENTIAL Stat 01/20/2013 3:30 PM WATER PUMP SERVICER C-REACTIVE PROTEIN Stat 01/20/2013 3: 30 PM WATER PUMP SERVICER COMPREHENSIVE METABOLIC PANEL Stat 01/20/2013 3:30 PM WATER PUMP SERVICER documented in this encounter Results * LIPASE (01/22/2013 4:15 AM WATER PUMP SERVICER) Pathologist [facility] LIPASE 40 13 - 60 U/L [facility] [place] [facility] Blood specimen (specimen) 01/22/2013 4:15 AM WATER PUMP SERVICER 01/22/2013 4:28 AM WATER PUMP SERVICER Denise Rowley MD CHEMISTRY ORDERABLES [id number] [address] [facility] [place] [place] [address] * (ABNORMAL) COMPREHENSIVE METABOLIC PANEL (01/22/2013 4:15 AM WATER PUMP SERVICER) Pathologist [facility] SODIUM 137 135 - 145 mmol/L [facility] POTASSIUM 4.2 3.5 - 4.9 mmol/L [facility] LABORATORY SERVICES - [facility] CHLORIDE 103 96 - 108 mmol/L [facility] LABORATORY SERVICES - [facility] CO2 21(L) 22 - 30 mmol/L [facility] LABORATORY SERVICES - [facility] CALCIUM 9.3 8.6 - 10.2 mg/dL [facility] LABORATORY SERVICES - . [facility] BUN 11 6 - 20 mg/dL [facility] LABORATORY SERVICES [facility] CREATININE 1.03 0.67 - 1.17 mg/dL [facility] LABORATORY SERVICES - [facility] GLUCOSE 114(H) 65 - 99 mg/dL [facility]ORATORY SERVICES [facility] TOTAL PROTEIN 7.1 6.3 - 8.6 g/dL [facility] LABORATORY [facility] ALBUMIN 4.0 3.4 - 4.8 g/dL [facility]OR[facility] BILIRUBIN TOTAL 1.1(H) 0.2 - 1.0 mg/dL [facility] ALKALINE PHOSPHATASE 94 40 - 129 U/L [facility] AST 72(H) 12 - 38 U/L [facility] ALT 73(H) 0 - 41 U/L [facility] GFR, >60 >=60 mL/min/1. 7 sq meter [facility] GFR >60 >=60 mL/min/1. 7 sq meter [facility] Comment: GFR is calculated using the IDMS-Traceable Modification of Diet in Renal Disease (MDRD) Study formula and is only valid for patients 18 years or older. Further interpretative information is available in the Laboratory Services Policy Manual on the [facility] Intranet at: http://[facility]-intranet.[facility]/ Blood specimen (specimen) 01/22/2013 4:15 AM WATER PUMP SERVICER 01/22/2013 4:28 AM WATER PUMP SERVICER Denise Rowley MD CHEMISTRY ORDERABLES [facility]# [id number] [address] [facility] [place] [address] * (ABNORMAL) CBC WITH DIFFERENTIAL (01/22/2013 4:15 AM WATER PUMP SERVICER) WBC 9.8 4.0 - 9.8 K/uL [facility] LABORATORY [facility] RBC 4.48(L) 4.50 - 5.40 M/uL [facility] HEMOGLOBIN 13.8 13.6 - 16.5 g/dL [facility] HEMATOCRIT 39.4(L) 40.0 - 48.0 % [facility] LABORATORY [facility] MCV 87.9 82.0 - 99.0 fL [facility] MCH 30.8 27.2 - 32.6 pg [facility] MCHC 35.0 31.5 - 35.5 % [facility] PLATELETS 236 140 - 350 K/uL [facility] MPV 9.6 9.3 - 12.4 fL [facility]ORY SERVICES - [facility] RDW 12.9 11.5 - 14.5 % [facility] RDW-STDEV 41.3 37.1 - 48.7 fL [facility]ATORY SERVICES - [facility] NEUTROPHILS 80(H) 45 - 70 % [facility] LAB[facility]ATORY SERVICES - [facility] LYMPHOCYTES 14(L) 16 - 45 % [facility] MONOCYTES 6 3 - 13 % [facility] EOSINOPHILS 0 0 - 7 % [facility] BASOPHILS 0 0 - 2 % [facility] NEUTROPHIL ABSOLUTE 7.80(H) 1.90 - 7.00 K/uL [facility] LABORATORY SERVICES [facility] LYMPHOCYTE ABSOLUTE 1.32 0.70 - 4.50 K/uL [facility] MONOCYTE ABSOLUTE 0.63 0.10 - 1.30 K/uL [facility] EOSINOPHIL ABSOLUTE 0.01 0.00 - 0.70 K/uL [facility] BASOPHILS ABSOLUTE 0.01 0.00 - 0.20 K/uL [facility]ATORY SERVICES - [facility] Blood specimen (specimen) 01/22/2013 4:15 AM WATER PUMP SERVICER 01/22/2013 4:28 AM WATER PUMP SERVICER Denise Rowley MD HEMATOLOGY ORDERABLE S [facility] CLIA# [id number] [address] [facility] [facility] [place] [address] * PATHOLOGY (01/21/2013 5:00 PM WATER PUMP SERVICER) SURGICAL PATHOLOGY ?[facility] ?[address] ? [place], [place] ??[address] ? Patient: ??ANDREW MONTENEGRO ? : ??1960 ? Procedure Date: ??01/21/2013 ? Accession Date: ??01/22/2013 ? Case No: ??[id number] ? Ordering Dr: ??DENISE ROWLEY ? Case type SW is performed by [address], ? [place], [place] ??[address]; all other case types are performed by [facility] ? [facility], [address] [place], [place] ??[address] ?SURGICAL PATHOLOGY & NON-GYNECOLOGIC CYTOPATHOLOGY REPORT ? [...] A saccular structure is not appreciated. ? Title Manager sections are submitted in A1. ? Received [...] 0.8 cm. No mucosal lesion is identified. Title Manager sections ? are submitted in B1 and B2. ? GL/PJS 01.24.2013 05:57 am ? Microscopic: ? Received are slides labeled [id number], Andrew Montenegro. ? Sections of the hernia identify sheets [...] FOR OLGA HOUGH M.D.- 01/24/13 03:30 pm [facility] Showcase [facility] Tissue specimen (specimen) 01/21/2013 5:00 PM WATER PUMP SERVICER Denise Rowley MD PATHOLOGY/CYTOLOGY O RDERABLES [facility] Showcase [facility] CLIA# [id number] [address] [place] [address] * EKG 12-LEAD (01/21/2013 4:14 PM WATER PUMP SERVICER) Amrit Giang MD ECG ORDERABLES * CBC WITH DIFFERENTIAL (01/21/2013 4:38 AM WATER PUMP SERVICER) WBC 7.4 4.0 - 9.8 K/uL [facility] RBC 4.55 4.50 - 5.40 M/uL [facility] HEMOGLOBIN 13.8 13.6 - 16.5 g/dL [facility] - [facility] HEMATOCRIT 40.8 40.0 - 48.0 % [facility] MCV 89.7 82.0 - 99.0 fL [facility] - [facility] MCH 30.3 27.2 - 32.6 pg [facility] MCHC 33.8 31.5 - 35.5 % [facility] - [facility] PLATELETS 235 140 - 350 K/uL [facility] - [facility] MPV 9.8 9.3 - 12.4 fL [facility] - [facility] RDW 13.5 11.5 - 14.5 % [facility] - [facility] RDW-STDEV 44.3 37.1 - 48.7 fL [facility] - [facility] NEUTROPHILS 58 45 - 70 % [facility] - [facility] LYMPHOCYTES 32 16 - 45 % [facility] - [facility] MONOCYTES 8 3 - 13 % [facility] EOSINOPHILS 2 0 - 7 % [facility] BASOPHILS 0 0 - 2 % [facility] NEUTROPHIL ABSOLUTE 4.31 1.90 - 7.00 K/uL [facility] SERVICES [facility] LYMPHOCYTE ABSOLUTE 2.38 0.70 - 4.50 K/uL [facility] SERVICES - [facility] MONOCYTE ABSOLUTE 0.57 0.10 - 1.30 K/uL [facility] - [facility] EOSINOPHIL ABSOLUTE 0.16 0.00 - 0.70 K/uL [facility] SERVICES - [facility] BASOPHILS ABSOLUTE 0.03 0.00 - 0.20 K/uL [facility] - [facility] Blood specimen (specimen) 01/21/2013 4:38 AM WATER PUMP SERVICER 01/21/2013 5:34 AM WATER PUMP SERVICER Denise Rowley MD HEMATOLOGY ORDERABLE S [facility] LABORATORY SERVICES [facility] CLIA# [id number] [address] [facility] [place] [address] * (ABNORMAL) COMPREHENSIVE METABOLIC PANEL (01/21/2013 4:38 AM WATER PUMP SERVICER) SODIUM 139 135 - 145 mmol/L [facility] LABORATORY [facility] POTASSIUM 3.8 3.5 - 4.9 mmol/L [facility] LABORATORY [facility] CHLORIDE 103 96 - 108 mmol/L [facility] LABORATORY [facility] CO2 24 22 - 30 mmol/L [facility] LABORATORY [facility] CALCIUM 9.2 8.6 - 10.2 mg/dL [facility] LABORATORY [facility] BUN 14 6 - 20 mg/dL [facility] LABORATORY [facility] CREATININE 1.21(H) 0.67 - 1.17 mg/dL [facility] LABORATORY [facility] GLUCOSE 97 65 - 99 mg/dL [facility] TOTAL PROTEIN 6.9 6.3 - 8.6 g/dL [facility] ALBUMIN 4.0 3.4 - 4.8 g/dL [facility] LABORATORY [facility] BILIRUBIN TOTAL 1.7(H) 0.2 - 1.0 mg/dL [facility] LABORATORY [facility] ALKALINE PHOSPHATASE 92 40 - 129 U/L [facility] AST 28 12 - 38 U/L [facility] ALT 33 0 - 41 U/L [facility] LABORATORY [facility] GFR, >60 >=60 mL/min/1. 7 sq meter [facility] LABORATORY [facility] GFR >60 >=60 mL/min/1. 7 sq meter [facility] LAB[facility] Comment: GFR is calculated using the IDMS-Traceable Modification of Diet in Renal Disease (MDRD) Study formula and is only valid for patients 18 years or older. Further interpretative information is available in the Laboratory Services Policy Manual on the [facility] Intranet at: [email or web address]-intranet.[email or web address]/ Blood specimen (specimen) 01/21/2013 4:38 AM WATER PUMP SERVICER 01/21/2013 5:34 AM WATER PUMP SERVICER Denise Rowley MD CHEMISTRY ORDERABLES [facility] CLIA# [id number] [address] [place] [address] * AMYLASE (01/21/2013 4:38 AM WATER PUMP SERVICER) AMYLASE 50 28 - 100 U/L [facility] LABORATORY SERVICES [facility] Blood specimen (specimen) 01/21/2013 4:38 AM WATER PUMP SERVICER 01/21/2013 5:34 AM WATER PUMP SERVICER Denise Rowley MD CHEMISTRY ORDERABLES [facility] LABORATORY [facility] CLIA# [id number] [address] [place] [address] * LIPASE (01/21/2013 4:38 AM WATER PUMP SERVICER) LIPASE 23 13 - 60 U/L [facility] Blood specimen (specimen) 01/21/2013 4:38 AM WATER PUMP SERVICER 01/21/2013 5:34 AM WATER PUMP SERVICER Denise Rowley MD CHEMISTRY ORDERABLES [facility] Showcase [facility] [id number] [address] [place] [address] * PROTIME-INR (01/20/2013 5:52 PM WATER PUMP SERVICER) PROTIME 13.1 12.7 - 15.1 Seconds [facility] LABORAT[facility] INR 1.0 0.9 - 1.1 [facility] [facility] Comment: INR Therapeutic Range: Adult: ?? 2.0 - 3.0 for pulmonary embolism or prophylaxis against venous ?thrombosis or systemic embolization. 2.0 - 3.0 for patients with tissue heart valves. 2.5 - 3.5 for patients with mechanical heart valves or post GA. Pediatric ??(12 years and under): 1.5 - 3.0 Although the target range in children is not well established, ?INR values of 1.5 - 3.0 are recommended for most patients. ?Higher values have been used in children with prosthetic ?cardiac valves and hereditary clotting disorders. [place] (<3 days) therapeutic ranges have not been established. Blood specimen (specimen) 01/20/2013 5:52 PM WATER PUMP SERVICER 01/20/2013 5:58 PM WATER PUMP SERVICER Denise Rowley MD HEMATOLOGY ORDERABLE S Performing Organization Address [facility] Co de Phone Number [facility] CLIA# [id number] [address] [place] [address] * LIPASE (01/20/2013 5:52 PM WATER PUMP SERVICER) LIPASE 24 13 - 60 U/L [facility] Blood specimen (specimen) 01/20/2013 5:52 PM WATER PUMP SERVICER 01/20/2013 5:58 PM WATER PUMP SERVICER Denise Rowley MD CHEMISTRY ORDERABLES Performing Organization Address [facility] Phone Number [facility] Showcase [facility] CLIA# [id number] [address] [place] [address] * (ABNORMAL) C-REACTIVE PROTEIN (01/20/2013 3:30 PM WATER PUMP SERVICER) CRP 4.5(H) 0.0 - 0.8 mg/dL [facility] Showcase [facility] Blood specimen (specimen) 01/20/2013 3:30 PM WATER PUMP SERVICER 01/20/2013 3:34 PM WATER PUMP SERVICER Amrit Giang MD CHEMISTRY ORDERABLES Performing Organization Address [facility] de Phone Number [facility] Showcase [facility] CLIA# [id number] [address] [place] [address] * (ABNORMAL) COMPREHENSIVE METABOLIC PANEL (01/20/2013 3:30 PM WATER PUMP SERVICER) SODIUM 139 135 - 145 mmol/L [facility] LABORATORY [facility] POTASSIUM 3.9 3.5 - 4.9 mmol/L [facility] CHLORIDE 102 96 - 108 mmol/L [facility] LAB[facility] CO2 24 22 - 30 mmol/L [facility] LABORATORY [facility] CALCIUM 9.8 8.6 - 10.2 mg/dL [facility] LABORATORY [facility] BUN 13 6 - 20 mg/dL [facility] LABORATORY [facility] CREATININE 1.15 0.67 - 1.17 mg/dL [facility] LABORATORY [facility] GLUCOSE 98 65 - 99 mg/dL [facility] LABORATORY [facility] TOTAL PROTEIN 7.9 6.3 - 8.6 g/dL [facility] LABORATORY [facility] ALBUMIN 4.4 3.4 - 4.8 g/dL [facility] LABORATORY [facility] BILIRUBIN TOTAL 1.1(H) 0.2 - 1.0 mg/dL [facility] LABORATORY [facility] ALKALINE PHOSPHATASE 97 40 - 129 U/L [facility]ORATORY [facility] AST 33 12 - 38 U/L [facility] ALT 38 0 - 41 U/L [facility] LABORATORY [facility] GFR, >60 >=60 mL/min/1. 7 sq meter [facility] LABORATORY [facility] GFR >60 >=60 mL/min/1. 7 sq meter [facility] LABORATORY [facility] Comment: GFR is calculated using the IDMS-Traceable Modification of Diet in Renal Disease (MDRD) Study formula and is only valid for patients 18 years or older. Further interpretative information is available in the Laboratory Services Policy Manual on the [facility] Intranet at: [email or web address]-intranet.[email or web address]/ Blood specimen (specimen) 01/20/2013 3:30 PM WATER PUMP SERVICER 01/20/2013 3:34 PM WATER PUMP SERVICER Amrit Giang MD CHEMISTRY ORDERABLES [facility] LABORATORY [facility] CLIA# [id number] [address] [place] [address] * CBC WITH DIFFERENTIAL (01/20/2013 3:30 PM WATER PUMP SERVICER) WBC 7.6 4.0 - 9.8 K/uL [employer] [facility] RBC 4.67 4.50 - 5.40 M/uL [employer] [facility] HEMOGLOBIN 14.4 13.6 - 16.5 g/dL [employer] [facility] HEMATOCRIT 41.2 40.0 - 48.0 % [employer] [facility] MCV 88.2 82.0 - 99.0 fL [employer] [facility] SERVICES - [facility] MCH 30.8 27.2 - 32.6 pg [employer] [facility] MCHC 35.0 31.5 - 35.5 % [employer] [facility] PLATELETS 234 140 - 350 K/uL [employer] [facility] MPV 9.5 9.3 - 12.4 fL [employer] [facility] RDW 13.6 11.5 - 14.5 % [employer] [facility] RDW-STDEV 43.4 37.1 - 48.7 fL [employer] [facility] NEUTROPHILS 60 45 - 70 % [employer] [facility] LYMPHOCYTES 32 16 - 45 % [employer] [facility] - [facility] MONOCYTES 6 3 - 13 % [employer] [facility] - [facility] EOSINOPHILS 1 0 - 7 % [employer] [facility] BASOPHILS 0 0 - 2 % [facility] NEUTROPHIL ABSOLUTE 4.62 1.90 - 7.00 K/uL [employer] [facility] LYMPHOCYTE ABSOLUTE 2.41 0.70 - 4.50 K/uL [employer] [facility] MONOCYTE ABSOLUTE 0.47 0.10 - 1.30 K/uL [employer] [facility] EOSINOPHIL ABSOLUTE 0.10 0.00 - 0.70 K/uL [employer] [facility] SERVICES [facility] BASOPHILS ABSOLUTE 0.03 0.00 - 0.20 K/uL [employer] [facility] Blood specimen (specimen) 01/20/2013 3:30 PM WATER PUMP SERVICER 01/20/2013 3:34 PM WATER PUMP SERVICER Amrit Giang MD HEMATOLOGY ORDERABLE S [facility]# [id number] [address] [place], [place] [address] documented in this encounter Visit Diagnoses Not on filedocumented in this encounter Administered Medications Inactive Administered Medications - up to 3 most recent administrations Medication Order MAR Action Action Date Dose Rate Site bupivacaine-EPINEPHrine (SENSORCAINE-EPINEPHRINE) 0.25 %-1:200,000 injection INTRA-PROCEDURE PRN, Starting on Thu01/21/13 at 1528, Until Thu01/21/13 at 1540, Routine, Intra-op Given 01/21/2013 3:28 PM WATER PUMP SERVICER 50 mL Operative Site sodium chloride 0.9 % irrigation irrigation INTRA-PROCEDURE PRN, Starting on Thu01/21/13 at 1529, Until Thu01/21/13 at 1540, Routine, Intra-op Given 01/21/2013 3:29 PM WATER PUMP SERVICER 3,000 mL Operative Site documented in this encounter Active and Recently Administered Medications Times are shown in WATER PUMP SERVICER. Scheduled Medication Order 01/20/2013 01/21/2013 01/22/2013 piperacillin-tazobacta m (ZOSYN) IVPB 3.375 Gram (CANCELED) 3.375 Gram, IV, EVERY 6 HOURS, First dose on Nikky 01/20/13 at 1900, Until Discontinued, Routine 2139 (New Bag - Provider: Dana Gonzalez RN) 0231 (New Bag - Provider: Dana Gonzalez RN)0811 (New Bag - Provider: Artuhr Zarate RN)1339 (New Bag - Provider: ABDULLAHI Tan)1500 (Not Given - Provider: Gabrielle Rodriguez RN - Reason: Clarify-Other (Comment)) piperacillin-tazobacta m (ZOSYN) IVPB 3.375 Gram (CANCELED) 3.375 Gram, IV, EVERY 6 HOURS, First dose on Thu01/21/13 at 2000, Until Discontinued, Routine 2102 (New [...] Gabrielle Rodriguez RN)0424 (Stopped - Provider: Gabrielle Rodriguez RN - Comment: Pt. tolerating PO fluids.) [...] MD) documented in this encounter Care Teams Cook Soup Relationship Specialty Start Date End Date Amrit Giang MD PCP - General Family Practice 04/13/12 documented as of this encounter
--- OUTSIDE RECORDS SUMMARY | 2024-03-07 05:28 | XMS_ITS | Encounter Summary ---
Author Organization [facility] Address [address] [place] [address] Care Team Providers Care Collaborating Supervising Physician Name Role Phone Amrit Giang MD Primary Care Provider [phone] Reason for Visit * Reason Comments Physical Encounter Details Date Type Department Care Team (Late st Contact Info) Description 04/13/2012 10:30 AM SPECIAL WARFARE COMBATANT CREWMAN Office Visit [facility] [address] [facility] [address] [place] [address] Amrit Giang MD [address] [place] [address] [address] [place] [address] Well adult exam (Primary Dx); Malaise and fatigue; Rectal bleeding; Anemia; IBS (irritable bowel syndrome); Hyperlipidemia; Prostate cancer screening; Obese Social History Tobacco Use Types Packs/Day [...] Sign Reading Time Taken Comments Blood Pressure 130/90 04/13/2012 11:03 AM SPECIAL WARFARE COMBATANT CREWMAN Pulse 70 04/13/2012 11:03 AM SPECIAL WARFARE COMBATANT CREWMAN Temperature 36.6 ??C (97.8 ??F) 04/13/2012 11:[address] Respiratory Rate 18 04/13/2012 11:03 AM SPECIAL WARFARE COMBATANT CREWMAN Oxygen Saturation - - Inhaled Oxygen Concentration - - Weight 119.7 kg (264 lb) 04/13/2012 11:03 AM SPECIAL WARFARE COMBATANT CREWMAN Height 182.9 cm (6') 04/13/2012 11:03 AM SPECIAL WARFARE COMBATANT CREWMAN Body Mass Index 35.8 04/13/2012 11:03 AM SPECIAL WARFARE COMBATANT CREWMAN documented in this encounter Progress Notes * Amrit Giang MD - 04/16/2012 11:58 PM CST 04/13/12 SUBJECTIVE: Darrel Montenegro is a 52 y.o. male presenting for his annual checkup. He is overweight and enjoys biking when he finds the time. He has general malaise and decreased stamina. No HTN or DM or CAD. He has hyperlipidemia and family history of same. He eats a lot of fruits and vegetables and has decreased fried foods. No fast foods. Cholesterol '04 was 195 with TG 156 and HDL37 and LDL 127. Most recent '08 was total 240, TG 318, HDL 41, and LDL 135. He takes Kelly 3 Fish Oil supplement. There is family history of CAD (father over 50). PSA '08 was 0.8. He denies nocturia. He has intermittent blood in stools, on tissue. No weight loss. Onset was in college and occurs several times yearly. Stools tend to be loose. Last bleeding was last week. He has good response to Tucks pads and Cortisone cream. There is no family history of colon cancer. 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 He has skin cancer excised from right ear lobe area 6 years ago. He uses sun screen now. Patient Active Problem List Diagnosis Code ??? Hyperlipidemia 272.4 ??? Obese 278.00 Current Outpatient Prescriptions on File Prior to Visit Medication Sig Dispense Refill ??? Ceupg-3-LYB-EPA-Fish Oil 300-1,000 mg Capsule Take 2 Caps by mouth daily. 30 Cap 3 ??? MULTIVITAMIN W-MINERALS/LUTEIN (CENTRUM SILVER ORAL) Take [...] of skin of ear 2006 right ear Past Surgical History Procedure Laterality Date ??? Hx ear surgery Right 09/2011 coclear implant ??? Hx tonsillectomy high school ??? Hx malignant skin lesion excision Right 2006 ear lobe Family History Problem Relation Age of Onset [...] Cancer Neg Hx ??? Dementia Maternal Grandmother Mom just had TKR surgery 2 weeks ago. Parents live in [place]. Recently visited there and had long drive. History Substance Use Topics ??? Smoking status: [...] oriented x 3, in no distress. BP 130/90 Pulse 70 Temp(Src) 97.8 ??F (36.6 ??C) (Tympanic) Resp 18 Ht 6' (1.829 m) Wt 264 lb (119.75 kg) BMI 35.8 kg/m2 Sinuses: nontender. TM's clear. PERRL, conjunctivae clear, [...] no testicular masses or tenderness, no hernias. Rectal : external hemorrhoids and no external masses Extremities show no edema, normal peripheral pulses. Neurological is normal without focal findings. Assessment/Plan: (V70.0) Well adult exam - Plan: TDAP VACCINE >7 YO IM TSH LIPID PANEL COMPREHENSIVE METABOLIC PANEL PSA TESTOSTERONE FREE AND TOTAL CBC WITH DIFFERENTIAL URINALYSIS WITH REFLEX CULTURE Reviewed diet and exercise. Discussed stress management and relaxation. (780.79) Malaise and fatigue - Plan: TSH COMPREHENSIVE METABOLIC PANEL TESTOSTERONE FREE AND TOTAL Resume regular exercise regimen (569.3) Rectal bleeding Suspect external hemorrhoids Schedule colonoscopy - he will call when ready to schedule it (285.9) Anemia - Plan: CBC WITH DIFFERENTIAL (564.1) IBS (irritable bowel syndrome) - Plan: TSH COMPREHENSIVE METABOLIC PANEL high fiber diet Schedule colonoscopy as above (272.4) Hyperlipidemia - Plan: LIPID PANEL COMPREHENSIVE METABOLIC PANEL Reviewed low fat diet. Increase fruits and vegetables. Decrease fried foods, fast foods, and fatty foods Continue Kelly 3 Fish Oil 2 grams daily (V76.44) Prostate cancer screening - Plan: PSA (278.00) Obese Reviewed diet and exercise. Resume biking. Appropriate medications prescribed. Appropriate patient instructions provided. Follow-up as I have indicated. Call if problems or questions. Medications and options explained to include common side effects. I have reviewed relevant labs and results. I have reviewed the patient's medical history in detail. I have updated the computerized patient record when indicated. IAL WARFARE COMBATANT CREWMAN documented in this encounter Miscellaneous Notes * Addendum Note - Amrit Giang MD - 01/20/2013 3:33 AM CSTAddended by: AMRIT GIANG on: 01/20/2013 03:33 AM Modules accepted: Orders IAL WARFARE COMBATANT CREWMAN documented in this encounter Plan of Treatment Not on file documented as of this encounter Results * URINALYSIS WITH REFLEX CULTURE (04/13/2012 12:00 PM SPECIAL WARFARE COMBATANT CREWMAN) URINE CULTURE ORDER Not indicated [facility] Comment: Criteria for a reflex culture include one or more of the following: ??Abnormal nitrite, leukocyte esterase, WBCs or RBCs. ??Lack of qualifying criteria does not exclude the possiblity of a urinary tract infection. ??Dilute urine, drug interference, etc. may decrease the sensitivity of the criteria analytes. Urine, clean catch 04/13/2012 12:00 PM SPECIAL WARFARE COMBATANT CREWMAN 04/13/2012 8:38 PM SPECIAL WARFARE COMBATANT CREWMAN Comment:URINE VOIDED Amrit Giang MD URINE ORDERABLES [facility]# [id number] [address] [address] * CBC WITH DIFFERENTIAL (04/13/2012 12:00 PM SPECIAL WARFARE COMBATANT CREWMAN) WBC 5.5 4.0 - 9.8 K/uL [facility] SERVICES [facility] RBC 5.33 4.50 - 5.40 M/uL [facility]ORY SERVICES [facility] HEMOGLOBIN 16.1 13.6 - 16.5 g/dL [facility] SERVICES [facility] HEMATOCRIT 47.8 40.0 - 48.0 % [facility] SERVICES [facility] MCV 89.7 82.0 - 99.0 fL [facility] SERVICES [facility] MCH 30.2 27.2 - 32.6 pg [facility] SERVICES [facility] MCHC 33.7 31.5 - 35.5 % [facility] SERVICES [facility] PLATELETS 244 140 - 350 K/uL [facility] SERVICES [facility] MPV 9.9 9.3 - 12.4 fL [facility] RDW 14.0 11.5 - 14.5 % [facility] RDW-STDEV 45.9 37.1 - 48.7 fL [employer] [facility]ORY SERVICES - [facility] NEUTROPHILS 58 45 - 70 % [facility] - . [facility] LYMPHOCYTES 36 16 - 45 % [facility] - . [facility] MONOCYTES 5 3 - 13 % [facility] - . [place] EOSINOPHILS 1 0 - 7 % [facility] - . [facility] BASOPHILS 0 0 - 2 % [facility] - . [facility] NEUTROPHIL ABSOLUTE 3.17 1.90 - 7.00 K/uL [facility] LYMPHOCYTE ABSOLUTE 1.97 0.70 - 4.50 K/uL [facility] - . [facility] MONOCYTE ABSOLUTE 0.28 0.10 - 1.30 K/uL [facility] EOSINOPHIL ABSOLUTE 0.04 0.00 - 0.70 K/uL [facility] - . [facility] BASOPHILS ABSOLUTE 0.03 0.00 - 0.20 K/uL [employer] [facility] - [facility] Blood specimen (specimen) 04/13/2012 12:00 PM SPECIAL WARFARE COMBATANT CREWMAN 04/13/2012 8:38 PM SPECIAL WARFARE COMBATANT CREWMAN Amrit Giang MD HEMATOLOGY ORDERABLE S Performing Organization Address City/State/[facility] de Phone Number [facility] SERVICES [facility]# [id number] [address] [place] [address] * TESTOSTERONE FREE AND TOTAL (04/13/2012 12:00 PM SPECIAL WARFARE COMBATANT CREWMAN) TESTOSTERONE FREE 11 9 - 30 ng/dL [facility] TESTOSTERONE 410 240 - 950 ng/dL [facility] Comment: Test Performed by: [facility] - [address] [address] Online Content Editor: Melchor Conner III, M.D. Blood specimen (specimen) 04/13/2012 12:00 PM SPECIAL WARFARE COMBATANT CREWMAN 04/13/2012 8:38 PM SPECIAL WARFARE COMBATANT CREWMAN Amrit Giang MD CHEMISTRY ORDERABLES [facility] SERVICES [facility] CLIA# [id number] [address] [place] [address] * PSA (04/13/2012 12:00 PM SPECIAL WARFARE COMBATANT CREWMAN) [facility] PSA 1.2 0.0 - 4.0 ng/mL [facility] SERVICES [facility] Comment:Performed on [email or web address] System Blood specimen (specimen) 04/13/2012 12:00 PM SPECIAL WARFARE COMBATANT CREWMAN 04/13/2012 8:38 PM SPECIAL WARFARE COMBATANT CREWMAN Amrit Giang MD CHEMISTRY ORDERABLES Performing Organization Address City/[facility]/ZIP Co de Phone Number [facility] CLIA# [id number] [address] [place] [address] * (ABNORMAL) COMPREHENSIVE METABOLIC PANEL (04/13/2012 12:00 PM SPECIAL WARFARE COMBATANT CREWMAN) [facility] SODIUM 139 135 - 145 mmol/L [facility] POTASSIUM 4.2 3.5 - 4.9 mmol/L [employer]ORY SERVICES [facility] CHLORIDE 103 96 - 108 mmol/L [facility] CO2 25 22 - 30 mmol/L [employer] CALCIUM 10.0 8.6 - 10.2 mg/dL [employer] [facility] SERVICES [facility] BUN 12 6 - 20 mg/dL [facility] CREATININE 1.02 0.67 - 1.17 mg/dL [facility] GLUCOSE 94 65 - 99 mg/dL [employer] SERVICES [facility] TOTAL PROTEIN 7.9 6.3 - 8.6 g/dL [facility] ALBUMIN 4.9(H) 3.4 - 4.8 g/dL [employer] SERVICES [facility] BILIRUBIN TOTAL 1.3(H) 0.2 - 1.0 mg/dL [employer] SERVICES [facility] ALKALINE PHOSPHATASE 72 40 - 129 U/L [employer] AST 25 12 - 38 U/L [facility] ALT 26 0 - 41 U/L [facility] GFR, >60 >=60 mL/min/1. 7 sq meter [facility] GFR >60 >=60 mL/min/1. 7 sq meter [facility] Comment: GFR is calculated using the IDMS-Traceable Modification of Diet in Renal Disease (MDRD) Study formula and is only valid for patients 18 years or older. Further interpretative information is available in the Laboratory Services Policy Manual on the [facility] Intranet at: [email or web address].[facility] hospitalWindSimcleveland clinic [email or web address]/ Blood specimen (specimen) 04/13/2012 12:00 PM SPECIAL WARFARE COMBATANT CREWMAN 04/13/2012 8:38 PM SPECIAL WARFARE COMBATANT CREWMAN Amrit Giang MD CHEMISTRY ORDERABLES Performing Organization Address [facility]/ZIP Co de Phone Number [facility] CLIA# [id number] [address] [place] [address] * (ABNORMAL) LIPID PANEL (04/13/2012 12:00 PM SPECIAL WARFARE COMBATANT CREWMAN) CHOLESTEROL 223(H) 100 - 199 mg/dL [facility] TRIGLYCERIDE 252(H) 10 - 149 mg/dL [facility] HDL 48 40 - 59 mg/dL [facility] CHOL/HDL RATIO 4.6 2.0 - 5.0 [facility] LDL CALCULATED 125(H) <=99 mg/dL [facility] LIPID PANEL COMMENT See Below [facility] Comment: The adult ATP and pediatric NCEP classifications for lipids are available in the Laboratory Services Policy Manual on the [facility] at: [email or web address].[facility] hospitalWindSimcleveland clinic [email or web address]/ Blood specimen (specimen) 04/13/2012 12:00 PM SPECIAL WARFARE COMBATANT CREWMAN 04/13/2012 8:38 PM SPECIAL WARFARE COMBATANT CREWMAN Amrit Giang MD CHEMISTRY ORDERABLES [facility] [employer] [facility] CLIA# [id number] [address] [place] [address] * TSH (04/13/2012 12:00 PM SPECIAL WARFARE COMBATANT CREWMAN) TSH 1.11 0.27 - 4.20 uU/mL [facility] SERVICES [facility] Blood specimen (specimen) 04/13/2012 12:00 PM SPECIAL WARFARE COMBATANT CREWMAN 04/13/2012 8:38 PM SPECIAL WARFARE COMBATANT CREWMAN Amrit Giang MD CHEMISTRY ORDERABLES [facility] CLIA# [id number] [address] [place] [address] documented in this encounter Visit Diagnoses Diagnosis Well adult exam- Primary Routine general medical examination at a health care facility Malaise and fatigue Other malaise and fatigue Rectal bleeding Hemorrhage of rectum and anus Anemia Anemia, unspecified IBS (irritable bowel syndrome) Irritable bowel syndrome Hyperlipidemia Other and unspecified hyperlipidemia Prostate cancer screening Special screening for malignant neoplasm of prostate Obese Obesity, unspecified Well adult exam Routine general medical examination at a health care facility Malaise and fatigue Other malaise and fatigue IBS (irritable bowel syndrome) Irritable bowel syndrome Hyperlipidemia Other and unspecified hyperlipidemia Prostate cancer screening Special screening for malignant neoplasm of prostate Anemia Anemia, unspecified documented in this encounter Care Teams Collaborating Supervising Physician Relationship Specialty Start Date End Date Amrit Giang MD PCP - General Family Practice 04/13/12 documented as of this encounter
--- OUTSIDE RECORDS SUMMARY | 2024-03-07 05:28 | XMS_ITS | Encounter Summary ---
Author Organization [facility] Address [address] [place] [address] Care Team Providers Care Broadcast Field Supervisor Name Role Phone Amrit Giang MD Primary Care Provider [phone] Reason for Referral * Outpatient Services (Routine) - Closed Specialty Diagnoses / Procedures Referred By Contac t Referred To Contact CT Scan Diagnoses RUQ abdominal pain Nausea alone Procedures CT ABDOMEN PELVIS W CONTRAST Britney Schaeffer DO [address], [place] [address] Referral ID Status Reason Start Date Expiration Date V isits Requested Visits Authorized [id number] Closed STL CTS 01/18/2013 02/18/2013 1 1 ER WATERPROOFING MACHINE ADJUSTER Reason for Visit * Reason Comments Abdominal Pain RUQ pain Encounter Details Date Type Department Care Team (Late st Contact Info) Description 01/18/2013 3:15 PM PRIMER WATERPROOFING MACHINE ADJUSTER Office Visit [facility] [place] [address] [place] [address] Britney Schaeffer DO [address] [place] [address] RUQ abdominal pain (Primary Dx); Nausea alone Social History Tobacco Use Types Packs/Day Years [...] Sign Reading Time Taken Comments Blood Pressure 138/89 01/18/2013 3:15 PM PRIMER WATERPROOFING MACHINE ADJUSTER Pulse 67 01/18/2013 3:15 PM PRIMER WATERPROOFING MACHINE ADJUSTER Temperature 37.3 ??C (99.1 ??F) 01/18/2013 3:15 PM CS T Respiratory Rate 16 01/18/2013 3:15 PM PRIMER WATERPROOFING MACHINE ADJUSTER Oxygen Saturation - - Inhaled Oxygen Concentration - - Weight 121.1 kg (267 lb) 01/18/2013 3:15 PM PRIMER WATERPROOFING MACHINE ADJUSTER Height 182.9 cm (6') 01/18/2013 3:15 PM PRIMER WATERPROOFING MACHINE ADJUSTER Body Mass Index 36.21 01/18/2013 3:15 PM PRIMER WATERPROOFING MACHINE ADJUSTER documented in this encounter Progress Notes * Cece Crockett - 01/18/2013 4:[address] Abdomen scheduled for tomorrow at [facility]. The test prep was explained to the patient, and he needs to arrive at the MRI building at 2:20. This was arranged by [facility]. ER WATERPROOFING MACHINE ADJUSTER * Britney Schaeffer DO - 01/18/2013 3:59 PM CST Subjective: Darrel Montenegro is an 52 y.o. male who presents for evaluation of abdominal pain which started 3-4 days ago, stable since onset. Pain is located in the RUQ and radiates into the back sometimes. Pain is like someone is punching me . Pain is constant. C/o some nausea but no emesis. Also c/o belching and bloating. Aggravating factors: unsure. Denies that food worsens pain yet admits he has been avoiding eating. Alleviating factors: nothing. No change in bowel habits. No diarrhea or constipation. Last BM today. No black or bloody stools. Genito- Urinary ROS: negative for dysuria, urgency, frequency, trouble voiding, or hematuria. No cardiac or respiratory complaints. Complains of feeling feverish although has not had a recorded fever. Admits to lose of appetite.Tried Tums w/out relief. Past Medical History Diagnosis Date ??? Patient denies relevant medical history Past Surgical History Procedure Laterality Date ??? Hx ear surgery 09/2011 coclear implant ??? Hx tonsillectomy high school Current Outpatient Prescriptions Medication Sig Dispense Refill ??? CALCIUM CARBONATE (TUMS 500 ORAL) Take by mouth. ??? OMEGA-3/DHA/EPA/FISH OIL (OMEGA-3 FISH OIL ORAL) Take by mouth daily. ??? UBIDECARENONE (COQ-10 ORAL) Take by mouth daily. ??? MULTIVITAMIN W-MINERALS/LUTEIN (CENTRUM SILVER ORAL) Take by mouth daily. No current facility-administered medications for this visit. No Known Allergies History Substance Use Topics ??? Smoking status: Never Smoker ??? Smokeless tobacco: Never Used ??? Alcohol Use: 1.0 oz/week 2 Cans of beer per week Family History Problem Relation Age of Onset ??? Heart Disease Father ??? High Cholesterol Father ??? High Cholesterol Mother ??? Other Mother djd, bilateral TKR ??? Healthy Sister ??? Cancer Maternal Grandmother ??? Respiratory Disease Maternal Grandfather ??? Other Paternal Grandfather ??? Breast Cancer Paternal Grandfather ??? Healthy Sister ??? Other Sister Review of Systems: GEN - see HPI. HEENT - denies rhinorrhea or recent URI symptoms. NECK - No pain or swelling in the neck. No swollen glands. CVS - Patient denies any exertional chest pain, palpitations, syncope, orthopnea, edema. LUNGS - denies cough, chest pain, dyspnea, wheezing or hemoptysis. ABD - see HPI. -- See HPI. EXT - denies swelling, numbness, tingling or weakness in the extremities. SKIN - denies any rash Objective: Physical Exam: BP 138/89 Pulse 67 Temp(Src) 99.1 ??F (37.3 ??C) (Tympanic) Resp 16 Ht 6' (1.829 m) Wt 267 lb (121.11 kg) BMI 36.2 kg/m2 General appearance alert, cooperative, obese WM, no distress, appears stated age, appears mildly ill. Head Normocephalic, without obvious abnormality, atraumatic Eyes conjunctivae/corneas clear. PERRL, EOM's intact. Ears normal TM's and external ear canals AU Nose Nares normal.Mucosa normal. No drainage or sinus tenderness. Throat Lips, mucosa, and tongue normal. Teeth and gums normal Neck supple, symmetrical, trachea midline, no adenopathy. Back ROM normal. No CVA tenderness Lungs clear to auscultation bilaterally, without wheezing, rhonchi or rales. Heart regular rate and rhythm, S1, S2 normal, no murmur, click, rub or gallop Abdomen BS+, soft, nondistended, + TTP along the RUQ, + salguero's sign, no pain at McBurneys point, no guarding or rigidity. Extremities extremities normal, atraumatic, no cyanosis or edema Skin Skin color, texture, turgor normal. No rashes or lesions Lymph nodes Cervical and supraclavicular nodes normal. Neurologic Grossly normal. A/O x 3. No focal findings. Assessment/Plan Encounter Diagnoses Name Primary? RUQ abdominal pain Yes ??? Nausea alone Suspect gallbladder disease. Differential could also include gastroenteritis, GERD, renal colic, pancreatitis, liiver disease. Obtain labs as below today and arranged for CT abdomen tomorrow. Further recommendations based on results and clinical course. Orders Placed This Encounter ??? CT ABDOMEN PELVIS W CONTRAST: Metastatic workup; Abdominal pain, Trauma, Tumor, Appendicitis, Diverticulitis, Abcess ??? CBC WITH DIFFERENTIAL ??? COMPREHENSIVE METABOLIC PANEL ??? C-REACTIVE PROTEIN ??? GGT ??? LIPASE ??? AMYLASE ??? UA (URINALYSIS WITH REFLEX CULTURE) ER WATERPROOFING MACHINE ADJUSTER documented in this encounter Plan of Treatment Not on file documented as of this encounter Results * CT ABDOMEN PELVIS W CONTRAST (01/19/2013 4:07 PM PRIMER WATERPROOFING MACHINE ADJUSTER) Anatomical Region Laterality Modality Abdomen Computed Tomogra phy 01/19/2013 3:59 PM PRIMER WATERPROOFING MACHINE ADJUSTER Impressions 01/20/2013 9:26 AM PRIMER WATERPROOFING MACHINE ADJUSTER IMPRESSION: Abnormal edematous thickening of the gallbladder wall with moderate gallbladder dilatation possibly with some tiny calculi believed to represent acute cholecystitis. The finding was promptly communicated to Dr. Schaeffer's office staff at the time of interpretation as well as a message placed on the [employer] system. Dictated from [facility] A Red-Critical test result notification was sent via the [employer] service, 4:41:51 PM, 01/19/2013, [employer] Message ID [id number]. Narrative 01/20/2013 9:26 AM PRIMER WATERPROOFING MACHINE ADJUSTER CT ABDOMEN AND PELVIS WITH IV CONTRAST [...] well as a message placed on the [employer] system. Dictated from [facility] A Red-Critical test result notification was sent via the [employer] service, 4:41:51 PM, 01/19/2013, [employer] Message ID [id number]. Britney Schaeffer DO CT ORDERABLES * URINALYSIS WITH REFLEX CULTURE (01/18/2013 8:56 PM PRIMER WATERPROOFING MACHINE ADJUSTER) URINE CULTURE ORDER Not indicated [facility] Comment: Criteria for a reflex culture include one or more of the following: ??Abnormal nitrite, leukocyte esterase, WBCs or RBCs. ??Lack of qualifying criteria does not exclude the possiblity of a urinary tract infection. ??Dilute urine, drug interference, etc. may decrease the sensitivity of the criteria analytes. Urine specimen (specimen) 01/18/2013 8:56 PM PRIMER WATERPROOFING MACHINE ADJUSTER 01/18/2013 9:09 PM PRIMER WATERPROOFING MACHINE ADJUSTER Comment:URINE VOIDED Britney Schaeffer DO URINE ORDERABLES Performing Organization Address [facility]/ZIP Co de Phone Number [facility] CLIA# [id number] [address] [place] [address] * AMYLASE (01/18/2013 8:56 PM PRIMER WATERPROOFING MACHINE ADJUSTER) AMYLASE 73 28 - 100 U/L [facility] Blood specimen (specimen) 01/18/2013 8:56 PM PRIMER WATERPROOFING MACHINE ADJUSTER 01/18/2013 9:09 PM PRIMER WATERPROOFING MACHINE ADJUSTER Britney Schaefferseema [place] CHEMISTRY ORDERABLES Performing Organization Address [facility]/ZIP Co de Phone Number [facility] CLIA# [id number] [address] [place] [address] * LIPASE (01/18/2013 8:56 PM PRIMER WATERPROOFING MACHINE ADJUSTER) LIPASE 30 13 - 60 U/L [facility] Blood specimen (specimen) 01/18/2013 8:56 PM PRIMER WATERPROOFING MACHINE ADJUSTER 01/18/2013 9:09 PM PRIMER WATERPROOFING MACHINE ADJUSTER Britney Schaeffer DO CHEMISTRY ORDERABLES [facility]# [id number] [address] [place] [address] * GGT (01/18/2013 8:56 PM PRIMER WATERPROOFING MACHINE ADJUSTER) GGT 45 8 - 61 U/L [facility] Blood specimen (specimen) 01/18/2013 8:56 PM PRIMER WATERPROOFING MACHINE ADJUSTER 01/18/2013 9:09 PM PRIMER WATERPROOFING MACHINE ADJUSTER Britney Schaeffer DO CHEMISTRY ORDERABLES Performing Organization Address City/[facility]/ZIP Co de Phone Number [facility]# [id number] [address] [place] [address] * (ABNORMAL) C-REACTIVE PROTEIN (01/18/2013 8:56 PM PRIMER WATERPROOFING MACHINE ADJUSTER) CRP 3.8(H) 0.0 - 0.8 mg/dL [facility] Blood specimen (specimen) 01/18/2013 8:56 PM PRIMER WATERPROOFING MACHINE ADJUSTER 01/18/2013 9:09 PM PRIMER WATERPROOFING MACHINE ADJUSTER Britney Schaeffer DO CHEMISTRY ORDERABLES Performing Organization Address City/[facility]/ZIP Co de Phone Number [facility]# [id number] [address] [place] [address] * (ABNORMAL) COMPREHENSIVE METABOLIC PANEL (01/18/2013 8:56 PM PRIMER WATERPROOFING MACHINE ADJUSTER) SODIUM 141 135 - 145 mmol/L [facility] POTASSIUM 4.1 3.5 - 4.9 mmol/L [facility] CHLORIDE 100 96 - 108 mmol/L [facility] CO2 25 22 - 30 mmol/L [facility] CALCIUM 10.4(H) 8.6 - 10.2 mg/dL [facility] BUN 11 6 - 20 mg/dL [facility] CREATININE 1.12 0.67 - 1.17 mg/dL [facility] GLUCOSE 70 65 - 99 mg/dL [facility] TOTAL PROTEIN 8.1 6.3 - 8.6 g/dL [facility] ALBUMIN 4.9(H) 3.4 - 4.8 g/dL [facility] BILIRUBIN TOTAL 1.7(H) 0.2 - 1.0 mg/dL [facility] ALKALINE PHOSPHATASE 80 40 - 129 U/L [facility] AST 28 12 - 38 U/L [facility] ALT 31 0 - 41 U/L [facility] GFR, >60 >=60 mL/min/1. 7 sq meter [facility] GFR >60 >=60 mL/min/1. 7 sq meter [facility] Comment: GFR is calculated using the IDMS-Traceable Modification of Diet in Renal Disease (MDRD) Study formula and is only valid for patients 18 years or older. Further interpretative information is available in the [facility] Services Policy Manual on the [facility] Intranet at: [email or web address]/ Blood specimen (specimen) 01/18/2013 8:56 PM PRIMER WATERPROOFING MACHINE ADJUSTER 01/18/2013 9:09 PM PRIMER WATERPROOFING MACHINE ADJUSTER Britney Schaeffer DO CHEMISTRY ORDERABLES [facility]# [id number] [address] [place] [address] * (ABNORMAL) CBC WITH DIFFERENTIAL (01/18/2013 8:56 PM PRIMER WATERPROOFING MACHINE ADJUSTER) WBC 9.7 4.0 - 9.8 K/uL [facility] RBC 4.96 4.50 - 5.40 M/uL [facility] HEMOGLOBIN 15.3 13.6 - 16.5 g/dL [facility] HEMATOCRIT 44.2 40.0 - 48.0 % [facility] MCV 89.1 82.0 - 99.0 fL [facility] MCH 30.8 27.2 - 32.6 pg [facility] MCHC 34.6 31.5 - 35.5 % [facility] PLATELETS 227 140 - 350 K/uL [facility] MPV 10.3 9.3 - 12.4 fL [facility] RDW 13.9 11.5 - 14.5 % [facility] RDW-STDEV 45.3 37.1 - 48.7 fL [facility] NEUTROPHILS 72(H) 45 - 70 % [facility] LYMPHOCYTES 21 16 - 45 % [facility] MONOCYTES 6 3 - 13 % [facility] EOSINOPHILS 1 0 - 7 % [facility] BASOPHILS 0 0 - 2 % [facility] NEUTROPHIL ABSOLUTE 7.00 1.90 - 7.00 K/uL [facility] LYMPHOCYTE ABSOLUTE 2.04 0.70 - 4.50 K/uL [facility] MONOCYTE ABSOLUTE 0.54 0.10 - 1.30 K/uL [facility] EOSINOPHIL ABSOLUTE 0.06 0.00 - 0.70 K/uL [facility] BASOPHILS ABSOLUTE 0.02 0.00 - 0.20 K/uL [facility] Blood specimen (specimen) 01/18/2013 8:56 PM PRIMER WATERPROOFING MACHINE ADJUSTER 01/18/2013 9:09 PM PRIMER WATERPROOFING MACHINE ADJUSTER Britney Schaeffer DO HEMATOLOGY ORDERABLE S [facility]# [id number] [address] [place] [address] documented in this encounter Visit Diagnoses Diagnosis RUQ abdominal pain- Primary Abdominal pain, right upper quadrant Nausea alone RUQ abdominal pain Abdominal pain, right upper quadrant Nausea alone documented in this encounter Care Teams Broadcast Field Supervisor Relationship Specialty Start Date End Date Amrit Giang MD PCP - General Family Practice 04/13/12 documented as of this encounter
--- OUTSIDE RECORDS SUMMARY | 2024-03-07 05:28 | XMS_ITS | Encounter Summary ---
Author Organization [facility] Address [address] [place] [address] Care Team Providers Care Brim Blocker Name Role Phone Amrit Giang MD Primary Care Provider [phone] Encounter Details Date Type Department Care Team (Late st Contact Info) Description 01/20/2013 Orders Only [facility] Surgical Spec [place] [address] [place] [address] [place] [address] [address] [address] [address] [facility] [address] [place] [address] Social History Tobacco Use Types Packs/Day Years [...] on filedocumented in this encounter Care Teams Brim Blocker Relationship Specialty Start Date End Date Amrit Giang MD PCP - General Family Practice 04/13/12 documented as of this encounter
--- OUTSIDE RECORDS SUMMARY | 2024-03-07 05:28 | XMS_ITS | Encounter Summary ---
Author Organization [facility] Address [address] [place] [address] Care Team Providers Care Forming Process Line Worker Name Role Phone Amrit Giang MD Primary Care Provider [phone] Reason for Visit * Reason Onset Date Comments Results 01/19/2013 Encounter Details Date Type Department Care Team (Late st Contact Info) Description 01/19/2013 Telephone [facility] [address] [facility] [address] [place] [address] Amrit Giang MD [address] [place] [address] Results Social History Tobacco Use [...] encounter Miscellaneous Notes * Telephone Encounter - Angela Ambrocio - 01/19/2013 2:46 PM CST Patient notified by phone. He was drinking the contrast for the CT as we spoke OR SHAREPOINT DEVELOPER * Telephone Encounter - Angela Ambrocio - 01/19/2013 2:45 PM CST Message copied by ANGELA AMBROCIO on ThuJan 19, 2013 2:45 PM ------ Message from: TANJA CALABRESE Created: [...] CT scan as scheduled.. Thanks. HARMONY ------ OR SHAREPOINT DEVELOPER documented in this encounter Plan of Treatment Not on file documented as of this encounter Visit Diagnoses Not on filedocumented in this encounter Care Teams Forming Process Line Worker Relationship Specialty Start Date End Date Amrit Giang MD PCP - General Family Practice 04/13/12 documented as of this encounter
--- OUTSIDE RECORDS SUMMARY | 2024-03-07 05:28 | XMS_ITS | Encounter Summary ---
Author Organization [facility] Address [address] [place] [address] Care Team Providers Care Nuclear Medicine Physician Name Role Phone Amrit Giang MD Primary Care Provider [phone] Encounter Details Date Type Department Care Team (Latest Contact Info) Description 01/18/2013 8:55 PM REGIONAL ACCOUNT DIRECTOR - 01/18/2013 11:59 PM [facility] Hospital Encounter [facility] Laboratory Support Services [facility] [address] [place] [address] Britney Schaeffer DO [address] [place], [place] [id number] Abdominal pain, right upper quadrant Discharge Disposition: Home or Self Care Social [...] Sig Dispensed Refills Start Date End Date Evgxy-6-YOK-EPA-Fish Oil 300-1,000 mg Capsule Take 2 Caps [...] Procedure Name Priority Date/Time Associated Diagnosis Comments URINALYSIS WITH REFLEX CULTURE Routine 01/18/2013 8:56 PM REGIONAL ACCOUNT DIRECTOR RUQ abdominal pain Nausea alone CBC WITH DIFFERENTIAL Routine 01/18/2013 8:56 PM REGIONAL ACCOUNT DIRECTOR RUQ abdominal pain Nausea alone URINALYSIS W/REFLEX MICROSCOPIC Routine 01/18/2013 8:56 PM REGIONAL ACCOUNT DIRECTOR C-REACTIVE PROTEIN Routine 01/18/2013 8: 56 PM REGIONAL ACCOUNT DIRECTOR RUQ abdominal pain Nausea alone LIPASE Routine 01/18/2013 8:56 PM REGIONAL ACCOUNT DIRECTOR RUQ abdominal pain Nausea alone GGT Routine 01/18/2013 8:56 PM REGIONAL ACCOUNT DIRECTOR RUQ abdominal pain Nausea alone AMYLASE Routine 01/18/2013 8:56 PM REGIONAL ACCOUNT DIRECTOR RUQ abdominal pain Nausea alone COMPREHENSIVE METABOLIC PANEL Routine 01/18/2013 8:56 PM REGIONAL ACCOUNT DIRECTOR RUQ abdominal pain Nausea alone documented in this encounter Results * URINALYSIS (01/18/2013 8:56 PM REGIONAL ACCOUNT DIRECTOR) COLOR UA Pale Yellow [facility] - [facility] CLARITY UA Clear Clear [facility] - [facility] SPECIFIC GRAVITY UA 1.006 1.001 - 1.035 [facility] - [facility] PH UA 6.5 5.0 - 8.0 [facility] - . [facility] LEUKOCYTE ESTERASE UA Negative Negative [facility] - . [place] NITRITE UA Negative Negative [facility] PROTEIN UA Negative Negative [facility] . [facility] GLUCOSE UA Negative Negative [facility] KETONES UA Negative Negative [facility] UROBILINOGEN UA <1 <=1 mg/dL [facility] - [facility] BILIRUBIN UA Negative Negative [facility] - [facility] BLOOD UA Negative Negative [facility] - . [place] 01/18/2013 8:56 PM REGIONAL ACCOUNT DIRECTOR 01/18/2013 9:09 PM REGIONAL ACCOUNT DIRECTOR Comment:URINE VOIDED Britney Schaeffer DO URINE ORDERABLES Performing Organization Address [facility] [[email or web address]] Co de Phone Number [facility] CLIA# [id number] [address] [place] [address] * AMYLASE (01/18/2013 8:56 PM REGIONAL ACCOUNT DIRECTOR) AMYLASE 73 28 - 100 U/L [facility] Blood specimen (specimen) 01/18/2013 8:56 PM REGIONAL ACCOUNT DIRECTOR 01/18/2013 9:09 PM REGIONAL ACCOUNT DIRECTOR Britney Schaeffer DO CHEMISTRY ORDERABLES Performing Organization Address [facility] de Phone Number [facility] CLIA# [id number] [address] [place] [address] * URINALYSIS WITH REFLEX CULTURE (01/18/2013 8:56 PM REGIONAL ACCOUNT DIRECTOR) Pathologist [facility] URINE CULTURE ORDER Not indicated [facility] Comment: Criteria for a reflex culture include one or more of the following: ??Abnormal nitrite, leukocyte esterase, WBCs or RBCs. ??Lack of qualifying criteria does not exclude the possiblity of a urinary tract infection. ??Dilute urine, drug interference, etc. may decrease the sensitivity of the criteria analytes. Urine specimen (specimen) 01/18/2013 8:56 PM REGIONAL ACCOUNT DIRECTOR 01/18/2013 9:09 PM REGIONAL ACCOUNT DIRECTOR Comment:URINE VOIDED Britney Schaeffer DO URINE ORDERABLES Performing Organization Address [facility] [[email or web address]] Co de Phone Number [facility] Perficient [id number] [address] [place] [address] * LIPASE (01/18/2013 8:56 PM REGIONAL ACCOUNT DIRECTOR) LIPASE 30 13 - 60 U/L [facility] Blood specimen (specimen) 01/18/2013 8:56 PM REGIONAL ACCOUNT DIRECTOR 01/18/2013 9:09 PM REGIONAL ACCOUNT DIRECTOR Britney Schaeffer DO CHEMISTRY ORDERABLES [employer] LABORATORY SERVICES [facility] CLIA# [id number] [address] [place] [address] * GGT (01/18/2013 8:56 PM REGIONAL ACCOUNT DIRECTOR) GGT 45 8 - 61 U/L [employer] LAB ORATORY SERVICES [facility] Blood specimen (specimen) 01/18/2013 8:56 PM REGIONAL ACCOUNT DIRECTOR 01/18/2013 9:09 PM REGIONAL ACCOUNT DIRECTOR Britney Schaeffer DO CHEMISTRY ORDERABLES Performing Organization Address City/[facility]/ZIP Co de Phone Number [employer] LABORATORY SERVICES [facility] CLIA# [id number] [address] [place] [address] * (ABNORMAL) C-REACTIVE PROTEIN (01/18/2013 8:56 PM REGIONAL ACCOUNT DIRECTOR) CRP 3.8(H) 0.0 - 0.8 mg/dL [employer] LABORATORY SERVICES [facility] Blood specimen (specimen) 01/18/2013 8:56 PM REGIONAL ACCOUNT DIRECTOR 01/18/2013 9:09 PM REGIONAL ACCOUNT DIRECTOR Britney Schaeffer DO CHEMISTRY ORDERABLES Performing Organization Address City/[facility]/ZIP Co de Phone Number [facility]# [id number] [address] [place] [address] * (ABNORMAL) COMPREHENSIVE METABOLIC PANEL (01/18/2013 8:56 PM REGIONAL ACCOUNT DIRECTOR) SODIUM 141 135 - 145 mmol/L [facility] - [facility] POTASSIUM 4.1 3.5 - 4.9 mmol/L [facility] - [facility] CHLORIDE 100 96 - 108 mmol/L [facility] - [facility] CO2 25 22 - 30 mmol/L [facility] CALCIUM 10.4(H) 8.6 - 10.2 mg/dL [facility] BUN 11 6 - 20 mg/dL [facility] CREATININE 1.12 0.67 - 1.17 mg/dL [facility] LABORATORY [facility] GLUCOSE 70 65 - 99 mg/dL [facility] TOTAL PROTEIN 8.1 6.3 - 8.6 g/dL [facility] ALBUMIN 4.9(H) 3.4 - 4.8 g/dL [facility] BILIRUBIN TOTAL 1.7(H) 0.2 - 1.0 mg/dL [facility] ALKALINE PHOSPHATASE 80 40 - 129 U/L [facility] LABORATORY [facility] AST 28 12 - 38 U/L [facility] ALT 31 0 - 41 U/L [facility] GFR, >60 >=60 mL/min/1. 7 sq meter [facility] LABORATORY [facility] GFR >60 >=60 mL/min/1. 7 sq meter [facility] LABORATORY [facility] Comment: GFR is calculated using the IDMS-Traceable Modification of Diet in Renal Disease (MDRD) Study formula and is only valid for patients 18 years or older. Further interpretative information is available in the Laboratory Services Policy Manual on the [facility] Intranet at: [email or web address] [email or web address]/ Blood specimen (specimen) 01/18/2013 8:56 PM REGIONAL ACCOUNT DIRECTOR 01/18/2013 9:09 PM REGIONAL ACCOUNT DIRECTOR Britney Schaeffer DO CHEMISTRY ORDERABLES [id number] [address] [place], [place] [address] * (ABNORMAL) CBC WITH DIFFERENTIAL (01/18/2013 8:56 PM REGIONAL ACCOUNT DIRECTOR) WBC 9.7 4.0 - 9.8 K/uL [facility] RBC 4.96 4.50 - 5.40 M/uL [facility] HEMOGLOBIN 15.3 13.6 - 16.5 g/dL [facility] HEMATOCRIT 44.2 40.0 - 48.0 % [facility] MCV 89.1 82.0 - 99.0 fL [facility] MCH 30.8 27.2 - 32.6 pg [facility] MCHC 34.6 31.5 - 35.5 % [facility] PLATELETS 227 140 - 350 K/uL [facility] MPV 10.3 9.3 - 12.4 fL [facility] RDW 13.9 11.5 - 14.5 % [facility] RDW-STDEV 45.3 37.1 - 48.7 fL [facility] NEUTROPHILS 72(H) 45 - 70 % [facility] LYMPHOCYTES 21 16 - 45 % [facility] MONOCYTES 6 3 - 13 % [facility] EOSINOPHILS 1 0 - 7 % [facility] BASOPHILS 0 0 - 2 % [facility] NEUTROPHIL ABSOLUTE 7.00 1.90 - 7.00 K/uL [facility] LYMPHOCYTE ABSOLUTE 2.04 0.70 - 4.50 K/uL [facility] MONOCYTE ABSOLUTE 0.54 0.10 - 1.30 K/uL [facility] EOSINOPHIL ABSOLUTE 0.06 0.00 - 0.70 K/uL [facility] BASOPHILS ABSOLUTE 0.02 0.00 - 0.20 K/uL [facility] Blood specimen (specimen) 01/18/2013 8:56 PM REGIONAL ACCOUNT DIRECTOR 01/18/2013 9:09 PM REGIONAL ACCOUNT DIRECTOR Britney Schaeffer DO HEMATOLOGY ORDERABLE S [facility]# [id number] [address] [place] [address] documented in this encounter Visit Diagnoses Diagnosis RUQ abdominal pain Abdominal pain, right upper quadrant Nausea alone documented in this encounter Care Teams Nuclear Medicine Physician Relationship Specialty Start Date End Date Amrit Giang MD PCP - General Family Practice 04/13/12 documented as of this encounter
--- OUTSIDE RECORDS SUMMARY | 2024-03-07 05:28 | XMS_ITS | Encounter Summary ---
Author Organization [facility] Address [address] [place] [address] Care Team Providers Care Certified Athletic Trainer Name Role Phone Amrit Franks MD Primary Care Provider [phone] Reason for Visit * Reason Onset Date Comments Other 01/19/2013 acute gallbladde r Encounter Details Date Type Department Care Team (Late st Contact Info) Description 01/19/2013 Telephone [facility] [address] [facility] [address] [place] [address] Amrit Franks MD [address] [place] [address] [address] [place] [address] Other (acute gallbladder ) Social History Tobacco Use Types Packs/Day Years [...] encounter Miscellaneous Notes * Telephone Encounter - Charisse Ambrocio - 01/20/2013 9:50 AM CST Done with [facility] [employer] this morning. They will contact the patient. Orders given for CBC, CMP and C Reactive Protein per Dr Franks. SER OPERATOR * Telephone Encounter - Amrit Franks MD - 01/19/2013 7:03 PM CST Please arrange direct admit and I will consult surgery regarding lap cholecystectomy. SER OPERATOR * Telephone Encounter - Nikki Daly - 01/19/2013 5:08 PM CST Pt advised that dr. franks will do a direct admit thurs morning we will call him when bed is readyPt notified of plan SER OPERATOR * Telephone Encounter - Nikki Daly - 01/19/2013 4:43 PM CST radiologist called pt has acute cholecystitis Dr. franks advised , called pt per dr. franks /pt notified of results . Pt is feeling somewhat better but not great, gave pt option to go to er or direct admit, pt would like to be admitted tomorrow . Have call to Dr. franks for advise. SER OPERATOR documented in this encounter Plan of Treatment Not on file documented as of this encounter Visit Diagnoses Not on filedocumented in this encounter Care Teams Certified Athletic Trainer Relationship Specialty Start Date End Date Amrit Franks MD PCP - General Family Practice 04/13/12 documented as of this encounter
--- OUTSIDE RECORDS SUMMARY | 2024-03-07 05:28 | XMS_ITS | Encounter Summary ---
Author Organization [facility] Address [address] [place] [address] Care Team Providers Care Ip Counsel Name Role Phone Amrit Giang MD Primary Care Provider [phone] Encounter Details Date Type Department Care Team (Latest Contact Info) Description 04/13/2012 8:26 PM EVENT ATTENDANT - 04/13/2012 11:59 PM [facility] Hospital Encounter [facility] Laboratory Support Services [facility] [address] [place] [address] Amrit Giang MD [address] [place] [phone] Well adult exam Discharge Disposition: Home or Self Care Social [...] Sig Dispensed Refills Start Date End Date Lhnhm-1-NGR-EPA-Fish Oil 300-1,000 mg Capsule Take 2 Caps [...] Diagnosis Comments TESTOSTERONE FREE AND TOTAL Routine 04/13/2012 12:00 PM EVENT ATTENDANT Well adult exam Malaise and fatigue URINALYSIS WITH REFLEX CULTURE Routine 04/13/2012 12:00 PM EVENT ATTENDANT Well adult exam CBC WITH DIFFERENTIAL Routine 04/13/2012 12:00 PM EVENT ATTENDANT Well adult exam Anemia URINALYSIS W/REFLEX MICROSCOPIC Routine 04/13/2012 12:00 PM EVENT ATTENDANT TSH Routine 04/13/2012 12:00 PM EVENT ATTENDANT Well adult exam Malaise and fatigue IBS (irritable bowel syndrome) PSA Routine 04/13/2012 12:00 PM EVENT ATTENDANT Well adult exam Prostate cancer screening LIPID PANEL Routine 04/13/2012 12:00 PM EVENT ATTENDANT Well adult exam Hyperlipidemia COMPREHENSIVE METABOLIC PANEL Routine 04/13/2012 12:00 PM EVENT ATTENDANT Well adult exam Malaise and fatigue IBS (irritable bowel syndrome) Hyperlipidemia documented in this encounter Results * URINALYSIS (04/13/2012 12:00 PM EVENT ATTENDANT) COLOR UA Pale Yellow [facility] CLARITY UA Clear Clear [facility] SPECIFIC GRAVITY UA 1.007 1.001 - 1.035 [facility] PH UA 7.0 5.0 - 8.0 [facility] LEUKOCYTE ESTERASE UA Negative Negative [facility] NITRITE UA Negative Negative [facility] PROTEIN UA Negative Negative [facility] GLUCOSE UA Negative Negative [facility] KETONES UA Negative Negative [facility] UROBILINOGEN UA <1 <=1 mg/dL [facility] BILIRUBIN UA Negative Negative [facility] BLOOD UA Negative Negative [facility] 04/13/2012 12:0 0 PM EVENT ATTENDANT 04/13/2012 8:38 PM EVENT ATTENDANT Comment:URINE VOIDED Amrit Giang MD URINE ORDERABLES [facility] CLIA# [id number] [address] [place] [address] * CBC WITH DIFFERENTIAL (04/13/2012 12:00 PM EVENT ATTENDANT) WBC 5.5 4.0 - 9.8 K/uL [facility] RBC 5.33 4.50 - 5.40 M/uL [facility] HEMOGLOBIN 16.1 13.6 - 16.5 g/dL [facility] HEMATOCRIT 47.8 40.0 - 48.0 % [facility] MCV 89.7 82.0 - 99.0 fL [facility] MCH 30.2 27.2 - 32.6 pg [facility] MCHC 33.7 31.5 - 35.5 % [facility] PLATELETS 244 140 - 350 K/uL [facility] MPV 9.9 9.3 - 12.4 fL [facility] RDW 14.0 11.5 - 14.5 % [facility] RDW-STDEV 45.9 37.1 - 48.7 fL [facility] NEUTROPHILS 58 45 - 70 % [facility] LYMPHOCYTES 36 16 - 45 % [facility] MONOCYTES 5 3 - 13 % [facility] EOSINOPHILS 1 0 - 7 % [facility] BASOPHILS 0 0 - 2 % [facility] NEUTROPHIL ABSOLUTE 3.17 1.90 - 7.00 K/uL [facility] LYMPHOCYTE ABSOLUTE 1.97 0.70 - 4.50 K/uL [facility] MONOCYTE ABSOLUTE 0.28 0.10 - 1.30 K/uL [facility] EOSINOPHIL ABSOLUTE 0.04 0.00 - 0.70 K/uL [facility] BASOPHILS ABSOLUTE 0.03 0.00 - 0.20 K/uL [facility] Blood specimen (specimen) 04/13/2012 12:00 PM EVENT ATTENDANT 04/13/2012 8:38 PM EVENT ATTENDANT Amrit Giang MD HEMATOLOGY ORDERABLE S Performing Organization Address [facility]/ZIP Co de Phone Number [facility] CLIA# [id number] [address] [place] [address] * (ABNORMAL) LIPID PANEL (04/13/2012 12:00 PM EVENT ATTENDANT) CHOLESTEROL 223(H) 100 - 199 mg/dL [facility] TRIGLYCERIDE 252(H) 10 - 149 mg/dL [facility] HDL 48 40 - 59 mg/dL [facility] CHOL/HDL RATIO 4.6 2.0 - 5.0 [facility] LDL CALCULATED 125(H) <=99 mg/dL [facility] LIPID PANEL COMMENT See Below [facility] Comment: The adult ATP and pediatric NCEP classifications for lipids are available in the Laboratory Services Policy Manual on the [facility] Intranet at: [email or web address].[email or web address]/ Blood specimen (specimen) 04/13/2012 12:00 PM EVENT ATTENDANT 04/13/2012 8:38 PM EVENT ATTENDANT Amrit Giang MD CHEMISTRY ORDERABLES [facility] CLIA# [id number] [address] [place] [address] * PSA (04/13/2012 12:00 PM EVENT ATTENDANT) PSA 1.2 0.0 - 4.0 ng/mL [facility] Comment:Performed on [employer] E170 System Blood specimen (specimen) 04/13/2012 12:00 PM EVENT ATTENDANT 04/13/2012 8:38 PM EVENT ATTENDANT Amrit Giang MD CHEMISTRY ORDERABLES [facility] ETIENNE# [id number] [address] [place] [address] * (ABNORMAL) COMPREHENSIVE METABOLIC PANEL (04/13/2012 12:00 PM EVENT ATTENDANT) SODIUM 139 135 - 145 mmol/L [facility] POTASSIUM 4.2 3.5 - 4.9 mmol/L [facility] CHLORIDE 103 96 - 108 mmol/L [facility] CO2 25 22 - 30 mmol/L [facility] CALCIUM 10.0 8.6 - 10.2 mg/dL [facility] BUN 12 6 - 20 mg/dL [facility] CREATININE 1.02 0.67 - 1.17 mg/dL [facility] GLUCOSE 94 65 - 99 mg/dL [facility] TOTAL PROTEIN 7.9 6.3 - 8.6 g/dL [facility] ALBUMIN 4.9(H) 3.4 - 4.8 g/dL [facility] BILIRUBIN TOTAL 1.3(H) 0.2 - 1.0 mg/dL [facility] ALKALINE PHOSPHATASE 72 40 - 129 U/L [facility] AST 25 12 - 38 U/L [facility] ALT 26 0 - 41 U/L [facility] GFR, >60 >=60 mL/min/1. 7 sq meter [facility] GFR >60 >=60 mL/min/1. 7 sq meter [facility] Comment: GFR is calculated using the IDMS-Traceable Modification of Diet in Renal Disease (MDRD) Study formula and is only valid for patients 18 years or older. Further interpretative information is available in the Laboratory Services Policy Manual on the [facility] Intranet at: [email or web address].net/ Blood specimen (specimen) 04/13/2012 12:00 PM EVENT ATTENDANT 04/13/2012 8:38 PM EVENT ATTENDANT Amrit Giang MD CHEMISTRY ORDERABLES Performing Organization Address City/[facility]/ZIP Co de Phone Number [facility] [employer] [facility] CLIA# [id number] [address] [place] [address] * TESTOSTERONE FREE AND TOTAL (04/13/2012 12:00 PM EVENT ATTENDANT) TESTOSTERONE FREE 11 9 - 30 ng/dL [facility] [employer] [facility] TESTOSTERONE 410 240 - 950 ng/dL [facility] [employer] [facility] Comment: Test Performed by: [address] [address] Splicing Machine Operator Automatic: Melchor Conner III, M.D. Blood specimen (specimen) 04/13/2012 12:00 PM EVENT ATTENDANT 04/13/2012 8:38 PM EVENT ATTENDANT Amrit Giang MD CHEMISTRY ORDERABLES Performing Organization Address City/[facility]/ZIP Co de Phone Number [facility] [employer] [facility] CLIA# [id number] [address] [place] [address] * TSH (04/13/2012 12:00 PM EVENT ATTENDANT) Pathologist [facility] TSH 1.11 0.27 - 4.20 uU/mL [facility] [employer] [facility] Blood specimen (specimen) 04/13/2012 12:00 PM EVENT ATTENDANT 04/13/2012 8:38 PM EVENT ATTENDANT Amrit Giang MD CHEMISTRY ORDERABLES Performing Organization Address City/[facility]/ZIP Co de Phone Number [facility] [employer] [facility] CLIA# [id number] [address] [place] [address] * URINALYSIS WITH REFLEX CULTURE (04/13/2012 12:00 PM EVENT ATTENDANT) Pathologist [facility] URINE CULTURE ORDER Not indicated [facility] [employer] [facility] Comment: Criteria for a reflex culture include one or more of the following: ??Abnormal nitrite, leukocyte esterase, WBCs or RBCs. ??Lack of qualifying criteria does not exclude the possiblity of a urinary tract infection. ??Dilute urine, drug interference, etc. may decrease the sensitivity of the criteria analytes. Urine, clean catch 04/13/2012 12:00 PM EVENT ATTENDANT 04/13/2012 8:38 PM EVENT ATTENDANT Comment:URINE VOIDED Amrit Giang MD URINE ORDERABLES Performing Organization Address City/State/[facility] Co de Phone Number [facility] SERVICES [facility]# [id number] [address] [place] [address] documented in this encounter Visit Diagnoses Diagnosis Well adult exam Routine general medical examination at a health care facility Malaise and fatigue Other malaise and fatigue IBS (irritable bowel syndrome) Irritable bowel syndrome Hyperlipidemia Other and unspecified hyperlipidemia Prostate cancer screening Special screening for malignant neoplasm of prostate Anemia Anemia, unspecified documented in this encounter Care Teams Ip Counsel Relationship Specialty Start Date End Date Amrit Giang MD PCP - General Family Practice 04/13/12 documented as of this encounter
== END 2024-02-29 09:27 | disposition home or self-care (01) ==
LOC: ANHGOSHLAB 09:29
PROVIDERS: PCP Family Medicine; Visit Provider Family Medicine
DX: Z13.228 Encounter for screening for other metabolic disorders (principal); Z13.6 Encounter for screening for cardiovascular disorders; Z12.5 Encounter for screening for malignant neoplasm of prostate; E78.5 Hyperlipidemia, unspecified; R53.83 Other fatigue; E55.9 Vitamin D deficiency, unspecified
CPT/HCPCS: 36415; 80053; 80061; 82306; 84153; 85025; G0103

== ENCOUNTER 2024-03-18 09:45 | Outpatient (CLI) | payer BC, SELFPAY ==
--- NOTE | ~2024-03-18 | US_ITS ---
TESTICULAR ULTRASOUND (Doppler ultrasound interrogation techniques used as needed for this exam.) Ordering provider: Paras Ordonez DO History: . N50.819 - Testicular pain, unspecified . Comparison: None. FINDINGS: TESTICLES: Normal in size. The right measures 4.2x 2.3x 3.3 cm and the left measures 3.9x 2.1x 2.6 cm . Normal echogenicity bilaterally without mass lesion. Normal Doppler flow bilaterally. Cystic areas seen in the right and left testicles inferiorly measuring 0.2 x 0.2 x 0.3 cm in the right side and 0 .4 x 0.3 x 0.4 cm on the left. EPIDIDYMIDES: Normal in size. The right measures 1.2 cm and the left 1.2 cm. Normal echogenicity bila terally. Both demonstrate normal Doppler flow. Left epididymal cyst is seen measuring 0.7 x 0.4 x 0.6 cm. HYDROCELE: Bilateral small. VARICOCELE: Left side. OTHER ABNORMALITY: None seen. IMPRESSION: Bilateral small testicular cysts. Left epididymal cyst. Bilateral small hydrocele. Left varicocele. O therwise, normal testicular ultrasound. Reviewed, dictated and finalized at location A. [facility] IMPRESSION: Bilateral small testicular cysts. Left epididymal cyst. Bilateral small hydroce le. Left varicocele. Otherwise, normal testicular ultrasound.
== END 2024-03-18 09:46 | disposition home or self-care (01) ==
LOC: MICIMG 09:46
PROVIDERS: PCP Family Medicine; Visit Provider Family Medicine
DX: N44.2 Benign cyst of testis (principal); N50.3 Cyst of epididymis; N43.3 Hydrocele, unspecified; I86.1 Scrotal varices
CPT/HCPCS: 76870; 93976

== ENCOUNTER 2024-04-12 20:24 | Outpatient (NON) | payer BC, SELFPAY ==
--- OUTSIDE RECORDS SUMMARY | 2024-04-12 20:29 | XMS_ITS | Clinical Summary ---
Author Organization [facility] Address [address] [place] [address] Care Team Providers Care Pricing Coordinator Name Role Phone Amrit Giang MD Primary Care Provider [phone] Allergies No known active allergies Medications UBIDECARENONE (COQ-10 ORAL) Take by mouth daily. Active MULTIVITAMIN W-MINERALS/LUTEI N (CENTRUM SILVER ORAL) Take by mouth daily. Active Wpysx-5-VNJ-EPA- Fish Oil 300-1,000 mg Capsule Take 2 Caps by mouth daily. 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 Gender Identity Not on file Sexual Orientation Not on file Occupation Industry Job Start Date Job End Date Not on file Not on file Not on file Not on file Last Filed Vital Signs Vital Sign Reading Time Taken Comments Blood Pressure 136/80 09/10/2017 6:10 PM CDT Pulse 76 09/10/2017 5:48 PM CDT Temperature 36.9 ??C (98.5 ??F) 09/10/2017 5:48 PM CD T Respiratory Rate 18 09/10/2017 5:48 PM CDT Oxygen Saturation 96% 03/19/2017 6:55 PM GARAGE DOOR TECHNICIAN Inhaled Oxygen Concentration - - Weight 119.2 [...] on patient's age to complete this topic Insurance [facility] P[facility]ERR[facility] Advance Directives For more information, please contact: [phone] * Full Code (Latest Code Status on File) Date Activated Date Inactivated Comments 11/20/2016 12:56 PM 11/20/2016 6:22 PM * Full Code Date Activated Date Inactivated Comments 01/21/2013 3:29 PM 01/22/2013 1:29 PM * Full Code Date Activated Date Inactivated Comments 01/21/2013 2:01 PM 01/21/2013 3:29 PM * Full Code Date Activated Date Inactivated Comments 01/20/2013 4:08 PM 01/21/2013 2:01 PM Care Teams Pricing Coordinator Relationship Specialty Start Date End Date Amrit Giang MD PCP - General Family Practice 04/13/12
--- OUTSIDE RECORDS SUMMARY | 2024-04-12 20:29 | XMS_ITS | Clinical Summary ---
Author Organization [facility] Address [address] [place] [address]. [place], [place] [address] [place] [address] Care Team Providers Care Motor Driver Name Role Phone Kvng Ordonez DO Primary Care Provider [phone] Encounters Date Type Department Care Team Description 03/07/2024 11:10 AM SHAFT TENDER - 03/07/2024 11:59 PM SHAFT TENDER Hospital Encounter [facility] [address] [place] [address] Kvng Ordonez DO Discharge Disposition: Home or Self Care (Routine Discharge) 03/07/2024 Travel from Last 3 Months Social History Tobacco Use Types Packs/Day Years Used Date Smoking Tobacco: Never Assessed Sex and Gender Information Value Date Recorded Sex Assigned at Not on file Legal Sex Male 9:31 AM SHAFT TENDER Gender Identity Not on file Sexual Orientation Not on file Plan of Treatment Health Maintenance Due Date Last Done Comments Colorectal Cancer Screening Colonoscopy (10 Years) 1959 Annual Physical 12/25/1962 Hepatitis C 12/25/1977 Zoster Vaccines (1 of 2) 12/25/2009 DTaP, Tdap and Td Vaccines ( 2 - Td or Tdap) 04/13/2022 04/13/2012 COVID-19 Vaccine (2023-2 5 season) 2023 Influenza Adult (#1) 2023 RSV Immunization or 60+ Years (1 - 1-dose 75+ series) 12/25/2034 Meningococcal B Vaccine Aged Out No l onger eligible based on patient's age to complete this topic Meningococcal Vaccine Aged Out No johnna audie eligible based on patient's age to complete this topic Pneumococcal Vaccine: Pediat rics (0 to 5 Years) and At-Risk Patients (6 to 64 Years) Aged Out No longer eligi ble based on patient's age to complete this topic RSV Immunizations Under 20 Months Aged Out No longer eligible based on patient's age to complete this topic Procedures Procedure Name Priority Date/Time Associated Diagnosis Comments CT HEART DIAG CALCIUM SCORE Routine 03/07/2024 11:26 AM SHAFT TENDER Encounter for screening for cardiovascular disorders from Last 3 Months Results * CT HEART DIAG CALCIUM SCORE (03/07/2024 11:26 AM SHAFT TENDER) Anatomical Region Laterality Modality Computed Tomogra phy 03/07/2024 11:4 5 AM SHAFT TENDER Impressions 03/07/2024 11:46 AM SHAFT TENDER =====IMPRESSION:===== Total Score: 52.1 Mild plaque, moderate risk, low likelihood of significant stenosis (<50%). Ordered By: KVNG ORDONEZ Interpreted By: Neo Cohn MD, 03/07/2024 11:45 AM Narrative 03/07/2024 11:46 AM SHAFT TENDER [address] [address] EXAMINATION: Multislice Helical CT Coronary Calcium Scoring REASON FOR EXAM: Screening for heart disease COMPARISON: None TECHNIQUE: ??Multislice helical CT images of the proximal coronary arteries with a computer generated calcification score. A dose lowering technique was used for this procedure, which may include, but is not limited to, dose reduction technique, automated exposure control, iterative reconstruction, ALARA (As Low As Reasonably Achievable), or Image Gently techniques. Results: Left main: 0 ?LAD: 52.1 Circumflex: 0 ? Right coronary: 0 ?? Total Score: 52.1 ? Comments: There is no mediastinal adenopathy, and there are no pulmonary nodules in the visualized portions of the chest. Calcium score guidelines: Total Score* Calcium Plaque [place] ??*Risk ?*Probability of significant CAD 0 ?No Plaque ?Very Low ? Very unlikely 1-10 ?Minimal Plaque ? Low ?Unlikely 11-100 ?Mild Plaque ?Moderate ? Low likelihood of significant ? stenosis <50% ? 101-400 ? Moderate Plaque ?Moderately High ?Moderate likelihood of ? significant stenosis (>50%) Over 400 ?Extensive Plaque ? High ?High likelihood of ?significant stenosis (>50%) The amount of coronary artery calcification correlates with the severity of coronary atherosclerosis and the probability of future significant event. Calcification is not site specific for stenosis and does not identify non-calcified atherosclerotic plaque, but rather indicates the extent of atherosclerosis in the coronary arteries overall. The score may be used as an indicator for risk factor modification or additional cardiac testing. Significant change in calcium score over time may be indicative of subsequent disease development or useful as a benchmark to assess preventative programs. Procedure Note Neo Cohn MD - 03/07/2024 [address] [place] [address] EXAMINATION: Multislice Helical CT Coronary Calcium Scoring REASON FOR EXAM: Screening for heart disease COMPARISON: None TECHNIQUE: Multislice helical CT images of the proximal coronary arterieswith a computer generated calcification score. A dose lowering techniquewas used for this procedure, which may include, but is not limited to,dose reduction technique, automated exposure control, iterativereconstruction, ALARA (As Low As Reasonably Achievable), or Image Gentlytechniques. Results: Left main: 0 LAD: 52.1 Circumflex: 0 Right coronary: 0 Total Score: 52.1 Comments: There is no mediastinal adenopathy, and there are no pulmonarynodules in the visualized portions of the chest. Calcium score guidelines: Total Score* Calcium Plaque [place] *Risk *Probability ofsignificant CAD 0 No Plaque Very LowVery unlikely 1-10 Minimal Plaque LowUnlikely 11-100 Mild Plaque ModerateLow likelihood of significant stenosis <50% 101-400 Moderate Plaque Moderately HighModerate likelihood of significant stenosis (>50%) Over 400 Extensive Plaque HighHigh likelihood of significant stenosis (>50%) The amount of coronary artery calcification correlates with the severityof coronary atherosclerosis and the probability of future significantevent. Calcification is not site specific for stenosis and does notidentify non-calcified atherosclerotic plaque, but rather indicates theextent of atherosclerosis in the coronary arteries overall. The score may be used as an indicator for risk factor modification oradditional cardiac testing. Significant change in calcium score over timemay be indicative of subsequent disease development or useful as abenchmark to assess preventative programs. =====IMPRESSION:===== Total Score: 52.1 Mild plaque, moderate risk, low likelihood ofsignificant stenosis (<50%). Ordered By: KVNG ORDONEZ Interpreted By: Neo Cohn MD, 03/07/2024 11:45 AM Kvng Ordonez DO CT Final Result from Last 3 Months Insurance [facility] Care Teams Motor Driver Relationship Specialty Start Date End Date Kvng Ordonez DO [facility] [facility] [place] [id number] PCP - General FAMILY PRACTICE 03/03/24
== END 2024-04-12 20:25 | disposition home or self-care (01) ==
LOC: ANHLAB 20:27
PROVIDERS: PCP Student in an Organized Health Care Education/Training Program; Visit Provider Student in an Organized Health Care Education/Training Program
DX: N50.819 Testicular pain, unspecified (principal)
CPT/HCPCS: 87086

== ENCOUNTER 2024-11-22 12:34 | Outpatient (CLI) | payer BC, SELFPAY ==
--- OUTSIDE RECORDS SUMMARY | 2024-11-22 14:02 | XMS_ITS | Clinical Summary ---
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 Gender Identity Not on file Sexual Orientation Not on file Plan of Treatment Health Maintenance Due Date Last Done Comments Colorectal Cancer Screening Colonoscopy (10 Years) 1959 Annual Physical 12/25/1962 Hepatitis C 12/25/1977 Pneumococcal Vaccine: 50+ Ye ars (1 of 1 - PCV) 12/25/2009 Zoster Vaccines (1 of 2) 12/25/2009 DTaP, Tdap and Td Vaccines ( 2 - Td or Tdap) 04/13/2022 04/13/2012 COVID-19 Vaccine (1 - 2023-2 5 season) 2024 RSV Immunization or 60+ Years (1 - 1-dose 75+ series) 12/25/2034 Meningococcal B Vaccine Aged Out No l onger eligible based on patient's age to complete this topic Meningococcal Vaccine Aged Out No johnna audie eligible based on patient's age to complete this topic RSV Immunizations Under 20 Months Aged Out No longer eligible based on patient's age to complete this topic Insurance [facility] Care Teams Slip Cover Seamstress Relationship Specialty Start Date End Date Paras Ordonez DO [address] [place], [place] [id number] PCP - General FAMILY PRACTICE 03/03/24
--- OUTSIDE RECORDS SUMMARY | 2024-11-22 14:02 | XMS_ITS | Clinical Summary ---
Author Organization [facility] e Address [address] [place] [address] Care Team Providers Care Firmware Software Verification Engineer Name Role Phone Amrit Giang MD Primary Care Provider [phone] Allergies No known active allergies Medications UBIDECARENONE (COQ-10 ORAL) Take by mouth daily. Active MULTIVITAMIN W-MINERALS/LUTEI N (CENTRUM SILVER ORAL) Take by mouth daily. 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 Gender Identity Not on file Sexual Orientation Not on file Occupation Industry Job Start Date Job End Date Not on file Not on file Not on file Not on file Last Filed Vital Signs Vital Sign Reading Time Taken Comments Blood Pressure 136/80 09/10/2017 6:10 PM CDT Pulse 76 09/10/2017 5:48 PM CDT Temperature 36.9 C (98.5 F) 09/10/2017 5:48 PM CDT Respiratory Rate 18 09/10/2017 5:48 PM CDT Oxygen Saturation 96% 03/19/2017 6:55 PM [employer]STREAM BIOM[employer]CTURING TECHNICIAN Inhaled Oxygen Concentration - - Weight [...] of 2) 12/25/2009 DTAP/TDAP/TD VACCINES (2 - Td or Tdap) 04/13/2022 INFLUENZA VACCINE (#1) 2024 COLORECTAL SCREENING 11/20/2026 11/20/2016 Colorectal Cancer Screening 11/20/2026 RSV VACCINE (60+ or ) (1 - 1-dose 75+ series) 12/25/2034 Insurance [facility]UE PREFERRED Advance Directives For more information, please contact: [phone] * Full Code (Latest Code Status on File) Date Activated Date Inactivated Comments 11/20/2016 12:56 PM 11/20/2016 6:22 PM * Full Code Date Activated Date Inactivated Comments 01/21/2013 3:29 PM 01/22/2013 1:29 PM * Full Code Date Activated Date Inactivated Comments 01/21/2013 2:01 PM 01/21/2013 3:29 PM * Full Code Date Activated Date Inactivated Comments 01/20/2013 4:08 PM 01/21/2013 2:01 PM Care Teams Firmware Software Verification Engineer Relationship Specialty Start Date End Date Amrit Giang MD PCP - General Family Practice 04/13/12
--- NOTE | 2024-12-13 08:23 | P.SLEEP_ITS ---
Sleep Study Date of Study: 11/22/24 Ordering Provider: Tyree Kevin MD Interpreting Physician: Debi Castillo DO Sleep Study Type: Polysomnogram Height: 1.83 m Weight: 118.841 kg Body Mass Index: 35.5 Neck Circumference (inches): 18 [place]: 16 Reason for Sleep Study Daytime hypersomnia Sleep History The patient is a 63 year old male that had a sleep study ordered by his primary care physician for evaluation of sleep apnea. The patient was previously diagnosed with sleep apnea and was sent to a mandibular advancement device. The patient denies awakening from sleep short of breath. He denies awakening at night with heartburn, belching or cough. He constantly snores loudly enough that others complain. He constantly has trouble sleeping when he has a cold. He denies waking up gasping for air throughout the night. He occasionally has breathing problems at night observed by himself or others. He occasionally sweats excessively at night. He denies having heart palpitations or irregular heartbeats during the night. He occasionally falls asleep during the day but never while driving. He denies sleep paralysis, cataplexy and hypnagogic/ hypnopompic hallucination. He denies having trouble at school or work due to sleepiness. He denies feeling afraid of going to sleep. He denies having nightmares. He denies remembering his dreams. He occasionally has thoughts racing through his mind. He denies feeling or depressed. He rarely has anxiety. He occasionally has muscular tension. He occasionally notices parts of his body jerk. He occasionally kicks during the night. He denies having crawling and aching feelings in his legs but occasionally has leg pain during the night. He denies grinding his teeth during sleep and denies awakening with morning jaw pain. He denies being awakened by pain the night occasionally wakes up feeling stiff the morning. He occasionally wakes up with sore or achy muscles. He occasionally wakes up with pain in the neck, spine and other adelia nts. He goes to bed at midnight every night. It takes him a few minutes to fall asleep. He wakes up a few times throughout the night for unknown reasons but is able to fall back asleep within a few minutes. He wakes up at 7:30 a.m.. He typically gets 7-8 hours of sleep per night. He will stay in bed for 5 minutes after waking up in the morning. He currently lives with his significant other. He denies consuming any caffeinated beverages within 2 hours of bedtime. He denies engaging in physical exercise before bedtime. He will occasionally read before falling asleep. He will occasionally watch television before falling asleep. He denies taking naps in afternoon the evening. He does consume coffee every morning. He consumes an alcoholic beverage twice per week. He denies tobacco and recreational drug use. [facility] Past Medical History Medical History Cochlear implant in place (~2013) Cochlear implant in place (~2010) FH: cholecystectomy (~2017) Surgical History Surgical History S/P hernia repair robotic assisted transabdominal preperitoneal repair recurrent incisional hernia measuring approximately 3.5 cm with mesh 05/19/22 History of cochlear implant 2012 and 2015 Hx laparoscopic cholecystectomy 2017 Family History Family History Father Hypertension Heart disease Mother Hypertension Social History Social History Social History: Caffeine- coffee/soda Smoking status: Never smoker Alcohol intake: current Drinks per week: 3 Alcohol use details: BEER Substance use: never Substance use type: does not use Lack of Transportation: No Lack of Food: Never True Current Housing: I Have Housing Concerned About Future Housing: No Difficulty Paying Gas/Electric Bills: No Difficulty Paying for Meds: No Currently Unemployed: No Education: Bachelor's Degree Difficulty w/ Childcare or Family Care: No Living arrangements: alone Spiritual care concerns: No Medications Home Medications ?Medication ?Instructions ?Recorded ?Confirmed ?Type cholecalciferol (vitamin D3) 125 125 mcg PO DAILY 04/1710/27/24 History mcg (5,000 unit) tablet (Vitamin D3) coenzyme Q10 100 mg capsule 100 mg PO DAILY 05/09/22 0 10/27/24 History (CoQ-10) multivitamin 1 tablet PO DAILY 05/09/22 0 10/27/24 History omega 1-ybd-wdu-fish oil 1,000 mg 2 cap PO DAILY 05/0910/27/24 History (120 mg-180 mg) capsule (Fish Oil) Sleep Procedure A full night polysomnogram using the [employer] SleepAereo multi-channel system recorded the standard physiologic parameters including EEG, EOG, submentalis EMG, anterior tibialis EMG, EKG, body position, nasal and oral airflow using nasal pressure sensor and thermistor.? Respiratory parameters of chest and abdominal movements were recorded with Respiratory Inductance Plethysmography belts. Oxygen saturation was recorded by pulse oximetry. Video monitoring was also performed. Sleep stages, periodic limb movements, and EEG arousals were scored in 30 second epochs according to the criteria of the AASM Scoring Manual. The Apnea-Hypopnea Index was calculated using [facility] guidelines for definition of hypopnea with 4% O2 desaturations while scoring respiratory events. Sleep Architecture The total recording time was 428.5 minutes.? The total sleep time was 360.5 mi nutes. Sleep latency was 12.5 minutes. REM latency was 109.5 minutes. Sleep efficiency was 84.1%. The patient had 33 awakenings for an awakening index of 5.5. Wake after sleep onset time was 55.0 minutes. The patient spent 35.0 minutes, 9.7% of total sleep time in Stage N1. The patient spent 262.0 minutes, 72.7% in Stage N2. The patient spent 0.0 minutes, 0.0% in Stage N3. The patient spent 63.5 minutes, 17.6% in Stage REM sleep. Respiratory Analysis The patient had 21 hypopneas, 14 obstructive apneas and 2 central apneas for an overall Apnea Hypopnea Index of 6.2. The REM Apnea Hypopnea Index was 13.2. The NREM Apnea Hypopnea Index was 4.8. The patient had a Central Apnea Hypopnea Index of 0.3. There was no evidence of Uriel-Callahan Respirations. Arousals There were 63 total arousals for an arousal index of 10.5. There were 26 spontaneous arousals for an index of 4.3. There were 13 arousals due to respiratory events for an index of 2.2. There were 17 arousals due to periodic limb movements for an index of 2.8.? There were 7 arousals due to isolated limb movements for an index of 1.2. Periodic Limb Movements The patient had 29 isolated limb movements with an index of 4.8. The patient had 272 periodic limb movements with an index of 45.3, which is elevated (normal < 15). Patient had a total of 301 limb movements with a total limb movement index of 50.1. Oximetry Data The patient had an average oxygen saturation of 91.9% in sleep with a minimum oxygen saturation of 82.0% and a maximum oxygen saturation of 97.0%. The patient had 31 oxygen desaturations that were 4% or greater resulting in an Oxygen Desaturation Index of 5.2.? The patient spent 6.8 minutes, 1.6% of total sleep time with an oxygen saturation below 88%. Snoring Profile Moderate to loud snoring was present throughout the study. Cardiac Profile The EKG showed normal sinus rhythm.?No arrhythmias or premature beats were seen. The patient had an average pulse rate of 47.7 bpm with a minimum pulse of rate of 43.0 bpm and a maximum pulse rate of 67.0 bpm.? EEG Profile No signs of seizure activity seen. Assessment and Plan Assessment and Plan (1) LIS (obstructive sleep apnea): Code(s): G47.33 - Obstructive sleep apnea (adult) (pediatric) Status: Acute Assessment and Plan: The patient had an overall AHI of 6.2 with desaturation down to 82%. This is consistent with mild sleep apnea. Due to the patient's daytime hypersomnia (ESS of 16/24), he qualifies for treatment. I recommend that the patient be prescribed AutoPAP 5-15 cm H2O, CPAP mask/filters/tubing and heated humidity. A mandibular advancement device is also an acceptable treatment option. Due to the patient's symptoms not resolving with a previous oral appliance, I recommend that she see Sleep Dentistry. This should be used with all episodes of sleep.? Compliance should be reviewed within 31-90 days of starting therapy for usage greater than 4 hours per night greater than 70% of the nights. The patient should be asked about symptoms such as?excessive daytime sleepiness, quality of sleep, decreased nocturia, increased?mental functioning such as memory, mood, and concentration. Data The data obtained during this sleep study is adequate for interpretation. Certification This sleep study has been reviewed by a board certified sleep medicine physician.
[2024-12-14 12:22] VITALS: BMI 35.5
== END 2024-11-23 06:24 | disposition home or self-care (01) ==
LOC: ANHCSM 12:43
PROVIDERS: PCP Family Medicine; Visit Provider Family Medicine
DX: G47.33 Obstructive sleep apnea (adult) (pediatric) (principal)
CPT/HCPCS: 95810